=== PATIENT | female | born 1950 | race Caucasian/White ===

== ENCOUNTER 2017-03-05 22:50 | Inpatient (IN) | payer MEDICARE ==
[2017-03-06 00:02] VITALS: BP 112/63
[2017-03-06] MEDS ORDERED: Magnesium Hydroxide (MOM) 30 mL UDC PO PRN (00:18)
[2017-03-06] MEDS ORDERED: Maalox 30 mL Cup PO PRN (00:18)
[2017-03-06] MEDS: Multivitamin Tab PO SCH (09:08)
[2017-03-06] MEDS: Hydrocodone/APAP 5mg/325mg Tab PO PRN (13:44)
[2017-03-06] MEDS ORDERED: Haloperidol Lactate 5 mg/mL 1mL Vial ONE (17:05)
[2017-03-06] MEDS ORDERED: Haloperidol Lactate 5 mg/mL 1mL Vial IM ONE (17:23)
--- NOTE | 2017-03-07 03:00 | Consultation ---
DATE OF CONSULTATION: 03/06/2017 GENERAL MEDICINE CONSULTATION REASON FOR CONSULTATION: General medicine coverage. HISTORY OF PRESENT ILLNESS: This is a 66-year-old female with past medical of schizophrenia who was transferred from [facility] Emergency Room to [facility] due to [facility], for further psychiatric evaluation and management. A few hours prior to admission, the patient manifested the aggressive behavior at the [facility]. She was very agitated, irritable, violent to staff as well as other residents. The police as well as EMS were notified and she was eventually brought to [facility] Emergency Room. She was seen by psychiatrist in the Emergency Room and recommended transfer to [facility]. PAST MEDICAL HISTORY: 1. Schizophrenia. 2. Alzheimer dementia. 3. Dislocated hip. 4. Anemia of chronic disease. 5. Gastritis. CURRENT MEDICATIONS: Currently on acetaminophen, citalopram, famotidine, hydrocodone/APAP, lorazepam, magnesium hydroxide, metoprolol, quetiapine, Senokot, and zolpidem. ALLERGIES: No known drug allergies. SOCIAL AND FAMILY HISTORY: I was not able to obtain directly from the patient because she is not cooperative at this time. REVIEW OF SYSTEMS: Again, I was not able to decipher directly from the patient because as mentioned, she would not respond to my enquiries. PHYSICAL EXAMINATION: The patient was also not cooperative during my physical exam. GENERAL: The patient is alert and really not in distress. VITAL SIGNS: Her blood pressure is 135/77, pulse 78, and temperature afebrile. SKIN: Warm. No rash, no jaundice appreciated. HEENT: Head normocephalic, atraumatic. Eyes: Extraocular muscles intact, I was not able to assess her pupils at this time. Nose, midline nasal septum. Mouth: Dry mucosa, adequate dentition. NECK: Supple, no adenopathy, no thyromegaly, no bruits. Trachea palpated in the midline. CHEST AND CARDIOVASCULAR: S1, S2. No rub, murmur, nor gallop appreciated. Point of maximal impulse, fifth intercostal space, left midclavicular line. No abdominal or femoral bruits appreciated. LUNGS: Equal expansion. No use of accessory muscles. No supraclavicular retractions, decreased breath sounds, clear to auscultation without wheeze. BREAST: Symmetrical, without any discharge. ABDOMEN: Flat and soft. Positive for bowel sounds. No bruits either diastolic or systolic. RECTAL: The patient refused. GENITOURINARY: The patient refused. MUSCULOSKELETAL: No effusions present in her joints with adequate range of motion. EXTREMITIES: No evidence of edema, cyanosis, nor clubbing, but I was not allowed to palpate her pulses. NEUROLOGIC: As mentioned, the patient is ambulating, but not cooperative at the present time, so I was not able to pursue further my neuro exam. LABORATORY DATA: No labs available at this time. IMPRESSION: 1. Acute decompensation of psychosis. 2. History of schizophrenia. 3. Dislocated hip. 4. Anemia of chronic disease. 5. Gastritis. PLAN: 1. Follow up electrolytes, CBC, lipid panel, as well as TSH. 2. Continue psych meds as well as support. JOB# [id number]
[2017-03-07] MEDS: Multivitamin Tab PO SCH (09:55)
[2017-03-07 10:24] LABS: % BASOPHILS 1.2 % (0.0-2.0); % EOSINOPHILS 2.4 % (0.0-5.0); % LYMPHOCYTES 12.6 % (20.0-50.0); % MONOCYTES 7.7 % (2.0-10.0); % NEUTROPHILS 76.1 % (40.0-80.0); BASOPHILE ABSOLUTE 0.1 Th/cumm (0-0.2); EOSINOPHILE ABSOLUTE 0.2 Th/cmm (0.1-0.4); HEMATOCRIT 37.5 % (41.0-60); HEMOGLOBIN 12.3 gm/dL (12-16); MEAN CELL VOLUME 95.2 fl (81-100); MEAN CORPUSCULAR HEMOGLOBIN 31.4 pg (27.0-31.0); MEAN CORPUSCULAR HGB CONC 32.9 pg (28.0-36.0); MONOCYTE ABSOLUTE 0.6 Th/cmm (0.3-1.0); NEUTROPHILE ABSOLUTE 6.3 Th/cmm (1.8-8.0); PLATELET COUNT 291 Th/cmm (150-400); RED BLOOD COUNT 3.93 Mil/cmm (3.80-5.20); RED CELL DISTRIBUTION WIDTH 12.6 % (11.5-20.0); WHITE BLOOD COUNT 8.2 Th/cmm (4.8-10.8)
[2017-03-07 10:43] LABS: ALB/GLOB RATIO 1.4 (1.0-1.8); ALBUMIN 4.2 gm/dL (3.7-5.3); ALKALINE PHOSPHATASE 138 U/L (34-104); ANION GAP 14.4 (7.0-16.0); BILIRUBIN,TOTAL 0.2 mg/dL (0.3-1.0); BUN - UREA NITROGEN 14 mg/dL (7-25); CALCIUM SERUM 9.6 mg/dL (8.6-10.3); CARBON DIOXIDE 22.3 mEq/L (21.0-31.0); CHLORIDE 106 mEq/L (98-107); CHOLESTEROL 272 mg/dL (<200); CREATININE - SERUM 0.6 mg/dL (0.6-1.2); GFR AFRICAN-AMERICAN > 60.0 ml/min (>90); GFR NON AFRICAN-AMERICAN > 60.0 ml/min; GLUCOSE 111 mg/dL (70-105); HDL -HIGH DENSITY LIPOPROTEIN 54 mg/dL (23-92); POTASSIUM SERUM 3.7 mEq/L (3.5-5.1); SGOT 23 U/L (13-39); SGPT/ALT 19 U/L (7-52); SODIUM SERUM 139 mEq/L (136-145); TOTAL PROTEIN,SERUM 7.2 gm/dL (6.0-8.3); TRIGLYCERIDES 138 mg/dL (<150)
[2017-03-07] MEDS: Atorvastatin Calcium 10 MG TAB PO SCH (20:58)
--- NOTE | 2017-03-08 05:09 | Progress Notes ---
DATE: SUBJECTIVE: The patient was seen and evaluated. The patient's chart reviewed. Overnight, the patient required emergent medications after presenting very delusional and almost trying to hit one of the nursing staff. Today on [id number] evaluation, the patient continues to be very disorganized and delusional, needing a lot of redirection and assistance. MENTAL STATUS EXAMINATION: Disorganized, delusional, paranoid. ASSESSMENT AND PLAN: The patient continues to present aggressive, delusional, and unable to formulate a safe plan. We will continue reinitiating medications to target the patient's severe psychotic symptoms. JOB# [id number]
[2017-03-08] MEDS: Hydrocodone/APAP 5mg/325mg Tab PO PRN (06:29)
[2017-03-08] MEDS: Multivitamin Tab PO SCH (11:20)
--- NOTE | 2017-03-08 13:38 | Psychosocial Evaluation ---
DATE OF SERVICE: INITIAL PSYCHIATRIC EVALUATION The patient was seen and evaluated. The patient's chart reviewed. IDENTIFYING DATA: The patient is a 66-year-old female with paranoid schizophrenia history. JUSTIFICATION FOR ADMISSION AND HISTORY OF PRESENT ILLNESS: This 66-year-old female with history of schizophrenia and dementia, brought in here after the patient was very combative and aggressive in the long term. She was placed on a 5150 at [facility] and transferred for severe aggressive behavior. Today on [id number]-[id number] evaluation, the patient is very disorganized, disheveled, believing that she is being monitored and then becomes very irritable and believe that people are conspiring against her. PAST PSYCHIATRIC HISTORY: History of schizophrenia and dementia. PAST MEDICAL HISTORY: Anemia and dislocated hip history. FAMILY PSYCHIATRIC HISTORY: None. SOCIAL HISTORY: None. ALLERGIES TO MEDICATIONS: NKDA. CURRENT MEDICATIONS: She is on quetiapine 200 mg p.o. at bedtime and 100 mg p.o. b.i.d., famotidine, Celexa 40 mg a day, lorazepam as needed. MENTAL STATUS EXAMINATION: Seems irritable, agitated, disengaged, minimally interactive during the interview, does not give much information, extremely poor historian, disorganized thought process, psychotic and suspicious and paranoid, poor insight, judgment and impulse control. Awake, alert x 2. Unable to assess immediate memory due to patient refusing. ASSESSMENT AND PLAN: This is a 66-year-old female, who continues to present very paranoid, suspicious, unable to formulate safe plan. We will continue with the current medication regimen to target the patient severe aggressive behavior. PRIMARY DIAGNOSIS: Schizophrenia. SECONDARY DIAGNOSES: Dementia with behavioral disturbances with psychosis MEDICAL DIAGNOSIS: History of dislocated hip and anemia. PLAN: 1. Strength: Good ability for insight in the near future. 2. Weaknesses: Poor coping skills. ESTIMATED STAY BETWEEN: 5-10 days. DISCHARGE CRITERIA: The patient is to demonstrate good mood, no suicidal or homicidal ideation, good psychiatric followup, and good peer interaction. JOB# [id number] STONE
[2017-03-08] MEDS: Atorvastatin Calcium 10 MG TAB PO SCH (20:51)
[2017-03-09] MEDS: Hydrocodone/APAP 5mg/325mg Tab PO PRN ×3 (07:05→20:49)
--- NOTE | 2017-03-09 07:33 | Progress Notes ---
DATE: 03/08/2017 SUBJECTIVE: The patient was seen and evaluated. The patient's chart reviewed. This is Dr. Contreras covering myself. Today at nurse's standpoint, the patient still needed a lot of redirection, easily disorganized. Today on [id number] evaluation, it was unable to maintain a linear conversation. She jumps from one topic to another topic and disengaged in the interview. MENTAL STATUS EXAMINATION: Derails, delusional, disorganized thought process. ASSESSMENT AND PLAN: The patient is a 66-year-old female with a history of schizophrenia, unable to formulate a safe plan. We will continue with Seroquel at this time to target the patient's severe disorganized thought process of medications to reach a steady state of the 400 mg of quetiapine. JOB# [id number]
[2017-03-09] MEDS: Multivitamin Tab PO SCH (08:16)
[2017-03-09] MEDS: Atorvastatin Calcium 10 MG TAB PO SCH (20:50)
[2017-03-10] MEDS: Multivitamin Tab PO SCH (08:45)
--- NOTE | 2017-03-10 14:49 | Progress Notes ---
DATE: 03/09/2017 The patient is currently in the hospital, sent by this clinician from [place]. She was combative, aggressive. In fact, she was sent from [place] to [facility] and placed on a hold and from [facility] was sent to [facility] due to her aggressive behaviors. 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 Given her somewhat atypical presentation on exam, the patient is repetitive, disorganized, distraught still in a Lamar chair, requiring prompting and redirection, constant redirection, in fact medications were reviewed. MENTAL STATUS EXAMINATION: Derails, disorganized, confused. PLAN: The patient remains restless, not safe for discharge, not safe for a group home facility. We will continue to monitor and titrate and adjust medications. I did speak with daughter last week. JOB# [id number]
[2017-03-10] MEDS ORDERED: Haloperidol Lactate 5 mg/mL 1mL Vial IM ONE (16:15)
[2017-03-10] MEDS ORDERED: Haloperidol Lactate 5 mg/mL 1mL Vial ONE (16:32)
[2017-03-10] MEDS: Atorvastatin Calcium 10 MG TAB PO SCH (21:42)
[2017-03-11] MEDS: Multivitamin Tab PO SCH (08:59)
--- NOTE | 2017-03-11 09:41 | Progress Notes ---
DATE: SUBJECTIVE: The patient seen, chart reviewed, discussed with staff. The patient requiring a lot of redirection, Lamar chair, trying to get up, babbling speech, nonsensical, can be aggressive and intrusive. Currently on Seroquel 200 mg at bedtime, 100 mg twice daily. Seems that she does have impaired cognitive decline. We will consider Aricept and Namenda. 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 ASSESSMENT: The patient remains symptomatic, not safe for a lower level of care, still disorganized, odd bizarre and requiring high level of redirection. PLAN: We will continue to monitor, adjust medicine. JOB# [id number]
[2017-03-11] MEDS: Therahoney Gel 42.5gm Tube TP SCH (15:40)
[2017-03-11] MEDS: Atorvastatin Calcium 10 MG TAB PO SCH (20:57)
[2017-03-12] MEDS: Therahoney Gel 42.5gm Tube TP SCH (09:06)
[2017-03-12] MEDS: Multivitamin Tab PO SCH (09:10)
[2017-03-12] MEDS: Atorvastatin Calcium 10 MG TAB PO SCH (21:06)
--- NOTE | 2017-03-13 01:41 | Progress Notes ---
DATE: 03/11/2017 Dr. Solano covering for Dr. Contreras. SUBJECTIVE: Chart reviewed and the patient interviewed. Also discussed the patient's condition with the staff and reviewed records and labs. The patient still has unsteady gait and is still trying to get off bed. The patient also is still fearful and keeps calling staff to help her out. At the same time, the patient is calling names of other people, but does not exist and nobody around her when she calling those names. She is still confused and she is still forgetful and needs lots of redirections. She also still seems to be depressed and unable to answer questions coherently. ASSESSMENT: The patient is still confused and disorganized thoughts. TREATMENT PLAN: We will continue Celexa in a dose of 40 mg everyday. Also, increase Aricept to 10 mg everyday and we will continue to follow up her medications and her condition closely. [facility]# [id number]
[2017-03-13] MEDS: Multivitamin Tab PO SCH (08:40)
[2017-03-13] MEDS: Therahoney Gel 42.5gm Tube TP SCH (08:42)
--- NOTE | 2017-03-13 16:22 | Progress Notes ---
DATE: SUBJECTIVE: Chart reviewed and the patient interviewed. Also discussed the patient's condition with the staff and reviewed records and labs. The patient seems to be slightly calmer today and her calling imaginary names and imaginary people seems to be slightly less than the day before. She still calls imaginary people or names of people that are not with her. She seems to be less aggressive and less agitated. Also, her gait seems to be slightly more steady. Otherwise, the patient is compliant with taking her medications, with no side effects of medications. ASSESSMENT: The patient is still disorganized and psychotic. TREATMENT PLAN: Continue to monitor her behavior and her condition closely. Also, Seroquel was adjusted to 100 mg twice a day and 200 mg at bedtime and Aricept was increased yesterday to 10 mg every day. We will continue same dose and we will continue to follow up her behavior and her condition closely. [facility]# [id number]
[2017-03-13] MEDS: Atorvastatin Calcium 10 MG TAB PO SCH (20:43)
[2017-03-14] MEDS: Multivitamin Tab PO SCH (09:03)
[2017-03-14] MEDS: Therahoney Gel 42.5gm Tube TP SCH (09:04)
[2017-03-14] MEDS: Atorvastatin Calcium 10 MG TAB PO SCH (20:50)
--- NOTE | 2017-03-15 08:54 | Progress Notes ---
DATE: 03/13/2017 SUBJECTIVE: Chart reviewed and the patient interviewed. Also discussed the patient's condition with the staff and reviewed records and labs. The patient seems to be slightly calmer. She is still trying to get off the chair. The patient also is still actively hallucinating and calling names while she is in her room by herself of people, they are not existing. She also still has mood swings and she still at times gets agitated and unable to follow directions. Otherwise, the patient continued to comply with taking her medications with no side effects. ASSESSMENT: The patient is still psychotic and confused. TREATMENT PLAN: Seroquel was increased to 100 mg twice a day and 200 mg at bedtime as well as Aricept 10 mg every day. Continue same dose. Continue to monitor her behavior and her condition closely and continue to follow up. The patient's is showing some improvement and not as agitated. JOB# [id number]
[2017-03-15] MEDS: Multivitamin Tab PO SCH (09:24)
[2017-03-15] MEDS: Therahoney Gel 42.5gm Tube TP SCH (09:24)
[2017-03-15] MEDS: Atorvastatin Calcium 10 MG TAB PO SCH (21:11)
--- NOTE | 2017-03-16 06:51 | Progress Notes ---
DATE: 03/15/2017 SUBJECTIVE: The patient seen, chart reviewed, discussed with staff. The patient is still at times trying to get of the Lamar chair. She remains confused; disoriented; AO to name, not place. She knows the year is 2017, not quite sure about the month. She is ruminative, believes that I want her to follow me around which I tell her that is not necessary, still with mood swings, gets agitated, still intrusive, poor boundaries. ASSESSMENT: The patient remains confused, disoriented, still with problems following directions. PLAN: We will continue to monitor. Given her ongoing symptoms, she is not safe for discharge. I did review her medications. We will continue at current dose for now. JOB# [id number]
[2017-03-16] MEDS: Multivitamin Tab PO SCH (08:28)
[2017-03-16] MEDS: Therahoney Gel 42.5gm Tube TP SCH (08:29)
--- NOTE | 2017-03-16 18:56 | Progress Notes ---
DATE: 03/16/2017 SUBJECTIVE: The patient was seen today on 03/16/2017. The patient still at times is trying to get out of chair, confused, disoriented, stating that she lost her car and her keys, ruminative, not making any sense, still with poor boundaries, trying to get up, unruly at times. ASSESSMENT: The patient remains confused, intrusive, poor boundaries, still trying to get up, delusional and confused. PLAN: We will continue to monitor. The patient remains symptomatic, not safe for lower level of care. Currently on Seroquel 100 mg twice daily, 200 mg at bedtime and will be increasing her nighttime dosing of Seroquel to see if we can medicate him and calm down some of her behavioral disturbances. [facility]# [id number]
[2017-03-16] MEDS: Atorvastatin Calcium 10 MG TAB PO SCH (21:21)
--- NOTE | 2017-03-17 07:19 | Progress Notes ---
DATE: 03/14/2017 SUBJECTIVE: Chart reviewed and the patient interviewed. Also, discussed the patient's condition with the staff and reviewed records and labs. The patient continued to be confused and delusional. The patient is suspicious and paranoid. She is also reluctant to take medications and staff have to do efforts in order to convince her to take her medications. She also is still having episodes of yelling and screaming for no apparent reason. She also still seems to be responding to stimuli. Thought processes are disorganized and nonsensical. ASSESSMENT: The patient is still psychotic and agitated. TREATMENT PLAN: We will continue to monitor her behavior and condition closely. Also, continue adjusting psychotropic medications and continue to work on behavioral modification. [facility]# [id number]
[2017-03-17] MEDS: Multivitamin Tab PO SCH (08:25)
[2017-03-17] MEDS: Therahoney Gel 42.5gm Tube TP SCH (08:26)
[2017-03-17] MEDS: Atorvastatin Calcium 10 MG TAB PO SCH (21:50)
--- NOTE | 2017-03-17 23:39 | Progress Notes ---
DATE: 03/17/2017 SUBJECTIVE: The patient is seen, chart reviewed, discussed with staff. The patient remains agitated, demanding to one of the staff members , paranoid, delusional, nonsensical, still intrusive, poor boundaries, still on a Lamar chair, impulsive, unpredictable. ASSESSMENT: The patient remains symptomatic. Recent dose adjustments of medications. Given ongoing symptoms, she is not safe for discharge. PLAN: We will continue to titrate and adjust medications. JOB# [id number]
[2017-03-18] MEDS: Multivitamin Tab PO SCH (08:55)
[2017-03-18] MEDS: Therahoney Gel 42.5gm Tube TP SCH (08:55)
[2017-03-18] MEDS: Atorvastatin Calcium 10 MG TAB PO SCH (21:36)
[2017-03-18] MEDS: QUETIAPINE FUMARATE PO SCH (21:36)
--- NOTE | 2017-03-19 01:28 | Progress Notes ---
DATE: 03/18/2017 SUBJECTIVE: The patient seen, chart reviewed, discussed with staff. The patient was seen today 03/18/2017, remains demanding, paranoid, delusional, intrusive, ruminative, still with ongoing psychotic symptoms, not safe for discharge. She is currently in a Lamar chair. She is somewhat calmer versus yesterday. ASSESSMENT: The patient remains symptomatic, still psychotic, yelling, screaming, intrusive, and ruminative. PLAN: We will continue to monitor given her ongoing symptoms, she is not safe for discharge. We will continue to titrate and adjust medications. [facility]# [id number]
[2017-03-19] MEDS ORDERED: Maalox 30 mL Cup PO PRN (09:12)
[2017-03-19] MEDS ORDERED: Albuterol/Ipratropium Neb 3 ML AERS HHN PRN (09:12)
[2017-03-19] MEDS ORDERED: Acetaminophen 500 MG TAB PO PRN (09:12)
[2017-03-19] MEDS ORDERED: Magnesium Hydroxide (MOM) 30 mL UDC PO PRN (09:12)
[2017-03-19] MEDS ORDERED: Multivitamin Tab PO SCH (09:15)
[2017-03-19] MEDS ORDERED: Therahoney Gel 42.5gm Tube TP SCH (09:15)
[2017-03-19] MEDS: Aspirin 81mg Chewable Tab PO SCH (10:00)
[2017-03-19] MEDS: Multivitamin w/ Minerals Tab PO SCH (10:10)
[2017-03-19] MEDS: Pantoprazole 40 mg EC Tab PO SCH (10:10)
[2017-03-19] MEDS: Multivitamin Tab PO SCH (10:12)
[2017-03-19] MEDS: Therahoney Gel 42.5gm Tube TP SCH (10:13)
[2017-03-19] MEDS: Diclofenac 75 mg Tab PO SCH ×2 (13:00→16:51)
[2017-03-19] MEDS: Atorvastatin Calcium 10 MG TAB PO SCH (21:48)
[2017-03-19] MEDS: QUETIAPINE FUMARATE PO SCH (21:55)
--- NOTE | 2017-03-20 00:17 | Progress Notes ---
DATE: 03/19/2017 SUBJECTIVE: The patient seen, chart reviewed, discussed with staff. The patient remains odd, confused, talking about taking a bus to [place], nonsensical, disoriented, unable to care for her basic needs, likely approaching her baseline, currently in a Lamar chair, making nonsensical, bizarre and erratic statements, still with bizarre behaviors, intrusive, poor boundaries, yelling. MEDICATIONS: Noted. ASSESSMENT: The patient remains symptomatic, bizarre, delusional and confused. PLAN: We will continue to monitor. Given her ongoing symptoms, the patient is not safe for discharge. JOB# [id number]
[2017-03-20] MEDS: Pantoprazole 40 mg EC Tab PO SCH (06:33)
[2017-03-20] MEDS: Multivitamin Tab PO SCH (09:46)
[2017-03-20] MEDS: Aspirin 81mg Chewable Tab PO SCH (09:46)
[2017-03-20] MEDS: Multivitamin w/ Minerals Tab PO SCH (09:46)
[2017-03-20] MEDS: Therahoney Gel 42.5gm Tube TP SCH (09:59)
[2017-03-20] MEDS: Diclofenac 75 mg Tab PO SCH ×3 (13:00→17:54)
--- NOTE | 2017-03-20 19:43 | Progress Notes ---
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 Eating with prompting. Medications were reviewed including dosages and frequencies. ASSESSMENT: The patient remains symptomatic, still highly confused, disoriented, rambling nonsensically. PLAN: We will continue to monitor. The patient may benefit from adjustments of medications. We will increase Seroquel today to follow up. JOB# [id number]
[2017-03-20] MEDS: Atorvastatin Calcium 10 MG TAB PO SCH (20:26)
[2017-03-21] MEDS: Pantoprazole 40 mg EC Tab PO SCH (07:59)
--- NOTE | 2017-03-21 08:04 | Progress Notes ---
DATE: SUBJECTIVE: The patient seen, chart reviewed, discussed with staff. The patient is still talking about taking a bus to a different state, talking about nonsensical topics something from one topic to the next, highly confused, disoriented, wandering around, requiring a lot of prompting, a lot of redirection, highly confused, impulsive, and unpredictable. 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 MEDICATIONS: Reviewed. ASSESSMENT: The patient remains symptomatic, highly confused, requiring a lot of redirection, gravely disabled. PLAN: We will continue to monitor, continue to make appropriate medication adjustments. JOB# [id number]
[2017-03-21] MEDS: Multivitamin Tab PO SCH (08:25)
[2017-03-21] MEDS: Aspirin 81mg Chewable Tab PO SCH (08:27)
[2017-03-21] MEDS: Multivitamin w/ Minerals Tab PO SCH (08:36)
[2017-03-21] MEDS: Therahoney Gel 42.5gm Tube TP SCH (08:36)
[2017-03-21] MEDS: Diclofenac 75 mg Tab PO SCH ×2 (12:42→16:50)
[2017-03-21] MEDS: Atorvastatin Calcium 10 MG TAB PO SCH (20:32)
[2017-03-22] MEDS: Pantoprazole 40 mg EC Tab PO SCH (06:31)
[2017-03-22] MEDS: Multivitamin Tab PO SCH (08:28)
[2017-03-22] MEDS: Aspirin 81mg Chewable Tab PO SCH (08:28)
[2017-03-22] MEDS: Multivitamin w/ Minerals Tab PO SCH (08:29)
[2017-03-22] MEDS: Therahoney Gel 42.5gm Tube TP SCH (09:40)
[2017-03-22] MEDS: Diclofenac 75 mg Tab PO SCH ×2 (11:24→16:26)
[2017-03-22] MEDS: Atorvastatin Calcium 10 MG TAB PO SCH (20:21)
[2017-03-22] MEDS: Hydrocodone/APAP 5mg/325mg Tab PO PRN (22:00)
[2017-03-23] MEDS: Pantoprazole 40 mg EC Tab PO SCH (06:54)
--- NOTE | 2017-03-23 07:25 | Progress Notes ---
DATE: 03/22/2017 The patient is currently in the hospital, symptomatic, highly confused, disoriented, talking about driving her car to [place]. She is nonsensical on exam. The patient has absolutely no plans for self-care. She is unable to verbalize the plan for self-care. ASSESSMENT: The patient remains symptomatic, highly disoriented, disorganized, nonsensical on exam, rambling. We will monitor and follow up. Continue to adjust and titrate medications. [facility]# [id number]
[2017-03-23] MEDS: Aspirin 81mg Chewable Tab PO SCH (09:05)
[2017-03-23] MEDS: Multivitamin Tab PO SCH (09:05)
[2017-03-23] MEDS: Multivitamin w/ Minerals Tab PO SCH (09:05)
[2017-03-23] MEDS: Therahoney Gel 42.5gm Tube TP SCH (09:05)
[2017-03-23] MEDS: Diclofenac 75 mg Tab PO SCH ×2 (11:01→16:23)
[2017-03-23] MEDS: Atorvastatin Calcium 10 MG TAB PO SCH (20:44)
[2017-03-23] MEDS: Hydrocodone/APAP 5mg/325mg Tab PO PRN (21:52)
--- NOTE | 2017-03-24 05:36 | Progress Notes ---
DATE: 03/23/2017 SUBJECTIVE: The patient was seen on 03/23/2017, currently in the hospital, symptomatic, disoriented, still talking about driving her car to [place], wandering the units, mumbling to self, gravely disabled, unable to verbalize or carry through a plan for self-care due to her confusional state. MEDICATIONS: Reviewed. ASSESSMENT: The patient remains symptomatic, disoriented, disorganized, and not safe for discharge. We will continue to adjust and titrate medications. We are also trying to get her a safe discharge plan. JOB# [id number]
[2017-03-24] MEDS: Pantoprazole 40 mg EC Tab PO SCH (06:42)
[2017-03-24] MEDS: Therahoney Gel 42.5gm Tube TP SCH (09:19)
[2017-03-24] MEDS: Multivitamin w/ Minerals Tab PO SCH (09:20)
[2017-03-24] MEDS: Aspirin 81mg Chewable Tab PO SCH (09:20)
[2017-03-24] MEDS: Multivitamin Tab PO SCH (09:20)
--- NOTE | 2017-03-24 12:26 | Progress Notes ---
DATE: 03/24/2017 The patient is seen today, 03/24/2017. Remains disoriented, still confused, mumbling to self, but calmer, more cooperative, more amenable to treatment. She is requiring some prompting and redirection, seen pacing at times, unable to verbalize and clear plan for self-care due to her ongoing confusional state. MEDICATIONS: Reviewed. ASSESSMENT: The patient remains symptomatic, gravely disabled. We are trying to help her with placement. We will continue to monitor and titrate medications. She is significantly calmer, no longer in a Lamar chair. JOB# [id number]
[2017-03-24] MEDS: Diclofenac 75 mg Tab PO SCH ×2 (12:49→17:24)
[2017-03-24] MEDS: Hydrocodone/APAP 5mg/325mg Tab PO PRN (15:15)
[2017-03-24] MEDS ORDERED: Venelex 60gm Tube TP SCH (16:15)
[2017-03-24] MEDS ORDERED: Haloperidol Lactate 5 mg/mL 1mL Vial ONE (19:24)
[2017-03-24] MEDS: Atorvastatin Calcium 10 MG TAB PO SCH (21:15)
[2017-03-25] MEDS: Venelex 60gm Tube TP SCH (09:54)
[2017-03-25] MEDS: Multivitamin w/ Minerals Tab PO SCH (09:54)
[2017-03-25] MEDS: Pantoprazole 40 mg EC Tab PO SCH (09:54)
[2017-03-25] MEDS: Aspirin 81mg Chewable Tab PO SCH (09:54)
[2017-03-25] MEDS: Therahoney Gel 42.5gm Tube TP SCH (09:55)
[2017-03-25] MEDS: Diclofenac 75 mg Tab PO SCH ×2 (13:32→16:22)
--- NOTE | 2017-03-25 20:54 | Progress Notes ---
DATE: 03/25/2017 The patient seen, chart reviewed, discussed with staff. The patient was quite unruly last night, agitated, posturing towards staff, yelling, screaming and not redirectable. Today, she is calmer, but has no idea what happened yesterday, very confused, disoriented. She did receive emergency medications last night. MEDICATIONS: Reviewed. ASSESSMENT: The patient remains symptomatic, confused, disoriented, still unruly, agitated, got Emergency Haldol last night. PLAN: We will monitor for further 24 hours. Placement has been confirmed, but given her unruly behaviors there are overt safety concerns. JOB# [id number]
[2017-03-25] MEDS: Atorvastatin Calcium 10 MG TAB PO SCH (21:30)
[2017-03-26] MEDS: Pantoprazole 40 mg EC Tab PO SCH (06:53)
--- NOTE | 2017-03-26 08:17 | Discharge Summary ---
DATE OF DISCHARGE: 03/26/2017 DISCHARGE DATE: 03/26/2017. JUSTIFICATION FOR HOSPITALIZATION: Out of control and unruly behaviors. HISTORY OF PRESENT ILLNESS: A 66-year-old female brought in on a hold, aggressive at the [facility], requiring constant prompting, redirection, unable to be cared for their, highly confused, disoriented, irritable, believing people are conspiring against her. PAST PSYCHIATRIC HISTORY: Dementia. SOCIAL HISTORY: None. ALLERGIES: No known drug allergies. CURRENT MEDICATIONS: Noted. MENTAL STATUS EXAMINATION: Please see full psych eval for details. PROVISIONAL DIAGNOSIS: Rule out schizophrenia, also dementia, severe cognitive decline. PAST MEDICAL HISTORY: Please see full H and P. HOSPITAL COURSE: After initial assessment, the patient was admitted to the hospital. Medications were adjusted and titrated. Over the course of the hospitalization, she did improve, mood improved, affect improved, getting along better with staff and peers, still with some difficulty sleeping at night, but as the hospitalization progressed, her sleep did grossly normalized. She remained somewhat impulsive and unpredictable, but toward the latter end of her hospitalization, she was more redirectable. No SI. No HI. CONDITION UPON DISCHARGE: Improved, allowing ADLs, better eye contact, remains confused and disoriented. No SI, no HI. No overt psychotic symptoms and no agitation. She remains, however, quite disoriented. Insight and judgment diminished. PROVISIONAL DIAGNOSIS: Rule out schizophrenia, also dementia with behaviors. MEDICAL: Please see full H and P. PROGNOSIS: The patient follows up at the dementia unit in [place] and remains treatment compliant. Prognosis will improve, otherwise guarded. JOB# [id number]
[2017-03-26] MEDS: Aspirin 81mg Chewable Tab PO SCH (08:53)
[2017-03-26] MEDS: Multivitamin w/ Minerals Tab PO SCH (08:53)
[2017-03-26] MEDS: Therahoney Gel 42.5gm Tube TP SCH (08:56)
[2017-03-26] MEDS: Venelex 60gm Tube TP SCH (08:56)
[2017-03-26] MEDS: Diclofenac 75 mg Tab PO SCH (12:12)
[2017-03-26] MEDS: Hydrocodone/APAP 5mg/325mg Tab PO PRN (13:12)
== END 2017-03-26 15:15 | DRG 885 ==
LOC: GERO 22:50
PROVIDERS: ADMIT Psychiatry & Neurology Psychiatry; ATTEND Psychiatry & Neurology Psychiatry
DX: F20.9 Schizophrenia, unspecified (principal); F02.81 Dementia in other diseases classified elsewhere, unspecified severity, with behavioral disturbance; G30.9 Alzheimer's disease, unspecified; K29.70 Gastritis, unspecified, without bleeding; D63.8 Anemia in other chronic diseases classified elsewhere; F29 Unspecified psychosis not due to a substance or known physiological condition
CPT/HCPCS: 36415-UA; 80053-TC; 80061-TC; 84443-TC; 85025-TC; 90899; G0410; J1200; J1630; J2060; Z7610

== ENCOUNTER 2017-06-29 23:51 | Inpatient (IN) | payer MEDICARE, OTHER ==
[2017-06-30 00:20] LABS: % BASOPHILS 1.1 % (0.0-2.0); BASOPHILE ABSOLUTE 0.1 Th/cumm (0-0.2); EOSINOPHILE ABSOLUTE 0.2 Th/cmm (0.1-0.4); MEAN CORPUSCULAR HGB CONC 34.1 pg (28.0-36.0); RED BLOOD COUNT 3.93 Mil/cmm (3.80-5.20); RED CELL DISTRIBUTION WIDTH 12.6 % (11.5-20.0); WHITE BLOOD COUNT 6.3 Th/cmm (4.8-10.8)
[2017-06-30 00:28] LABS: % EOSINOPHILS 3.4 % (0.0-5.0); % LYMPHOCYTES 31.5 % (20.0-50.0); % MONOCYTES 12.7 % (2.0-10.0); % NEUTROPHILS 51.3 % (40.0-80.0); HEMATOCRIT 36.2 % (41.0-60); HEMOGLOBIN 12.3 gm/dL (12-16); MEAN CELL VOLUME 92.1 fl (81-100); MEAN CORPUSCULAR HEMOGLOBIN 31.4 pg (27.0-31.0); MEAN PLATELET VOLUME 7.7 fl; MONOCYTE ABSOLUTE 0.8 Th/cmm (0.3-1.0); NEUTROPHILE ABSOLUTE 3.2 Th/cmm (1.8-8.0); PLATELET COUNT 278 Th/cmm (150-400)
--- NOTE | 2017-06-30 00:36 | ED Physician Chart ---
ED Chief Complaint/HPI - Patient Information Date Seen:: 06/30/17 Time Seen:: 00:35 Chief Complaint:: Increased agitation History of Present Illness:: 66 yo female was brought from SNF to ER for evaluation of increased confusion and agitation. Patient was screaming in the ER. Allergies:: Allergies Allergy/AdvReac Type Severity Reaction Status Date / Time No Known Allergies Allergy Verified 12/17/16 13:02 Vitals:: Vital Signs - 8 hr 06/29/17 23:52 Temp 97.7 F HR 69 RR 18 BP 129/68 O2 Sat % 96 ED Review of Systems - Review of Systems General/Constitutional: No fever Skin: No bruising Head: No headache Eyes: No pain ENT: No nasal drainage Neck: No neck pain Cardio Vascular: No chest pain Pulmonary: No SOB GI: No nausea, No vomiting Musculoskeletal: No bone or joint pain Psychiatric: Prior psych history Neurological: No focal symptoms ED Past Medical History - Past Medical History Past Medical History: Arthritis, Other (Hip Dislocation, Opoid dependence) Social History: Non Smoker, No Alcohol, No Drug Use Surgical History: HIP Psychiatricy History: Schizophrenia Family Medical History - Family Member Mother History Unknown: Yes Ethnicity: Unknown Living Status: Unknown Hx Family Hypertension: Yes ED Physical Exam - Physical Examination General/Constitutional: Awake Head: Atraumatic Eyes: PERRL Skin: No ecchymosis ENMT: Nasal exam nl Neck: No nuchal rigidity Respiratory: No Wheeze/Rhonchi/Rales Cardio Vascular: RRR, No murmur, gallop, rubs, NL S1 S2 GI: No tenderness/rebounding/guarding Extremities: normal strength in all extremities Neuro/Psych: No focal deficits Other Neuro/Psych comments:: oriented to self and place, not time ED Labs/Radiology/EKG Results - Lab Results Results: Laboratory Tests 06/29/17 00:05 WBC 6.3 RBC 3.93 Hgb 12.3 Hct 36.2 L MCV 92.1 MCH 31.4 H MCHC Differential 34.1 RDW 12.6 Plt Count 278 MPV 7.7 Neutrophils % 51.3 Lymphocytes % 31.5 Monocytes % 12.7 H Eosinophils % 3.4 Basophils % 1.1 Laboratory Last Values WBC 5.3 Th/cmm (4.8-10.8) 06/30/17 06:15 RBC 3.65 Mil/cmm (3.80-5.20) L 06/30/17 06:15 Hgb 11.5 gm/dL (12-16) L 06/30/17 06:15 Hct 33.6 % (41.0-60) L 06/30/17 06:15 MCV 92.0 fl (81-100) 06/30/17 06:15 MCH 31.6 pg (27.0-31.0) H 06/30/17 06:15 MCHC Differential 34.3 pg (28.0-36.0) 06/30/17 06:15 RDW 12.6 % (11.5-20.0) 06/30/17 06:15 Plt Count 257 Th/cmm (150-400) 06/30/17 06:15 MPV 8.2 fl 06/30/17 06:15 Neutrophils % 55.2 % (40.0-80.0) 06/30/17 06:15 Lymphocytes % 24.8 % (20.0-50.0) 06/30/17 06:15 Monocytes % 14.8 % (2.0-10.0) H 06/30/17 06:15 Eosinophils % 4.3 % (0.0-5.0) 06/30/17 06:15 Basophils % 0.9 % (0.0-2.0) 06/30/17 06:15 Sodium 140 mEq/L (136-145) 06/30/17 06:13 Potassium 3.9 mEq/L (3.5-5.1) 06/30/17 06:13 Chloride 106 mEq/L (98-107) 06/30/17 06:13 Carbon Dioxide 27.6 mEq/L (21.0-31.0) 06/30/17 06:13 Anion Gap 10.3 (7.0-16.0) 06/30/17 06:13 BUN 14 mg/dL (7-25) 06/30/17 06:13 Creatinine 0.6 mg/dL (0.6-1.2) 06/30/17 06:13 Est GFR ( Amer) > 60.0 ml/min (>90) 06/30/17 06:13 Est GFR (Non-Af Amer) > 60.0 ml/min 06/30/17 06:13 BUN/Creatinine Ratio 23.3 06/30/17 06:13 Glucose 87 mg/dL (70-105) 06/30/17 06:13 Calcium 8.9 mg/dL (8.6-10.3) 06/30/17 06:13 Magnesium 2.0 mg/dL (1.9-2.7) 06/30/17 00:05 Total Bilirubin 0.3 mg/dL (0.3-1.0) 06/29/17 00:05 AST 26 U/L (13-39) 06/29/17 00:05 ALT 35 U/L (7-52) 06/29/17 00:05 Alkaline Phosphatase 126 U/L (34-104) H 06/29/17 00:05 Troponin I < 0.01 ng/mL (0.01-0.05) L 06/30/17 00:05 B-Natriuretic Peptide 19.8 pg/mL (5.0-100.0) 06/30/17 00:05 Total Protein 6.8 gm/dL (6.0-8.3) 06/29/17 00:05 Albumin 3.9 gm/dL (3.7-5.3) 06/29/17 00:05 Globulin 2.9 gm/dL 06/29/17 00:05 Albumin/Globulin Ratio 1.3 (1.0-1.8) 06/29/17 00:05 TSH 1.93 uIU/ml (0.34-5.60) 06/29/17 00:05 Urine Source RANDOM 06/30/17 01:10 Urine Color YELLOW 06/30/17 01:10 Urine Clarity CLEAR (CLEAR) 06/30/17 01:10 Urine pH 7.0 (4.6 - 8.0) 06/30/17 01:10 Ur Specific [place] 1.010 (1.005-1.030) 06/30/17 01:10 Urine Protein NEGATIVE mg/dL (NEGATIVE) 06/30/17 01:10 Urine Glucose (UA) NEGATIVE mg/dL (NEGATIVE) 06/30/17 01:10 Urine Ketones NEGATIVE mg/dL (NEGATIVE) 06/30/17 01:10 Urine Blood NEGATIVE (NEGATIVE) 06/30/17 01:10 Urine Nitrate NEGATIVE (NEGATIVE) 06/30/17 01:10 Urine Bilirubin NEGATIVE (NEGATIVE) 06/30/17 01:10 Urine Urobilinogen 0.2 E.U./dL (0.2 - 1.0) 06/30/17 01:10 Ur Leukocyte Esterase TRACE (NEGATIVE) H 06/30/17 01:10 Urine RBC 0-2 /hpf (0-5) 06/30/17 01:10 Urine WBC 2-5 /hpf (0-5) 06/30/17 01:10 Ur Epithelial Cells FEW /lpf (FEW) 06/30/17 01:10 Urine Bacteria FEW /hpf (NONE SEEN) 06/30/17 01:10 - Radiology Results Results: CXR: No focal consolidation ED Assessment - Assessment General Assessment: UTI Psychosis Schizophrenia Assessment/Comments:: CBC, CMP, UA CXR, EKG Rocephin NS 1L IV bolus Admit to med surg ED Septic Shock - . Is Septic Shock (SBP<90, OR Lactate>4 mmol\L) present?: No - <6hrs of presentation: Vital Signs: Vital Signs - 8 hr 06/29/17 23:52 Temp 97.7 F HR 69 RR 18 BP 129/68 O2 Sat % 96 ED Reassessment (Disposition) - Reassessment Reassessment Condition:: Improved - Patient Disposition Discharge/Transfer:: Acute Care w/in this hosp Admitting Medical Physician:: Jonh Bennett ED Discharge Plan - Patient Disposition Admit/Discharge/Transfer: Acute Care w/in this hosp
[2017-06-30 00:44] LABS: ALB/GLOB RATIO 1.3 (1.0-1.8); ALBUMIN 3.9 gm/dL (3.7-5.3); ALKALINE PHOSPHATASE 126 U/L (34-104); BILIRUBIN,TOTAL 0.3 mg/dL (0.3-1.0); BUN - UREA NITROGEN 18 mg/dL (7-25); CALCIUM SERUM 9.4 mg/dL (8.6-10.3); CARBON DIOXIDE 26.1 mEq/L (21.0-31.0); CHLORIDE 102 mEq/L (98-107); CREATININE - SERUM 0.7 mg/dL (0.6-1.2); GFR AFRICAN-AMERICAN > 60.0 ml/min (>90); GFR NON AFRICAN-AMERICAN > 60.0 ml/min; GLUCOSE 98 mg/dL (70-105); POTASSIUM SERUM 4.1 mEq/L (3.5-5.1); SGOT 26 U/L (13-39); SGPT/ALT 35 U/L (7-52); SODIUM SERUM 136 mEq/L (136-145); TOTAL PROTEIN,SERUM 6.8 gm/dL (6.0-8.3)
[2017-06-30 02:02] LABS: URINE MICROSCOPIC INDICATED? YES; URINE SOURCE RANDOM
[2017-06-30 02:05] LABS: URINE BILIRUBIN NEGATIVE (NEGATIVE); URINE BLOOD NEGATIVE (NEGATIVE); URINE GLUCOSE (UA) NEGATIVE (NEGATIVE); URINE KETONE NEGATIVE (NEGATIVE); URINE LEUKOCYTE ESTERASE TRACE (NEGATIVE); URINE NITRATE NEGATIVE (NEGATIVE); URINE PROTEIN NEGATIVE (NEGATIVE); URINE UROBILINOGEN 0.2 E.U./dL (0.2 - 1.0)
[2017-06-30 02:17] LABS: URINE CLARITY CLEAR (CLEAR); URINE COLOR YELLOW
[2017-06-30 02:25] LABS: URINE BACTERIA FEW /hpf (NONE SEEN); URINE EPITHELIAL CELLS FEW /lpf (FEW); URINE RBC 0-2 /hpf (0-5)
[2017-06-30] MEDS ORDERED: cefTRIAXone 1 GM in Sodium Chloride 0.9% 50 ML IV ONE (02:45)
[2017-06-30] MEDS ORDERED: Sodium Chloride 0.9% 1,000 ML IV ONE (02:46)
[2017-06-30 07:43] LABS: % BASOPHILS 0.9 % (0.0-2.0); % EOSINOPHILS 4.3 % (0.0-5.0); % LYMPHOCYTES 24.8 % (20.0-50.0); % MONOCYTES 14.8 % (2.0-10.0); % NEUTROPHILS 55.2 % (40.0-80.0); EOSINOPHILE ABSOLUTE 0.2 Th/cmm (0.1-0.4); HEMATOCRIT 33.6 % (41.0-60); HEMOGLOBIN 11.5 gm/dL (12-16); LYMPHOCYTE ABSOLUTE 1.3 Th/cmm (1.5-3.0); MEAN CORPUSCULAR HEMOGLOBIN 31.6 pg (27.0-31.0); MEAN CORPUSCULAR HGB CONC 34.3 pg (28.0-36.0); MEAN PLATELET VOLUME 8.2 fl; MONOCYTE ABSOLUTE 0.8 Th/cmm (0.3-1.0); PLATELET COUNT 257 Th/cmm (150-400); RED BLOOD COUNT 3.65 Mil/cmm (3.80-5.20); RED CELL DISTRIBUTION WIDTH 12.6 % (11.5-20.0); WHITE BLOOD COUNT 5.3 Th/cmm (4.8-10.8)
[2017-06-30 07:50] LABS: ANION GAP 10.3 (7.0-16.0); BUN - UREA NITROGEN 14 mg/dL (7-25); CALCIUM SERUM 8.9 mg/dL (8.6-10.3); CARBON DIOXIDE 27.6 mEq/L (21.0-31.0); CHLORIDE 106 mEq/L (98-107); CREATININE - SERUM 0.6 mg/dL (0.6-1.2); GFR AFRICAN-AMERICAN > 60.0 ml/min (>90); GFR NON AFRICAN-AMERICAN > 60.0 ml/min; GLUCOSE 87 mg/dL (70-105); POTASSIUM SERUM 3.9 mEq/L (3.5-5.1); SODIUM SERUM 140 mEq/L (136-145)
[2017-06-30] MEDS ORDERED: Acetaminophen 500 MG TAB PO PRN (08:22)
[2017-06-30] MEDS ORDERED: Fleet Enema 135 mL RC PRN (08:22)
[2017-06-30] MEDS ORDERED: Ipratropium Neb 0.5 mg/2.5 mL UD IH PRN (08:24)
[2017-06-30] MEDS ORDERED: Albuterol Nebulizer 2.5mg/3mL HHN PRN (08:24)
--- NOTE | 2017-06-30 08:51 | Diagnostic Imaging Report ---
CHEST X-RAY: AP view INDICATION: Shortness of breath COMPARISON: 01/14/2017 FINDINGS: Chronic lung changes are noted. There is no focal consolidation or pleural effusions. Degenerative changes of the spine are noted. IMPRESSION: No acute cardiopulmonary disease.
[2017-06-30] MEDS ORDERED: VTE Chemical Prophylaxis Screen/Admission MC PRN (09:12)
[2017-06-30] MEDS: Vitamin D3 2,000 IU SGL PO SCH (10:01)
[2017-06-30] MEDS: Haldol Oral Sol.(concentrate) 10 mg/5 mL Udc PO SCH ×2 (10:02→21:44)
[2017-06-30] MEDS: cefTRIAXone 1 GM in Sodium Chloride 0.9% 50 ML IV SCH (10:48)
[2017-06-30] MEDS: D5-0.45NS 1,000 ML IV SCH ×2 (10:48→21:00)
[2017-06-30] MEDS ORDERED: Haloperidol Lactate 5 mg/mL 1mL Vial IM ONE (14:33)
--- NOTE | 2017-06-30 15:38 | Internal Medicine Prog Note ---
Internal Medicine Subjective - Subjective Service Date: 06/30/17 ([id number] hn ) Internal Medicine Objective - Results Result Diagrams: 06/30/17 06:15 06/30/17 06:13 Recent Labs: Laboratory Last Values WBC 5.3 Th/cmm (4.8-10.8) 06/30/17 06:15 RBC 3.65 Mil/cmm (3.80-5.20) L 06/30/17 06:15 Hgb 11.5 gm/dL (12-16) L 06/30/17 06:15 Hct 33.6 % (41.0-60) L 06/30/17 06:15 MCV 92.0 fl (81-100) 06/30/17 06:15 MCH 31.6 pg (27.0-31.0) H 06/30/17 06:15 MCHC Differential 34.3 pg (28.0-36.0) 06/30/17 06:15 RDW 12.6 % (11.5-20.0) 06/30/17 06:15 Plt Count 257 Th/cmm (150-400) 06/30/17 06:15 MPV 8.2 fl 06/30/17 06:15 Neutrophils % 55.2 % (40.0-80.0) 06/30/17 06:15 Lymphocytes % 24.8 % (20.0-50.0) 06/30/17 06:15 Monocytes % 14.8 % (2.0-10.0) H 06/30/17 06:15 Eosinophils % 4.3 % (0.0-5.0) 06/30/17 06:15 Basophils % 0.9 % (0.0-2.0) 06/30/17 06:15 Sodium 140 mEq/L (136-145) 06/30/17 06:13 Potassium 3.9 mEq/L (3.5-5.1) 06/30/17 06:13 Chloride 106 mEq/L (98-107) 06/30/17 06:13 Carbon Dioxide 27.6 mEq/L (21.0-31.0) 06/30/17 06:13 Anion Gap 10.3 (7.0-16.0) 06/30/17 06:13 BUN 14 mg/dL (7-25) 06/30/17 06:13 Creatinine 0.6 mg/dL (0.6-1.2) 06/30/17 06:13 Est GFR ( Amer) > 60.0 ml/min (>90) 06/30/17 06:13 Est GFR (Non-Af Amer) > 60.0 ml/min 06/30/17 06:13 BUN/Creatinine Ratio 23.3 06/30/17 06:13 Glucose 87 mg/dL (70-105) 06/30/17 06:13 Calcium 8.9 mg/dL (8.6-10.3) 06/30/17 06:13 Magnesium 2.0 mg/dL (1.9-2.7) 06/30/17 00:05 Total Bilirubin 0.3 mg/dL (0.3-1.0) 06/29/17 00:05 AST 26 U/L (13-39) 06/29/17 00:05 ALT 35 U/L (7-52) 06/29/17 00:05 Alkaline Phosphatase 126 U/L (34-104) H 06/29/17 00:05 Troponin I < 0.01 ng/mL (0.01-0.05) L 06/30/17 00:05 B-Natriuretic Peptide 19.8 pg/mL (5.0-100.0) 06/30/17 00:05 Total Protein 6.8 gm/dL (6.0-8.3) 06/29/17 00:05 Albumin 3.9 gm/dL (3.7-5.3) 06/29/17 00:05 Globulin 2.9 gm/dL 06/29/17 00:05 Albumin/Globulin Ratio 1.3 (1.0-1.8) 06/29/17 00:05 TSH 1.93 uIU/ml (0.34-5.60) 06/29/17 00:05 Urine Source RANDOM 06/30/17 01:10 Urine Color YELLOW 06/30/17 01:10 Urine Clarity CLEAR (CLEAR) 06/30/17 01:10 Urine pH 7.0 (4.6 - 8.0) 06/30/17 01:10 Ur Specific [place] 1.010 (1.005-1.030) 06/30/17 01:10 Urine Protein NEGATIVE mg/dL (NEGATIVE) 06/30/17 01:10 Urine Glucose (UA) NEGATIVE mg/dL (NEGATIVE) 06/30/17 01:10 Urine Ketones NEGATIVE mg/dL (NEGATIVE) 06/30/17 01:10 Urine Blood NEGATIVE (NEGATIVE) 06/30/17 01:10 Urine Nitrate NEGATIVE (NEGATIVE) 06/30/17 01:10 Urine Bilirubin NEGATIVE (NEGATIVE) 06/30/17 01:10 Urine Urobilinogen 0.2 E.U./dL (0.2 - 1.0) 06/30/17 01:10 Ur Leukocyte Esterase TRACE (NEGATIVE) H 06/30/17 01:10 Urine RBC 0-2 /hpf (0-5) 06/30/17 01:10 Urine WBC 2-5 /hpf (0-5) 06/30/17 01:10 Ur Epithelial Cells FEW /lpf (FEW) 06/30/17 01:10 Urine Bacteria FEW /hpf (NONE SEEN) 06/30/17 01:10 - Physical Exam Vitals and I&O: Vital Signs Temp 97.6 F 06/30/17 11:50 Pulse 81 06/30/17 13:09 Resp 18 06/30/17 13:09 BP 126/81 06/30/17 11:50 Pulse Ox 95 06/30/17 13:09 Intake & Output 06/29/17 06/30/17 06/30/17 18:59 06:59 18:59 Intake Total 2100 Balance 2100 Intake: Intake, IV Amount 2100 Sodium Chloride 0.9% 1, 1000 000 ml @ Wide Open IV . Q0M ONE Rx#:[id number] cefTRIAXone 1 gm In 50 Sodium Chloride 0.9% 50 ml @ 100 mls/hr IV X1 ONE Rx#:[id number] Active Medications: Current Medications Acetaminophen (Tylenol Extra Strength) 500 mg PO Q6H PRN PRN Reason: MOD PAIN Stop: 08/29/17 08:21 Acetaminophen (Tylenol) 650 mg PO Q4H PRN PRN Reason: Pain Or Fever above 101 Stop: 08/29/17 08:23 Albuterol Sulfate (Albuterol 2.5mg/3ml Neb Ud) 2.5 mg HHN Q2HRT PRN PRN Reason: Shortness of Breath or Wheeze Stop: 08/29/17 08:23 Bisacodyl (Dulcolax 10 Mg Supp) 10 mg RC DAILY PRN PRN Reason: Constipation Stop: 08/29/17 08:21 Citalopram Hydrobromide (Celexa) 40 mg PO DAILY [facility] PRN Reason: Protocol Stop: 08/29/17 08:59 Last Admin: 06/30/17 10:01 Dose: 40 mg Cyanocobalamin (Vitamin B12) 1,000 mcg PO DAILY [facility] Stop: 08/29/17 08:59 Last Admin: 06/30/17 10:01 Dose: 1,000 mcg Divalproex Sodium (Depakote Dr) 250 mg PO BID GEOFFREY PRN Reason: Protocol Stop: 08/29/17 08:59 Last Admin: 06/30/17 10:01 Dose: 250 mg Haloperidol Lactate (Haldol Concentrate 10mg/5ml Susp) 2 mg PO Q12HR [facility] PRN Reason: Protocol Stop: 08/29/17 08:59 Last Admin: 06/30/17 10:02 Dose: 2 mg Heparin Sodium (Porcine) (Heparin) 5,000 units SUBQ Q12H [facility] Stop: 08/29/17 20:59 Ceftriaxone Sodium 1 gm/ (Sodium Chloride) 50 mls @ 100 mls/hr IV Q24HR [facility] Stop: 08/29/17 08:29 Last Admin: 06/30/17 10:48 Dose: 100 mls/hr Dextrose/Sodium Chloride (D5-0.45ns) 1,000 mls @ 80 mls/hr IV .[id number] [facility] Stop: 08/29/17 08:29 Last Admin: 06/30/17 10:48 Dose: 80 mls/hr Ipratropium [employer] (Atrovent Neb 0.5mg/2.5ml) 0.5 mg IH Q2HRT PRN PRN Reason: Shortness of Breath or Wheeze Stop: 08/29/17 08:23 Lorazepam (Ativan) 0.5 mg IVP Q4HR PRN; Protocol PRN Reason: Agitation Stop: 08/29/17 11:43 Last Admin: 06/30/17 12:21 Dose: 0.5 mg Miscellaneous (Vte Chemical Prophylaxis Screen/ Admission) 1 ea [facility] PRN PRN PRN Reason: PROTOCOL Stop: 08/29/17 09:11 Ondansetron HCl (Zofran) 4 mg IV Q8H PRN PRN Reason: Nausea / Vomiting Stop: 08/29/17 08:23 Quetiapine Fumarate (Seroquel) 400 mg PO HS [facility] PRN Reason: Protocol Stop: 08/29/17 20:59 Quetiapine Fumarate (Seroquel Xr) 200 mg PO BID [facility]Y PRN Reason: Protocol Stop: 08/29/17 08:59 Last Admin: 06/30/17 10:02 Dose: 200 mg Sodium Phosphate (Fleet Enema) 135 ml RC DAILY PRN PRN Reason: Constipation Stop: 08/29/17 08:21 Tramadol HCl (Ultram) 50 mg PO Q6H PRN PRN Reason: Severe pain Stop: 08/29/17 08:21 Vitamin D (Vitamin D3) 2,000 iu PO DAILY [facility] Stop: 08/29/17 08:59 Last Admin: 06/30/17 10:01 Dose: 2,000 iu
--- NOTE | 2017-06-30 17:45 | History & Physical ---
ADMIT DATE: 06/30/2017 CHIEF COMPLAINT: Acute UTI and altered mental status. HISTORY OF PRESENT ILLNESS: This is a 66-year-old female who is a skilled nursing resident ____ who is admitted here to the med/surg unit due to increased confusion. In the ER, the patient was noted with acute UTI. For further management, the patient is now admitted here to the med-surg unit. PAST MEDICAL HISTORY: Hip dislocation, osteoarthritis, schizophrenia, dementia and opioid dependence. PAST SURGICAL HISTORY: Hip surgery. FAMILY HISTORY: Noncontributory. SOCIAL HISTORY: The patient is a skilled nursing resident, requiring 24-hour nursing care. REVIEW OF SYSTEMS: GENERAL: Denies any fevers and chills. CARDIOVASCULAR: Denies chest pain. RESPIRATORY: Denies shortness of breath. GASTROINTESTINAL: Denies nausea, vomiting or abdominal pain. GENITOURINARY: Denies increased frequency or dysuria. NEUROLOGIC: No headaches, seizures or syncope. All systems are reviewed and are negative. PHYSICAL EXAMINATION: GENERAL: The patient is well developed, well nourished, no acute distress. VITAL SIGNS: Temperature 97.6, heart rate 81, blood pressure 126/81, respirations 18 and O2 95%. HEENT: Head; normocephalic, atraumatic. NECK: Supple. No mass. LUNGS: Clear bilaterally. HEART: Regular rate and rhythm. ABDOMEN: Soft and nontender. LABORATORY DATA: WBC 5.3, H and H 11.5 and 33.6 and platelet of 257. Sodium 140, potassium 3.9, chloride 106, BUN 14 and creatinine 0.6. DIAGNOSTIC DATA: The patient had a chest x-ray done and impression is no acute cardiopulmonary processes. ASSESSMENT: Acute urinary tract infection, altered mental status, osteoarthritis, schizophrenia and dementia. PLAN: We will keep the patient on empiric IV antibiotics of Rocephin, IV fluids for hydration. We will get 1:1 sitter for safety. We will also get a Psychiatry consultation. We will continue to follow this patient. JOB# [id number]
[2017-07-01 06:05] LABS: % BASOPHILS 0.7 % (0.0-2.0); % EOSINOPHILS 3.4 % (0.0-5.0); % LYMPHOCYTES 30.3 % (20.0-50.0); % MONOCYTES 14.4 % (2.0-10.0); % NEUTROPHILS 51.2 % (40.0-80.0); EOSINOPHILE ABSOLUTE 0.2 Th/cmm (0.1-0.4); HEMATOCRIT 35.6 % (41.0-60); HEMOGLOBIN 12.4 gm/dL (12-16); LYMPHOCYTE ABSOLUTE 1.8 Th/cmm (1.5-3.0); MEAN CELL VOLUME 92.5 fl (81-100); MEAN CORPUSCULAR HEMOGLOBIN 32.2 pg (27.0-31.0); MEAN CORPUSCULAR HGB CONC 34.8 pg (28.0-36.0); MEAN PLATELET VOLUME 7.7 fl; MONOCYTE ABSOLUTE 0.9 Th/cmm (0.3-1.0); NEUTROPHILE ABSOLUTE 3.2 Th/cmm (1.8-8.0); PLATELET COUNT 248 Th/cmm (150-400); RED BLOOD COUNT 3.85 Mil/cmm (3.80-5.20); RED CELL DISTRIBUTION WIDTH 12.7 % (11.5-20.0); WHITE BLOOD COUNT 6.1 Th/cmm (4.8-10.8)
[2017-07-01 06:28] LABS: ANION GAP 12.4 (7.0-16.0); BUN - UREA NITROGEN 15 mg/dL (7-25); CALCIUM SERUM 9.1 mg/dL (8.6-10.3); CARBON DIOXIDE 22.3 mEq/L (21.0-31.0); CHLORIDE 107 mEq/L (98-107); CREATININE - SERUM 0.6 mg/dL (0.6-1.2); GFR AFRICAN-AMERICAN > 60.0 ml/min (>90); GFR NON AFRICAN-AMERICAN > 60.0 ml/min; GLUCOSE 86 mg/dL (70-105); POTASSIUM SERUM 3.7 mEq/L (3.5-5.1); SODIUM SERUM 138 mEq/L (136-145)
[2017-07-01] MEDS: cefTRIAXone 1 GM in Sodium Chloride 0.9% 50 ML IV SCH (08:56)
[2017-07-01] MEDS ORDERED: Probiotic Screen MC PRN (09:30)
[2017-07-01] MEDS: Vitamin D3 2,000 IU SGL PO SCH (09:47)
[2017-07-01] MEDS: Haldol Oral Sol.(concentrate) 10 mg/5 mL Udc PO SCH ×2 (09:49→20:52)
--- NOTE | 2017-07-01 11:47 | Consultation ---
DATE OF CONSULTATION: 07/01/2017 PSYCHIATRIC CONSULTATION PHYSICIAN REQUESTING CONSULTATION: Dr. Bennett. REASON FOR CONSULTATION: Agitated behavior. HISTORY OF PRESENT ILLNESS: This patient has been admitted over here for increased confusion and acute UTI and a Psychiatric consultation is called to address the issue of the patient's psychosis. Chart is reviewed. The patient is interviewed. The patient has been reported to have been out of control yesterday and the patient has to be given a dose of the Haldol to contain her agitated behavior. At this time, I am trying to get some information from the patient, but the patient is noted to be very, very drowsy and the staff are requesting that the patient has been ordered to not be disturbed at this time because of her agitation and the patient being medicated. I reviewed the past history, it is indicated that the patient has been diagnosed with schizophrenia and dementia. MEDICAL HISTORY: Significant for dislocated hip. CURRENT MEDICATIONS: Include the Seroquel, Celexa, and the patient is being given the lorazepam as needed. MENTAL STATUS EXAMINATION: The patient is looking her stated age, but she is sleeping at this time. I am not able to get much of information. The patient, however, is reported to have been out of control yesterday and has to be given a dose of medications to calm her down. The patient is going to be followed up by me again and a detailed psychiatric note is going to be dictated. DIAGNOSES: 1A. Schizophrenia by history. 1B. Dementia and behavioral changes secondary to it. PLAN: To continue the patient with the Seroquel and Celexa and follow the patient up. Thank you, Dr. Bennett, for allowing me to participate in the care of the patient. JOB# [id number]
--- NOTE | 2017-07-01 13:07 | Internal Medicine Prog Note ---
Internal Medicine Subjective - Subjective Service Date: 07/01/17 (per nursing staff patient agitated this morning) Patient seen and examined:: with staff Patient is:: asleep, in bed Per staff patient has:: tolerating meds Internal Medicine Objective - Results Result Diagrams: 07/01/17 05:45 07/01/17 05:45 Recent Labs: Laboratory Last Values WBC 6.1 Th/cmm (4.8-10.8) 07/01/17 05:45 RBC 3.85 Mil/cmm (3.80-5.20) 07/01/17 05:45 Hgb 12.4 gm/dL (12-16) 07/01/17 05:45 Hct 35.6 % (41.0-60) L 07/01/17 05:45 MCV 92.5 fl (81-100) 07/01/17 05:45 MCH 32.2 pg (27.0-31.0) H 07/01/17 05:45 MCHC Differential 34.8 pg (28.0-36.0) 07/01/17 05:45 RDW 12.7 % (11.5-20.0) 07/01/17 05:45 Plt Count 248 Th/cmm (150-400) 07/01/17 05:45 MPV 7.7 fl 07/01/17 05:45 Neutrophils % 51.2 % (40.0-80.0) 07/01/17 05:45 Lymphocytes % 30.3 % (20.0-50.0) 07/01/17 05:45 Monocytes % 14.4 % (2.0-10.0) H 07/01/17 05:45 Eosinophils % 3.4 % (0.0-5.0) 07/01/17 05:45 Basophils % 0.7 % (0.0-2.0) 07/01/17 05:45 Sodium 138 mEq/L (136-145) 07/01/17 05:45 Potassium 3.7 mEq/L (3.5-5.1) 07/01/17 05:45 Chloride 107 mEq/L (98-107) 07/01/17 05:45 Carbon Dioxide 22.3 mEq/L (21.0-31.0) 07/01/17 05:45 Anion Gap 12.4 (7.0-16.0) 07/01/17 05:45 BUN 15 mg/dL (7-25) 07/01/17 05:45 Creatinine 0.6 mg/dL (0.6-1.2) 07/01/17 05:45 Est GFR ( Amer) > 60.0 ml/min (>90) 07/01/17 05:45 Est GFR (Non-Af Amer) > 60.0 ml/min 07/01/17 05:45 BUN/Creatinine Ratio 25.0 07/01/17 05:45 Glucose 86 mg/dL (70-105) 07/01/17 05:45 Calcium 9.1 mg/dL (8.6-10.3) 07/01/17 05:45 Magnesium 2.0 mg/dL (1.9-2.7) 06/30/17 00:05 Total Bilirubin 0.3 mg/dL (0.3-1.0) 06/29/17 00:05 AST 26 U/L (13-39) 06/29/17 00:05 ALT 35 U/L (7-52) 06/29/17 00:05 Alkaline Phosphatase 126 U/L (34-104) H 06/29/17 00:05 Troponin I < 0.01 ng/mL (0.01-0.05) L 06/30/17 00:05 B-Natriuretic Peptide 19.8 pg/mL (5.0-100.0) 06/30/17 00:05 Total Protein 6.8 gm/dL (6.0-8.3) 06/29/17 00:05 Albumin 3.9 gm/dL (3.7-5.3) 06/29/17 00:05 Globulin 2.9 gm/dL 06/29/17 00:05 Albumin/Globulin Ratio 1.3 (1.0-1.8) 06/29/17 00:05 TSH 1.93 uIU/ml (0.34-5.60) 06/29/17 00:05 Urine Source RANDOM 06/30/17 01:10 Urine Color YELLOW 06/30/17 01:10 Urine Clarity CLEAR (CLEAR) 06/30/17 01:10 Urine pH 7.0 (4.6 - 8.0) 06/30/17 01:10 Ur Specific [place] 1.010 (1.005-1.030) 06/30/17 01:10 Urine Protein NEGATIVE mg/dL (NEGATIVE) 06/30/17 01:10 Urine Glucose (UA) NEGATIVE mg/dL (NEGATIVE) 06/30/17 01:10 Urine Ketones NEGATIVE mg/dL (NEGATIVE) 06/30/17 01:10 Urine Blood NEGATIVE (NEGATIVE) 06/30/17 01:10 Urine Nitrate NEGATIVE (NEGATIVE) 06/30/17 01:10 Urine Bilirubin NEGATIVE (NEGATIVE) 06/30/17 01:10 Urine Urobilinogen 0.2 E.U./dL (0.2 - 1.0) 06/30/17 01:10 Ur Leukocyte Esterase TRACE (NEGATIVE) H 06/30/17 01:10 Urine RBC 0-2 /hpf (0-5) 06/30/17 01:10 Urine WBC 2-5 /hpf (0-5) 06/30/17 01:10 Ur Epithelial Cells FEW /lpf (FEW) 06/30/17 01:10 Urine Bacteria FEW /hpf (NONE SEEN) 06/30/17 01:10 - Physical Exam Vitals and I&O: Vital Signs Temp 98.1 F 07/01/17 08:30 Pulse 108 07/01/17 08:30 Resp 19 07/01/17 08:30 BP 145/95 07/01/17 08:30 Pulse Ox 98 07/01/17 08:30 Intake & Output 06/30/17 07/01/17 07/01/17 18:59 06:59 18:59 Intake Total 650 200 50 Balance 650 200 50 Weight (lbs) 178 lb 178 lb Intake: Intake, IV Amount 50 50 cefTRIAXone 1 gm In 50 50 Sodium Chloride 0.9% 50 ml @ 100 mls/hr IV Q24HR [facility] Rx#:[id number] Oral 600 200 Other: # Voids 3 1 # Bowel Movements 1 Weight Source Bedscale Bedscale Active Medications: Current Medications Acetaminophen (Tylenol Extra Strength) 500 mg PO Q6H PRN PRN Reason: MOD PAIN Stop: 08/29/17 08:21 Acetaminophen (Tylenol) 650 mg PO Q4H PRN PRN Reason: Pain Or Fever above 101 Stop: 08/29/17 08:23 Albuterol Sulfate (Albuterol 2.5mg/3ml Neb Ud) 2.5 mg HHN Q2HRT PRN PRN Reason: Shortness of Breath or Wheeze Stop: 08/29/17 08:23 Bisacodyl (Dulcolax 10 Mg Supp) 10 mg RC DAILY PRN PRN Reason: Constipation Stop: 08/29/17 08:21 Citalopram Hydrobromide (Celexa) 40 mg PO DAILY [facility] PRN Reason: Protocol Stop: 08/29/17 08:59 Last Admin: 07/01/17 09:47 Dose: 40 mg Cyanocobalamin (Vitamin B12) 1,000 mcg PO DAILY [facility] Stop: 08/29/17 08:59 Last Admin: 07/01/17 09:47 Dose: 1,000 mcg Divalproex Sodium (Depakote Dr) 250 mg PO BID [facility]Y PRN Reason: Protocol Stop: 08/29/17 08:59 Last Admin: 07/01/17 09:47 Dose: 250 mg Haloperidol Lactate (Haldol Concentrate 10mg/5ml Susp) 2 mg PO Q12HR [facility] PRN Reason: Protocol Stop: 08/29/17 08:59 Last Admin: 07/01/17 09:49 Dose: 2 mg Heparin Sodium (Porcine) (Heparin) 5,000 units SUBQ Q12H [facility] Stop: 08/29/17 20:59 Last Admin: 07/01/17 09:53 Dose: 5,000 units Ceftriaxone Sodium 1 gm/ (Sodium Chloride) 50 mls @ 100 mls/hr IV Q24HR [facility] Stop: 08/29/17 08:29 Last Infusion: 07/01/17 09:53 Dose: Infused Dextrose/Sodium Chloride (D5-0.45ns) 1,000 mls @ 80 mls/hr IV .[id number] [facility] Stop: 08/29/17 08:29 Last Admin: 06/30/17 21:00 Dose: Not Given Ipratropium [place] (Atrovent Neb 0.5mg/2.5ml) 0.5 mg IH Q2HRT PRN PRN Reason: Shortness of Breath or Wheeze Stop: 08/29/17 08:23 Lactobacillus Rhamnosus (Culturelle 15b) 1 each PO DAILY [facility] Stop: 08/31/17 08:59 Lorazepam (Ativan) 0.5 mg IVP Q4HR PRN; Protocol PRN Reason: Agitation Stop: 08/29/17 11:43 Last Admin: 07/01/17 02:51 Dose: 0.5 mg Miscellaneous (Vte Chemical Prophylaxis Screen/ Admission) 1 ea [facility] PRN PRN PRN Reason: PROTOCOL Stop: 08/29/17 09:11 Miscellaneous (Probiotic Screen) 1 ea [facility] PRN PRN PRN Reason: PROTOCOL Stop: 08/30/17 09:29 Ondansetron HCl (Zofran) 4 mg IV Q8H PRN PRN Reason: Nausea / Vomiting Stop: 08/29/17 08:23 Quetiapine Fumarate (Seroquel) 400 mg PO HS GEOFFREY PRN Reason: Protocol Stop: 08/29/17 20:59 Last Admin: 06/30/17 21:42 Dose: 400 mg Quetiapine Fumarate (Seroquel Xr) 200 mg PO BID GEOFFREY PRN Reason: Protocol Stop: 08/29/17 08:59 Last Admin: 07/01/17 09:49 Dose: 200 mg Sodium Phosphate (Fleet Enema) 135 ml RC DAILY PRN PRN Reason: Constipation Stop: 08/29/17 08:21 Tramadol HCl (Ultram) 50 mg PO Q6H PRN PRN Reason: Severe pain Stop: 08/29/17 08:21 Vitamin D (Vitamin D3) 2,000 iu PO DAILY [facility] Stop: 08/29/17 08:59 Last Admin: 07/01/17 09:47 Dose: 2,000 iu HEENT: NC/AT, PERRLA Neck: Supple Lungs: CTAB Cardiovascular: RRR, Normal S1, Normal S2, without murmur Abdomen: soft, non-tender, non-distended, positive bowel sound Neurological: no change Internal Medicine Assmt/Plan - Assessment Assessment: acute uti altered mental status oa schizophrenia dementia - Plan Plan: continue ivantibiotic cbc/bmp in am fall precautions psych follow up continue current plan of care
[2017-07-01] MEDS: D5-0.45NS 1,000 ML IV SCH (14:31)
[2017-07-02] MEDS: Vitamin D3 2,000 IU SGL PO SCH (09:42)
[2017-07-02] MEDS: Lactobacillus Rhamnosus GG 15 Billion CFU CAP.SPRINK PO SCH (09:42)
[2017-07-02] MEDS: Haldol Oral Sol.(concentrate) 10 mg/5 mL Udc PO SCH ×2 (09:44→20:55)
[2017-07-02] MEDS: cefTRIAXone 1 GM in Sodium Chloride 0.9% 50 ML IV SCH (09:44)
[2017-07-02 11:09] LABS: % BASOPHILS 1.1 % (0.0-2.0); % EOSINOPHILS 4.5 % (0.0-5.0); % LYMPHOCYTES 33.3 % (20.0-50.0); % NEUTROPHILS 49.1 % (40.0-80.0); EOSINOPHILE ABSOLUTE 0.2 Th/cmm (0.1-0.4); HEMATOCRIT 35.3 % (41.0-60); HEMOGLOBIN 11.9 gm/dL (12-16); LYMPHOCYTE ABSOLUTE 1.4 Th/cmm (1.5-3.0); MEAN CELL VOLUME 92.9 fl (81-100); MEAN CORPUSCULAR HEMOGLOBIN 31.3 pg (27.0-31.0); MEAN CORPUSCULAR HGB CONC 33.7 pg (28.0-36.0); MEAN PLATELET VOLUME 7.7 fl; MONOCYTE ABSOLUTE 0.5 Th/cmm (0.3-1.0); NEUTROPHILE ABSOLUTE 2.2 Th/cmm (1.8-8.0); PLATELET COUNT 256 Th/cmm (150-400); RED CELL DISTRIBUTION WIDTH 12.8 % (11.5-20.0); WHITE BLOOD COUNT 4.3 Th/cmm (4.8-10.8)
[2017-07-02 11:20] LABS: ANION GAP 10.6 (7.0-16.0); BUN - UREA NITROGEN 14 mg/dL (7-25); CARBON DIOXIDE 26.2 mEq/L (21.0-31.0); CHLORIDE 106 mEq/L (98-107); CREATININE - SERUM 0.6 mg/dL (0.6-1.2); GFR AFRICAN-AMERICAN > 60.0 ml/min (>90); GFR NON AFRICAN-AMERICAN > 60.0 ml/min; GLUCOSE 105 mg/dL (70-105); POTASSIUM SERUM 3.8 mEq/L (3.5-5.1); SODIUM SERUM 139 mEq/L (136-145)
--- NOTE | 2017-07-02 15:03 | Internal Medicine Prog Note ---
Internal Medicine Subjective - Subjective Service Date: 07/02/17 Patient is:: awake, in bed, confused Per staff patient has:: tolerating meds Internal Medicine Objective - Results Result Diagrams: 07/02/17 10:50 07/02/17 10:50 Recent Labs: Laboratory Last Values WBC 4.3 Th/cmm (4.8-10.8) L 07/02/17 10:50 RBC 3.80 Mil/cmm (3.80-5.20) 07/02/17 10:50 Hgb 11.9 gm/dL (12-16) L 07/02/17 10:50 Hct 35.3 % (41.0-60) L 07/02/17 10:50 MCV 92.9 fl (81-100) 07/02/17 10:50 MCH 31.3 pg (27.0-31.0) H 07/02/17 10:50 MCHC Differential 33.7 pg (28.0-36.0) 07/02/17 10:50 RDW 12.8 % (11.5-20.0) 07/02/17 10:50 Plt Count 256 Th/cmm (150-400) 07/02/17 10:50 MPV 7.7 fl 07/02/17 10:50 Neutrophils % 49.1 % (40.0-80.0) 07/02/17 10:50 Lymphocytes % 33.3 % (20.0-50.0) 07/02/17 10:50 Monocytes % 12.0 % (2.0-10.0) H 07/02/17 10:50 Eosinophils % 4.5 % (0.0-5.0) 07/02/17 10:50 Basophils % 1.1 % (0.0-2.0) 07/02/17 10:50 Sodium 139 mEq/L (136-145) 07/02/17 10:50 Potassium 3.8 mEq/L (3.5-5.1) 07/02/17 10:50 Chloride 106 mEq/L (98-107) 07/02/17 10:50 Carbon Dioxide 26.2 mEq/L (21.0-31.0) 07/02/17 10:50 Anion Gap 10.6 (7.0-16.0) 07/02/17 10:50 BUN 14 mg/dL (7-25) 07/02/17 10:50 Creatinine 0.6 mg/dL (0.6-1.2) 07/02/17 10:50 Est GFR ( Amer) > 60.0 ml/min (>90) 07/02/17 10:50 Est GFR (Non-Af Amer) > 60.0 ml/min 07/02/17 10:50 BUN/Creatinine Ratio 23.3 07/02/17 10:50 Glucose 105 mg/dL (70-105) 07/02/17 10:50 Calcium 9.0 mg/dL (8.6-10.3) 07/02/17 10:50 Magnesium 2.0 mg/dL (1.9-2.7) 06/30/17 00:05 Total Bilirubin 0.3 mg/dL (0.3-1.0) 06/29/17 00:05 AST 26 U/L (13-39) 06/29/17 00:05 ALT 35 U/L (7-52) 06/29/17 00:05 Alkaline Phosphatase 126 U/L (34-104) H 06/29/17 00:05 Troponin I < 0.01 ng/mL (0.01-0.05) L 06/30/17 00:05 B-Natriuretic Peptide 19.8 pg/mL (5.0-100.0) 06/30/17 00:05 Total Protein 6.8 gm/dL (6.0-8.3) 06/29/17 00:05 Albumin 3.9 gm/dL (3.7-5.3) 06/29/17 00:05 Globulin 2.9 gm/dL 06/29/17 00:05 Albumin/Globulin Ratio 1.3 (1.0-1.8) 06/29/17 00:05 TSH 1.93 uIU/ml (0.34-5.60) 06/29/17 00:05 Urine Source RANDOM 06/30/17 01:10 Urine Color YELLOW 06/30/17 01:10 Urine Clarity CLEAR (CLEAR) 06/30/17 01:10 Urine pH 7.0 (4.6 - 8.0) 06/30/17 01:10 Ur Specific [place] 1.010 (1.005-1.030) 06/30/17 01:10 Urine Protein NEGATIVE mg/dL (NEGATIVE) 06/30/17 01:10 Urine Glucose (UA) NEGATIVE mg/dL (NEGATIVE) 06/30/17 01:10 Urine Ketones NEGATIVE mg/dL (NEGATIVE) 06/30/17 01:10 Urine Blood NEGATIVE (NEGATIVE) 06/30/17 01:10 Urine Nitrate NEGATIVE (NEGATIVE) 06/30/17 01:10 Urine Bilirubin NEGATIVE (NEGATIVE) 06/30/17 01:10 Urine Urobilinogen 0.2 E.U./dL (0.2 - 1.0) 06/30/17 01:10 Ur Leukocyte Esterase TRACE (NEGATIVE) H 06/30/17 01:10 Urine RBC 0-2 /hpf (0-5) 06/30/17 01:10 Urine WBC 2-5 /hpf (0-5) 06/30/17 01:10 Ur Epithelial Cells FEW /lpf (FEW) 06/30/17 01:10 Urine Bacteria FEW /hpf (NONE SEEN) 06/30/17 01:10 RPR NONREACTIVE (NONREACTIVE) 06/30/17 00:05 - Physical Exam Vitals and I&O: Vital Signs Temp 98.3 F 07/02/17 04:00 Pulse 71 07/02/17 10:51 Resp 20 07/02/17 10:51 BP 125/75 07/02/17 04:00 Pulse Ox 96 07/02/17 10:51 Intake & Output 07/01/17 07/02/17 07/02/17 18:59 06:59 18:59 Intake Total 1070 200 Output Total 0 Balance 1070 200 Weight (lbs) 176 lb 176 lb Intake: Intake, IV Amount 50 cefTRIAXone 1 gm In 50 Sodium Chloride 0.9% 50 ml @ 100 mls/hr IV Q24HR [facility] Rx#:[id number] Oral 1020 200 Output: Urine/Stool Mix 0 Other: # Voids 4 1 Weight Source Bedscale Bedscale Active Medications: Current Medications Acetaminophen (Tylenol Extra Strength) 500 mg PO Q6H PRN PRN Reason: MOD PAIN Stop: 08/29/17 08:21 Acetaminophen (Tylenol) 650 mg PO Q4H PRN PRN Reason: Pain Or Fever above 101 Stop: 08/29/17 08:23 Albuterol Sulfate (Albuterol 2.5mg/3ml Neb Ud) 2.5 mg HHN Q2HRT PRN PRN Reason: Shortness of Breath or Wheeze Stop: 08/29/17 08:23 Bisacodyl (Dulcolax 10 Mg Supp) 10 mg RC DAILY PRN PRN Reason: Constipation Stop: 08/29/17 08:21 Citalopram Hydrobromide (Celexa) 40 mg PO DAILY [facility] PRN Reason: Protocol Stop: 08/29/17 08:59 Last Admin: 07/02/17 09:42 Dose: 40 mg Cyanocobalamin (Vitamin B12) 1,000 mcg PO DAILY [facility] Stop: 08/29/17 08:59 Last Admin: 07/02/17 09:43 Dose: 1,000 mcg Divalproex Sodium (Depakote Dr) 250 mg PO BID [facility] PRN Reason: Protocol Stop: 08/29/17 08:59 Last Admin: 07/02/17 09:43 Dose: 250 mg Haloperidol Lactate (Haldol Concentrate 10mg/5ml Susp) 2 mg PO Q12HR [facility] PRN Reason: Protocol Stop: 08/29/17 08:59 Last Admin: 07/02/17 09:44 Dose: 2 mg Heparin Sodium (Porcine) (Heparin) 5,000 units SUBQ Q12H [facility] Stop: 08/29/17 20:59 Last Admin: 07/02/17 09:43 Dose: 5,000 units Ceftriaxone Sodium 1 gm/ (Sodium Chloride) 50 mls @ 100 mls/hr IV Q24HR [facility] Stop: 08/29/17 08:29 Last Admin: 07/02/17 09:44 Dose: 100 mls/hr Dextrose/Sodium Chloride (D5-0.45ns) 1,000 mls @ 80 mls/hr IV .[id number] [facility] Stop: 08/29/17 08:29 Last Admin: 07/01/17 14:31 Dose: 80 mls/hr Ipratropium [place] (Atrovent Neb 0.5mg/2.5ml) 0.5 mg IH Q2HRT PRN PRN Reason: Shortness of Breath or Wheeze Stop: 08/29/17 08:23 Lactobacillus Rhamnosus (Culturelle 15b) 1 each PO DAILY [facility] Stop: 08/31/17 08:59 Last Admin: 07/02/17 09:42 Dose: 1 each Lorazepam (Ativan) 0.5 mg IVP Q4HR PRN; Protocol PRN Reason: Agitation Stop: 08/29/17 11:43 Last Admin: 07/01/17 15:49 Dose: 0.5 mg Miscellaneous (Vte Chemical Prophylaxis Screen/ Admission) 1 ea PRN PRN PRN Reason: PROTOCOL Stop: 08/29/17 09:11 Miscellaneous (Probiotic Screen) 1 ea PRN PRN PRN Reason: PROTOCOL Stop: 08/30/17 09:29 Ondansetron HCl (Zofran) 4 mg IV Q8H PRN PRN Reason: Nausea / Vomiting Stop: 08/29/17 08:23 Quetiapine Fumarate (Seroquel) 400 mg PO HS [facility] PRN Reason: Protocol Stop: 08/29/17 20:59 Last Admin: 07/01/17 20:52 Dose: 400 mg Quetiapine Fumarate (Seroquel Xr) 200 mg PO BID [facility] PRN Reason: Protocol Stop: 08/29/17 08:59 Last Admin: 07/02/17 09:44 Dose: 200 mg Sodium Phosphate (Fleet Enema) 135 ml RC DAILY PRN PRN Reason: Constipation Stop: 08/29/17 08:21 Tramadol HCl (Ultram) 50 mg PO Q6H PRN PRN Reason: Severe pain Stop: 08/29/17 08:21 Vitamin D (Vitamin D3) 2,000 iu PO DAILY [facility] Stop: 08/29/17 08:59 Last Admin: 07/02/17 09:42 Dose: 2,000 iu HEENT: NC/AT, PERRLA Neck: Supple Lungs: CTAB Cardiovascular: RRR, Normal S1, Normal S2, without murmur Abdomen: soft, non-tender, non-distended, positive bowel sound Neurological: no change Internal Medicine Assmt/Plan - Assessment Assessment: acute uti altered mental status oa schizophrenia dementia - Plan Plan: continue ivantibiotic cbc/bmp in am fall precautions psych follow up continue current plan of care
[2017-07-03] MEDS: D5-0.45NS 1,000 ML IV SCH ×3 (04:54→18:35)
[2017-07-03 06:50] LABS: % BASOPHILS 0.9 % (0.0-2.0); % EOSINOPHILS 5.5 % (0.0-5.0); % LYMPHOCYTES 38.4 % (20.0-50.0); % MONOCYTES 12.1 % (2.0-10.0); % NEUTROPHILS 43.1 % (40.0-80.0); EOSINOPHILE ABSOLUTE 0.3 Th/cmm (0.1-0.4); HEMATOCRIT 33.8 % (41.0-60); HEMOGLOBIN 11.3 gm/dL (12-16); LYMPHOCYTE ABSOLUTE 1.9 Th/cmm (1.5-3.0); MEAN CELL VOLUME 93.3 fl (81-100); MEAN CORPUSCULAR HEMOGLOBIN 31.2 pg (27.0-31.0); MEAN CORPUSCULAR HGB CONC 33.4 pg (28.0-36.0); MEAN PLATELET VOLUME 7.8 fl; MONOCYTE ABSOLUTE 0.6 Th/cmm (0.3-1.0); NEUTROPHILE ABSOLUTE 2.1 Th/cmm (1.8-8.0); PLATELET COUNT 263 Th/cmm (150-400); RED BLOOD COUNT 3.63 Mil/cmm (3.80-5.20); RED CELL DISTRIBUTION WIDTH 12.9 % (11.5-20.0); WHITE BLOOD COUNT 4.9 Th/cmm (4.8-10.8)
[2017-07-03 07:19] LABS: ANION GAP 9.8 (7.0-16.0); BUN - UREA NITROGEN 17 mg/dL (7-25); CALCIUM SERUM 8.8 mg/dL (8.6-10.3); CHLORIDE 109 mEq/L (98-107); CREATININE - SERUM 0.6 mg/dL (0.6-1.2); GFR AFRICAN-AMERICAN > 60.0 ml/min (>90); GFR NON AFRICAN-AMERICAN > 60.0 ml/min; GLUCOSE 107 mg/dL (70-105); POTASSIUM SERUM 3.8 mEq/L (3.5-5.1); SODIUM SERUM 139 mEq/L (136-145)
[2017-07-03] MEDS: cefTRIAXone 1 GM in Sodium Chloride 0.9% 50 ML IV SCH (08:12)
[2017-07-03] MEDS: Haldol Oral Sol.(concentrate) 10 mg/5 mL Udc PO SCH (08:12)
[2017-07-03] MEDS: Lactobacillus Rhamnosus GG 15 Billion CFU CAP.SPRINK PO SCH (08:13)
[2017-07-03] MEDS: Vitamin D3 2,000 IU SGL PO SCH (08:13)
--- NOTE | 2017-07-03 15:18 | Internal Medicine Prog Note ---
Internal Medicine Subjective - Subjective Service Date: 07/03/17 Patient is:: awake, in bed, confused Per staff patient has:: tolerating meds Internal Medicine Objective - Results Result Diagrams: 07/03/17 05:50 07/03/17 05:50 Recent Labs: Laboratory Last Values WBC 4.9 Th/cmm (4.8-10.8) 07/03/17 05:50 RBC 3.63 Mil/cmm (3.80-5.20) L 07/03/17 05:50 Hgb 11.3 gm/dL (12-16) L 07/03/17 05:50 Hct 33.8 % (41.0-60) L 07/03/17 05:50 MCV 93.3 fl (81-100) 07/03/17 05:50 MCH 31.2 pg (27.0-31.0) H 07/03/17 05:50 MCHC Differential 33.4 pg (28.0-36.0) 07/03/17 05:50 RDW 12.9 % (11.5-20.0) 07/03/17 05:50 Plt Count 263 Th/cmm (150-400) 07/03/17 05:50 MPV 7.8 fl 07/03/17 05:50 Neutrophils % 43.1 % (40.0-80.0) 07/03/17 05:50 Lymphocytes % 38.4 % (20.0-50.0) 07/03/17 05:50 Monocytes % 12.1 % (2.0-10.0) H 07/03/17 05:50 Eosinophils % 5.5 % (0.0-5.0) H 07/03/17 05:50 Basophils % 0.9 % (0.0-2.0) 07/03/17 05:50 Sodium 139 mEq/L (136-145) 07/03/17 05:50 Potassium 3.8 mEq/L (3.5-5.1) 07/03/17 05:50 Chloride 109 mEq/L (98-107) H 07/03/17 05:50 Carbon Dioxide 24.0 mEq/L (21.0-31.0) 07/03/17 05:50 Anion Gap 9.8 (7.0-16.0) 07/03/17 05:50 BUN 17 mg/dL (7-25) 07/03/17 05:50 Creatinine 0.6 mg/dL (0.6-1.2) 07/03/17 05:50 Est GFR ( Amer) > 60.0 ml/min (>90) 07/03/17 05:50 Est GFR (Non-Af Amer) > 60.0 ml/min 07/03/17 05:50 BUN/Creatinine Ratio 28.3 07/03/17 05:50 Glucose 107 mg/dL (70-105) H 07/03/17 05:50 Calcium 8.8 mg/dL (8.6-10.3) 07/03/17 05:50 Magnesium 2.0 mg/dL (1.9-2.7) 06/30/17 00:05 Total Bilirubin 0.3 mg/dL (0.3-1.0) 06/29/17 00:05 AST 26 U/L (13-39) 06/29/17 00:05 ALT 35 U/L (7-52) 06/29/17 00:05 Alkaline Phosphatase 126 U/L (34-104) H 06/29/17 00:05 Troponin I < 0.01 ng/mL (0.01-0.05) L 06/30/17 00:05 B-Natriuretic Peptide 19.8 pg/mL (5.0-100.0) 06/30/17 00:05 Total Protein 6.8 gm/dL (6.0-8.3) 06/29/17 00:05 Albumin 3.9 gm/dL (3.7-5.3) 06/29/17 00:05 Globulin 2.9 gm/dL 06/29/17 00:05 Albumin/Globulin Ratio 1.3 (1.0-1.8) 06/29/17 00:05 TSH 1.93 uIU/ml (0.34-5.60) 06/29/17 00:05 Urine Source RANDOM 06/30/17 01:10 Urine Color YELLOW 06/30/17 01:10 Urine Clarity CLEAR (CLEAR) 06/30/17 01:10 Urine pH 7.0 (4.6 - 8.0) 06/30/17 01:10 Ur Specific [place] 1.010 (1.005-1.030) 06/30/17 01:10 Urine Protein NEGATIVE mg/dL (NEGATIVE) 06/30/17 01:10 Urine Glucose (UA) NEGATIVE mg/dL (NEGATIVE) 06/30/17 01:10 Urine Ketones NEGATIVE mg/dL (NEGATIVE) 06/30/17 01:10 Urine Blood NEGATIVE (NEGATIVE) 06/30/17 01:10 Urine Nitrate NEGATIVE (NEGATIVE) 06/30/17 01:10 Urine Bilirubin NEGATIVE (NEGATIVE) 06/30/17 01:10 Urine Urobilinogen 0.2 E.U./dL (0.2 - 1.0) 06/30/17 01:10 Ur Leukocyte Esterase TRACE (NEGATIVE) H 06/30/17 01:10 Urine RBC 0-2 /hpf (0-5) 06/30/17 01:10 Urine WBC 2-5 /hpf (0-5) 06/30/17 01:10 Ur Epithelial Cells FEW /lpf (FEW) 06/30/17 01:10 Urine Bacteria FEW /hpf (NONE SEEN) 06/30/17 01:10 RPR NONREACTIVE (NONREACTIVE) 06/30/17 00:05 - Physical Exam Vitals and I&O: Vital Signs Temp 97.0 F 07/03/17 08:00 Pulse 66 07/03/17 08:00 Resp 18 07/03/17 08:00 BP 123/76 07/03/17 08:00 Pulse Ox 96 07/03/17 08:00 Intake & Output 07/02/17 07/03/17 07/03/17 18:59 06:59 18:59 Intake Total 1000 8 Balance 1000 8 Weight (lbs) 176 lb 8 oz 175 lb Intake: Intake, IV Amount 50 8 D5-0.45NS 1,000 ml @ 80 8 mls/hr IV .[id number] [facility] Rx #:[id number] cefTRIAXone 1 gm In 50 Sodium Chloride 0.9% 50 ml @ 100 mls/hr IV Q24HR [facility] Rx#:[id number] Oral 950 Other: # Voids 4 1 # Bowel Movements 0 Weight Source Bedscale Bedscale Active Medications: Current Medications Acetaminophen (Tylenol Extra Strength) 500 mg PO Q6H PRN PRN Reason: MOD PAIN Stop: 08/29/17 08:21 Acetaminophen (Tylenol) 650 mg PO Q4H PRN PRN Reason: Pain Or Fever above 101 Stop: 08/29/17 08:23 Albuterol Sulfate (Albuterol 2.5mg/3ml Neb Ud) 2.5 mg HHN Q2HRT PRN PRN Reason: Shortness of Breath or Wheeze Stop: 08/29/17 08:23 Bisacodyl (Dulcolax 10 Mg Supp) 10 mg RC DAILY PRN PRN Reason: Constipation Stop: 08/29/17 08:21 Citalopram Hydrobromide (Celexa) 40 mg PO DAILY [facility] PRN Reason: Protocol Stop: 08/29/17 08:59 Last Admin: 07/03/17 08:13 Dose: 40 mg Cyanocobalamin (Vitamin B12) 1,000 mcg PO DAILY [facility] Stop: 08/29/17 08:59 Last Admin: 07/03/17 08:12 Dose: 1,000 mcg Divalproex Sodium (Depakote Dr) 250 mg PO BID [facility] PRN Reason: Protocol Stop: 08/29/17 08:59 Last Admin: 07/03/17 08:12 Dose: 250 mg Haloperidol Lactate (Haldol Concentrate 10mg/5ml Susp) 2 mg PO Q12HR [facility] PRN Reason: Protocol Stop: 08/29/17 08:59 Last Admin: 07/03/17 08:12 Dose: 2 mg Heparin Sodium (Porcine) (Heparin) 5,000 units SUBQ Q12H [facility] Stop: 08/29/17 20:59 Last Admin: 07/03/17 08:13 Dose: 5,000 units Ceftriaxone Sodium 1 gm/ (Sodium Chloride) 50 mls @ 100 mls/hr IV Q24HR [facility] Stop: 08/29/17 08:29 Last Admin: 07/03/17 08:12 Dose: 100 mls/hr Dextrose/Sodium Chloride (D5-0.45ns) 1,000 mls @ 80 mls/hr IV .[id number] [facility] Stop: 08/29/17 08:29 Last Admin: 07/03/17 05:00 Dose: 80 mls/hr Ipratropium [place] (Atrovent Neb 0.5mg/2.5ml) 0.5 mg IH Q2HRT PRN PRN Reason: Shortness of Breath or Wheeze Stop: 08/29/17 08:23 Lactobacillus Rhamnosus (Culturelle 15b) 1 each PO DAILY [facility] Stop: 08/31/17 08:59 Last Admin: 07/03/17 08:13 Dose: 1 each Lorazepam (Ativan) 0.5 mg IVP Q4HR PRN; Protocol PRN Reason: Agitation Stop: 08/29/17 11:43 Last Admin: 07/01/17 15:49 Dose: 0.5 mg Miscellaneous (Vte Chemical Prophylaxis Screen/ Admission) 1 ea PRN PRN PRN Reason: PROTOCOL Stop: 08/29/17 09:11 Miscellaneous (Probiotic Screen) 1 ea MC PRN PRN PRN Reason: PROTOCOL Stop: 08/30/17 09:29 Ondansetron HCl (Zofran) 4 mg IV Q8H PRN PRN Reason: Nausea / Vomiting Stop: 08/29/17 08:23 Quetiapine Fumarate (Seroquel) 400 mg PO HS [facility] PRN Reason: Protocol Stop: 08/29/17 20:59 Last Admin: 07/02/17 20:55 Dose: 400 mg Quetiapine Fumarate (Seroquel Xr) 200 mg PO BID [facility] PRN Reason: Protocol Stop: 08/29/17 08:59 Last Admin: 07/03/17 08:12 Dose: 200 mg Sodium Phosphate (Fleet Enema) 135 ml RC DAILY PRN PRN Reason: Constipation Stop: 08/29/17 08:21 Tramadol HCl (Ultram) 50 mg PO Q6H PRN PRN Reason: Severe pain Stop: 08/29/17 08:21 Vitamin D (Vitamin D3) 2,000 iu PO DAILY [facility] Stop: 08/29/17 08:59 Last Admin: 07/03/17 08:13 Dose: 2,000 iu HEENT: NC/AT, PERRLA Neck: Supple Lungs: CTAB Cardiovascular: RRR, Normal S1, Normal S2, without murmur Abdomen: soft, non-tender, non-distended, positive bowel sound Neurological: no change Internal Medicine Assmt/Plan - Assessment Assessment: acute uti altered mental status oa schizophrenia dementia - Plan Plan: continue ivantibiotic cbc/bmp in am fall precautions psych follow up continue current plan of care Nutritional Asmnt/Malnutr-PDOC - Dietary Evaluation Malnutrition Findings (Please click <Entered> for more info): Nutritional Asmnt/Malnutrition Start: 07/03/17 11: 14 Text: Status: Complete Freq: Document 07/03/17 11:14 STACY (Rec: 07/03/17 11:18 [email or web address]- [id number]) Nutritional Asmnt/Malnutrition Patient General Information Diagnosis UTI, altered mental status Pertinent Medical Hx/Surgical Hx dementia, opioid dependence, hip disloaction, osteoarthritis, schizophrenia Subjective Information Pt asleep with sitter at bedside did not wake pt Current Diet Order/ Nutrition Support regular Pertinent Medications bisacodyl, culturelle, zofran, vit D3 Pertinent Labs 07/03: Na 139, K 3.8, Cl 109, CO2 24, BUN 17, Ca 0.6, Ca 8.8 , glucose 107 Nutritional Hx/Data Height 5 ft 6 in Height (Calculated Centimeters) 167.6 Current Weight (lbs) 175 lb Weight (Calculated Kilograms) 79.4 Weight (Calculated Grams) 23101.7 Body Mass Index (BMI) 28.2 Weight Status Overweight GI Symptoms GI Symptoms None Last BM 06/30 Cultural/Ethnic/Hinduism Belief unknown Usual diet at home regular Skin Integrity/Comment: imani score 18 Current %PO Good (75-100%) Estimated Nutritional Goals BEE in Kcals: Using Current wt Calories/Kcals/Kg 25-30kcals/kg Kcals Calculated 1974-0kcals/day Protein: Using Current wt Protein g/kg/kg Protein Calculated 79g/day Fluid: ml per MD Nutritional Problem 1. Problem Problem No nutrition diagnosis at this time Intervention/Recommendation Comments Recommend continuing Regular diet at this time Expected Outcomes/Goals Expected Outcomes/Goals PO intake >75% of meals
[2017-07-03] MEDS ORDERED: Haloperidol Lactate 5 mg/mL 1mL Vial IM ONE (15:24)
[2017-07-04] MEDS: Haldol Oral Sol.(concentrate) 10 mg/5 mL Udc PO SCH ×4 (00:27→23:34)
[2017-07-04] MEDS: D5-0.45NS 1,000 ML IV SCH (06:58)
[2017-07-04 07:19] LABS: % BASOPHILS 0.8 % (0.0-2.0); % EOSINOPHILS 5.2 % (0.0-5.0); % LYMPHOCYTES 37.5 % (20.0-50.0); % MONOCYTES 11.8 % (2.0-10.0); % NEUTROPHILS 44.7 % (40.0-80.0); EOSINOPHILE ABSOLUTE 0.3 Th/cmm (0.1-0.4); HEMATOCRIT 36.5 % (41.0-60); HEMOGLOBIN 12.4 gm/dL (12-16); LYMPHOCYTE ABSOLUTE 2.1 Th/cmm (1.5-3.0); MEAN CELL VOLUME 92.9 fl (81-100); MEAN CORPUSCULAR HEMOGLOBIN 31.5 pg (27.0-31.0); MEAN CORPUSCULAR HGB CONC 33.9 pg (28.0-36.0); MEAN PLATELET VOLUME 8.3 fl; MONOCYTE ABSOLUTE 0.7 Th/cmm (0.3-1.0); NEUTROPHILE ABSOLUTE 2.6 Th/cmm (1.8-8.0); PLATELET COUNT 258 Th/cmm (150-400); RED BLOOD COUNT 3.93 Mil/cmm (3.80-5.20); RED CELL DISTRIBUTION WIDTH 12.6 % (11.5-20.0); WHITE BLOOD COUNT 5.7 Th/cmm (4.8-10.8)
[2017-07-04 07:52] LABS: ANION GAP 10.8 (7.0-16.0); BUN - UREA NITROGEN 16 mg/dL (7-25); CALCIUM SERUM 9.1 mg/dL (8.6-10.3); CARBON DIOXIDE 24.1 mEq/L (21.0-31.0); CHLORIDE 106 mEq/L (98-107); CREATININE - SERUM 0.6 mg/dL (0.6-1.2); GFR AFRICAN-AMERICAN > 60.0 ml/min (>90); GFR NON AFRICAN-AMERICAN > 60.0 ml/min; GLUCOSE 90 mg/dL (70-105); POTASSIUM SERUM 3.9 mEq/L (3.5-5.1); SODIUM SERUM 137 mEq/L (136-145)
[2017-07-04] MEDS: Vitamin D3 2,000 IU SGL PO SCH (09:02)
[2017-07-04] MEDS: Lactobacillus Rhamnosus GG 15 Billion CFU CAP.SPRINK PO SCH (09:03)
[2017-07-04] MEDS: cefTRIAXone 1 GM in Sodium Chloride 0.9% 50 ML IV SCH (09:38)
--- NOTE | 2017-07-04 14:59 | Internal Medicine Prog Note ---
Internal Medicine Subjective - Subjective Service Date: 07/04/17 Patient is:: awake, ambulating, agitated, confused Per staff patient has:: tolerating meds Internal Medicine Objective - Results Result Diagrams: 07/04/17 06:20 07/04/17 06:20 Recent Labs: Laboratory Last Values WBC 5.7 Th/cmm (4.8-10.8) 07/04/17 06:20 RBC 3.93 Mil/cmm (3.80-5.20) 07/04/17 06:20 Hgb 12.4 gm/dL (12-16) 07/04/17 06:20 Hct 36.5 % (41.0-60) L 07/04/17 06:20 MCV 92.9 fl (81-100) 07/04/17 06:20 MCH 31.5 pg (27.0-31.0) H 07/04/17 06:20 MCHC Differential 33.9 pg (28.0-36.0) 07/04/17 06:20 RDW 12.6 % (11.5-20.0) 07/04/17 06:20 Plt Count 258 Th/cmm (150-400) 07/04/17 06:20 MPV 8.3 fl 07/04/17 06:20 Neutrophils % 44.7 % (40.0-80.0) 07/04/17 06:20 Lymphocytes % 37.5 % (20.0-50.0) 07/04/17 06:20 Monocytes % 11.8 % (2.0-10.0) H 07/04/17 06:20 Eosinophils % 5.2 % (0.0-5.0) H 07/04/17 06:20 Basophils % 0.8 % (0.0-2.0) 07/04/17 06:20 Sodium 137 mEq/L (136-145) 07/04/17 06:20 Potassium 3.9 mEq/L (3.5-5.1) 07/04/17 06:20 Chloride 106 mEq/L (98-107) 07/04/17 06:20 Carbon Dioxide 24.1 mEq/L (21.0-31.0) 07/04/17 06:20 Anion Gap 10.8 (7.0-16.0) 07/04/17 06:20 BUN 16 mg/dL (7-25) 07/04/17 06:20 Creatinine 0.6 mg/dL (0.6-1.2) 07/04/17 06:20 Est GFR ( Amer) > 60.0 ml/min (>90) 07/04/17 06:20 Est GFR (Non-Af Amer) > 60.0 ml/min 07/04/17 06:20 BUN/Creatinine Ratio 26.7 07/04/17 06:20 Glucose 90 mg/dL (70-105) 07/04/17 06:20 Calcium 9.1 mg/dL (8.6-10.3) 07/04/17 06:20 Magnesium 2.0 mg/dL (1.9-2.7) 06/30/17 00:05 Total Bilirubin 0.3 mg/dL (0.3-1.0) 06/29/17 00:05 AST 26 U/L (13-39) 06/29/17 00:05 ALT 35 U/L (7-52) 06/29/17 00:05 Alkaline Phosphatase 126 U/L (34-104) H 06/29/17 00:05 Troponin I < 0.01 ng/mL (0.01-0.05) L 06/30/17 00:05 B-Natriuretic Peptide 19.8 pg/mL (5.0-100.0) 06/30/17 00:05 Total Protein 6.8 gm/dL (6.0-8.3) 06/29/17 00:05 Albumin 3.9 gm/dL (3.7-5.3) 06/29/17 00:05 Globulin 2.9 gm/dL 06/29/17 00:05 Albumin/Globulin Ratio 1.3 (1.0-1.8) 06/29/17 00:05 TSH 1.93 uIU/ml (0.34-5.60) 06/29/17 00:05 Urine Source RANDOM 06/30/17 01:10 Urine Color YELLOW 06/30/17 01:10 Urine Clarity CLEAR (CLEAR) 06/30/17 01:10 Urine pH 7.0 (4.6 - 8.0) 06/30/17 01:10 Ur Specific [place] 1.010 (1.005-1.030) 06/30/17 01:10 Urine Protein NEGATIVE mg/dL (NEGATIVE) 06/30/17 01:10 Urine Glucose (UA) NEGATIVE mg/dL (NEGATIVE) 06/30/17 01:10 Urine Ketones NEGATIVE mg/dL (NEGATIVE) 06/30/17 01:10 Urine Blood NEGATIVE (NEGATIVE) 06/30/17 01:10 Urine Nitrate NEGATIVE (NEGATIVE) 06/30/17 01:10 Urine Bilirubin NEGATIVE (NEGATIVE) 06/30/17 01:10 Urine Urobilinogen 0.2 E.U./dL (0.2 - 1.0) 06/30/17 01:10 Ur Leukocyte Esterase TRACE (NEGATIVE) H 06/30/17 01:10 Urine RBC 0-2 /hpf (0-5) 06/30/17 01:10 Urine WBC 2-5 /hpf (0-5) 06/30/17 01:10 Ur Epithelial Cells FEW /lpf (FEW) 06/30/17 01:10 Urine Bacteria FEW /hpf (NONE SEEN) 06/30/17 01:10 RPR NONREACTIVE (NONREACTIVE) 06/30/17 00:05 - Physical Exam Vitals and I&O: Vital Signs Temp 97.8 F 07/04/17 00:00 Pulse 71 07/04/17 08:02 Resp 16 07/04/17 08:02 BP 128/64 07/04/17 00:00 Pulse Ox 94 07/04/17 08:02 Intake & Output 07/03/17 07/04/17 07/04/17 18:59 06:59 18:59 Intake Total 2200 1340.667 380 Balance 2200 1340.667 380 Weight (lbs) 175 lb 176 lb 176 lb Intake: Intake, IV Amount 1050 990.667 D5-0.45NS 1,000 ml @ 80 1000 990.667 mls/hr IV .[id number] [facility] Rx #:[id number] cefTRIAXone 1 gm In 50 Sodium Chloride 0.9% 50 ml @ 100 mls/hr IV Q24HR [facility] Rx#:[id number] Oral 1150 350 380 Other: # Voids 4 3 1 # Bowel Movements 0 Weight Source Bedscale Bedscale Estimated Active Medications: Current Medications Acetaminophen (Tylenol Extra Strength) 500 mg PO Q6H PRN PRN Reason: MOD PAIN Stop: 08/29/17 08:21 Acetaminophen (Tylenol) 650 mg PO Q4H PRN PRN Reason: Pain Or Fever above 101 Stop: 08/29/17 08:23 Albuterol Sulfate (Albuterol 2.5mg/3ml Neb Ud) 2.5 mg HHN Q2HRT PRN PRN Reason: Shortness of Breath or Wheeze Stop: 08/29/17 08:23 Bisacodyl (Dulcolax 10 Mg Supp) 10 mg RC DAILY PRN PRN Reason: Constipation Stop: 08/29/17 08:21 Citalopram Hydrobromide (Celexa) 40 mg PO DAILY [facility] PRN Reason: Protocol Stop: 08/29/17 08:59 Last Admin: 07/04/17 09:01 Dose: 40 mg Cyanocobalamin (Vitamin B12) 1,000 mcg PO DAILY [facility] Stop: 08/29/17 08:59 Last Admin: 07/04/17 09:01 Dose: 1,000 mcg Divalproex Sodium (Depakote Dr) 250 mg PO BID [facility] PRN Reason: Protocol Stop: 08/29/17 08:59 Last Admin: 07/04/17 09:01 Dose: 250 mg Haloperidol Lactate (Haldol Concentrate 10mg/5ml Susp) 2 mg PO Q12HR GEOFFREY PRN Reason: Protocol Stop: 08/29/17 08:59 Last Admin: 07/04/17 09:01 Dose: 2 mg Heparin Sodium (Porcine) (Heparin) 5,000 units SUBQ Q12H [facility] Stop: 08/29/17 20:59 Last Admin: 07/04/17 09:37 Dose: 5,000 units Ceftriaxone Sodium 1 gm/ (Sodium Chloride) 50 mls @ 100 mls/hr IV Q24HR [facility] Stop: 08/29/17 08:29 Last Admin: 07/04/17 09:38 Dose: 100 mls/hr Dextrose/Sodium Chloride (D5-0.45ns) 1,000 mls @ 80 mls/hr IV .[id number] [facility] Stop: 08/29/17 08:29 Last Admin: 07/04/17 06:58 Dose: 80 mls/hr Ipratropium [place] (Atrovent Neb 0.5mg/2.5ml) 0.5 mg IH Q2HRT PRN PRN Reason: Shortness of Breath or Wheeze Stop: 08/29/17 08:23 Lactobacillus Rhamnosus (Culturelle 15b) 1 each PO DAILY GEOFFREY Stop: 08/31/17 08:59 Last Admin: 07/04/17 09:03 Dose: 1 each Lorazepam (Ativan) 0.5 mg IVP Q4HR PRN; Protocol PRN Reason: Agitation Stop: 08/29/17 11:43 Last Admin: 07/01/17 15:49 Dose: 0.5 mg Miscellaneous (Vte Chemical Prophylaxis Screen/ Admission) 1 ea [facility] PRN PRN PRN Reason: PROTOCOL Stop: 08/29/17 09:11 Miscellaneous (Probiotic Screen) 1 ea MC PRN PRN PRN Reason: PROTOCOL Stop: 08/30/17 09:29 Ondansetron HCl (Zofran) 4 mg IV Q8H PRN PRN Reason: Nausea / Vomiting Stop: 08/29/17 08:23 Quetiapine Fumarate (Seroquel) 400 mg PO HS GEOFFREY PRN Reason: Protocol Stop: 08/29/17 20:59 Last Admin: 07/03/17 21:55 Dose: 400 mg Quetiapine Fumarate (Seroquel Xr) 200 mg PO BID GEOFFREY PRN Reason: Protocol Stop: 08/29/17 08:59 Last Admin: 07/03/17 16:15 Dose: Not Given Sodium Phosphate (Fleet Enema) 135 ml RC DAILY PRN PRN Reason: Constipation Stop: 08/29/17 08:21 Tramadol HCl (Ultram) 50 mg PO Q6H PRN PRN Reason: Severe pain Stop: 08/29/17 08:21 Vitamin D (Vitamin D3) 2,000 iu PO DAILY GEOFFREY Stop: 08/29/17 08:59 Last Admin: 07/04/17 09:02 Dose: 2,000 iu HEENT: NC/AT, PERRLA Neck: Supple Lungs: CTAB Cardiovascular: RRR, Normal S1, Normal S2, without murmur Abdomen: soft, non-tender, non-distended, positive bowel sound Neurological: no change Internal Medicine Assmt/Plan - Assessment Assessment: acute uti altered mental status oa schizophrenia dementia - Plan Plan: continue ivantibiotic cbc/bmp in am fall precautions psych follow up continue current plan of care Nutritional Asmnt/Malnutr-PDOC - Dietary Evaluation Malnutrition Findings (Please click <Entered> for more info): Nutritional Asmnt/Malnutrition Start: 07/03/17 11: 14 Text: Status: Complete Freq: Document 07/03/17 11:14 PAMELASACHIN (Rec: 07/03/17 11:18 STACY KHAN- [id number]) Nutritional Asmnt/Malnutrition Patient General Information Diagnosis UTI, altered mental status Pertinent Medical Hx/Surgical Hx dementia, opioid dependence, hip disloaction, osteoarthritis, schizophrenia Subjective Information Pt asleep with sitter at bedside did not wake pt Current Diet Order/ Nutrition Support regular Pertinent Medications bisacodyl, culturelle, zofran, vit D3 Pertinent Labs 07/03: Na 139, K 3.8, Cl 109, CO2 24, BUN 17, Ca 0.6, Ca 8.8 , glucose 107 Nutritional Hx/Data Height 5 ft 6 in Height (Calculated Centimeters) 167.6 Current Weight (lbs) 175 lb Weight (Calculated Kilograms) 79.4 Weight (Calculated Grams) 29359.7 Body Mass Index (BMI) 28.2 Weight Status Overweight GI Symptoms GI Symptoms None Last BM 06/30 Cultural/Ethnic/Christian Belief unknown Usual diet at home regular Skin Integrity/Comment: imani score 18 Current %PO Good (75-100%) Estimated Nutritional Goals BEE in Kcals: Using Current wt Calories/Kcals/Kg 25-30kcals/kg Kcals Calculated 1974-2369kcals/day Protein: Using Current wt Protein g/kg/kg Protein Calculated 79g/day Fluid: ml per MD Nutritional Problem 1. Problem Problem No nutrition diagnosis at this time Intervention/Recommendation Comments Recommend continuing Regular diet at this time Expected Outcomes/Goals Expected Outcomes/Goals PO intake >75% of meals
[2017-07-05] MEDS: Haldol Oral Sol.(concentrate) 10 mg/5 mL Udc PO SCH ×3 (03:23→20:52)
[2017-07-05] MEDS: Vitamin D3 2,000 IU SGL PO SCH (08:50)
[2017-07-05] MEDS: Lactobacillus Rhamnosus GG 15 Billion CFU CAP.SPRINK PO SCH (08:52)
[2017-07-05] MEDS: cefTRIAXone 1 GM in Sodium Chloride 0.9% 50 ML IV SCH (11:14)
--- NOTE | 2017-07-05 11:27 | Internal Medicine Prog Note ---
Internal Medicine Subjective - Subjective Patient seen and examined:: with staff, chart reviewed Patient is:: awake, verbal, interactive, ambulating, agitated, confused Per staff patient has:: no adverse event, no episodes of fall, poor appetite, agitated, combative, noncompliant, confused, tolerating meds Internal Medicine Objective - Results Result Diagrams: 07/04/17 06:20 07/04/17 06:20 Recent Labs: Laboratory Last Values WBC 5.7 Th/cmm (4.8-10.8) 07/04/17 06:20 RBC 3.93 Mil/cmm (3.80-5.20) 07/04/17 06:20 Hgb 12.4 gm/dL (12-16) 07/04/17 06:20 Hct 36.5 % (41.0-60) L 07/04/17 06:20 MCV 92.9 fl (81-100) 07/04/17 06:20 MCH 31.5 pg (27.0-31.0) H 07/04/17 06:20 MCHC Differential 33.9 pg (28.0-36.0) 07/04/17 06:20 RDW 12.6 % (11.5-20.0) 07/04/17 06:20 Plt Count 258 Th/cmm (150-400) 07/04/17 06:20 MPV 8.3 fl 07/04/17 06:20 Neutrophils % 44.7 % (40.0-80.0) 07/04/17 06:20 Lymphocytes % 37.5 % (20.0-50.0) 07/04/17 06:20 Monocytes % 11.8 % (2.0-10.0) H 07/04/17 06:20 Eosinophils % 5.2 % (0.0-5.0) H 07/04/17 06:20 Basophils % 0.8 % (0.0-2.0) 07/04/17 06:20 Sodium 137 mEq/L (136-145) 07/04/17 06:20 Potassium 3.9 mEq/L (3.5-5.1) 07/04/17 06:20 Chloride 106 mEq/L (98-107) 07/04/17 06:20 Carbon Dioxide 24.1 mEq/L (21.0-31.0) 07/04/17 06:20 Anion Gap 10.8 (7.0-16.0) 07/04/17 06:20 BUN 16 mg/dL (7-25) 07/04/17 06:20 Creatinine 0.6 mg/dL (0.6-1.2) 07/04/17 06:20 Est GFR ( Amer) > 60.0 ml/min (>90) 07/04/17 06:20 Est GFR (Non-Af Amer) > 60.0 ml/min 07/04/17 06:20 BUN/Creatinine Ratio 26.7 07/04/17 06:20 Glucose 90 mg/dL (70-105) 07/04/17 06:20 Calcium 9.1 mg/dL (8.6-10.3) 07/04/17 06:20 Magnesium 2.0 mg/dL (1.9-2.7) 06/30/17 00:05 Total Bilirubin 0.3 mg/dL (0.3-1.0) 06/29/17 00:05 AST 26 U/L (13-39) 06/29/17 00:05 ALT 35 U/L (7-52) 06/29/17 00:05 Alkaline Phosphatase 126 U/L (34-104) H 06/29/17 00:05 Troponin I < 0.01 ng/mL (0.01-0.05) L 06/30/17 00:05 B-Natriuretic Peptide 19.8 pg/mL (5.0-100.0) 06/30/17 00:05 Total Protein 6.8 gm/dL (6.0-8.3) 06/29/17 00:05 Albumin 3.9 gm/dL (3.7-5.3) 06/29/17 00:05 Globulin 2.9 gm/dL 06/29/17 00:05 Albumin/Globulin Ratio 1.3 (1.0-1.8) 06/29/17 00:05 TSH 1.93 uIU/ml (0.34-5.60) 06/29/17 00:05 Urine Source RANDOM 06/30/17 01:10 Urine Color YELLOW 06/30/17 01:10 Urine Clarity CLEAR (CLEAR) 06/30/17 01:10 Urine pH 7.0 (4.6 - 8.0) 06/30/17 01:10 Ur Specific [place] 1.010 (1.005-1.030) 06/30/17 01:10 Urine Protein NEGATIVE mg/dL (NEGATIVE) 06/30/17 01:10 Urine Glucose (UA) NEGATIVE mg/dL (NEGATIVE) 06/30/17 01:10 Urine Ketones NEGATIVE mg/dL (NEGATIVE) 06/30/17 01:10 Urine Blood NEGATIVE (NEGATIVE) 06/30/17 01:10 Urine Nitrate NEGATIVE (NEGATIVE) 06/30/17 01:10 Urine Bilirubin NEGATIVE (NEGATIVE) 06/30/17 01:10 Urine Urobilinogen 0.2 E.U./dL (0.2 - 1.0) 06/30/17 01:10 Ur Leukocyte Esterase TRACE (NEGATIVE) H 06/30/17 01:10 Urine RBC 0-2 /hpf (0-5) 06/30/17 01:10 Urine WBC 2-5 /hpf (0-5) 06/30/17 01:10 Ur Epithelial Cells FEW /lpf (FEW) 06/30/17 01:10 Urine Bacteria FEW /hpf (NONE SEEN) 06/30/17 01:10 RPR NONREACTIVE (NONREACTIVE) 06/30/17 00:05 - Physical Exam Vitals and I&O: Vital Signs Temp 98 F 07/05/17 06:00 Pulse 75 07/05/17 07:50 Resp 18 07/05/17 11:13 BP 125/80 07/05/17 06:00 Pulse Ox 96 07/05/17 07:50 Intake & Output 07/04/17 07/05/17 07/05/17 18:59 06:59 18:59 Intake Total 380 Balance 380 Weight (lbs) 79.832 kg 79.832 kg Intake: Oral 380 Other: # Voids 1 Weight Source Estimated Bedscale Active Medications: Current Medications Acetaminophen (Tylenol Extra Strength) 500 mg PO Q6H PRN PRN Reason: MOD PAIN Stop: 08/29/17 08:21 Acetaminophen (Tylenol) 650 mg PO Q4H PRN PRN Reason: Pain Or Fever above 101 Stop: 08/29/17 08:23 Albuterol Sulfate (Albuterol 2.5mg/3ml Neb Ud) 2.5 mg HHN Q2HRT PRN PRN Reason: Shortness of Breath or Wheeze Stop: 08/29/17 08:23 Bisacodyl (Dulcolax 10 Mg Supp) 10 mg RC DAILY PRN PRN Reason: Constipation Stop: 08/29/17 08:21 Citalopram Hydrobromide (Celexa) 40 mg PO DAILY GEOFF[facility] PRN Reason: Protocol Stop: 08/29/17 08:59 Last Admin: 07/05/17 08:50 Dose: 40 mg Cyanocobalamin (Vitamin B12) 1,000 mcg PO DAILY [facility] Stop: 08/29/17 08:59 Last Admin: 07/05/17 08:53 Dose: 1,000 mcg Divalproex Sodium (Depakote Dr) 250 mg PO BID GEOFFREY PRN Reason: Protocol Stop: 08/29/17 08:59 Last Admin: 07/05/17 08:50 Dose: 250 mg Haloperidol Lactate (Haldol Concentrate 10mg/5ml Susp) 2 mg PO Q12HR GEOFF[facility]Y PRN Reason: Protocol Stop: 08/29/17 08:59 Last Admin: 07/05/17 09:02 Dose: 2 mg Heparin Sodium (Porcine) (Heparin) 5,000 units SUBQ Q12H [facility] Stop: 08/29/17 20:59 Last Admin: 07/05/17 08:51 Dose: 5,000 units Dextrose/Sodium Chloride (D5-0.45ns) 1,000 mls @ 80 mls/hr IV .[id number] [facility] [place] Stop: 08/29/17 08:29 Last Admin: 07/04/17 06:58 Dose: 80 mls/hr Ipratropium [place] (Atrovent Neb 0.5mg/2.5ml) 0.5 mg IH Q2HRT PRN PRN Reason: Shortness of Breath or Wheeze Stop: 08/29/17 08:23 Lactobacillus Rhamnosus (Culturelle 15b) 1 each PO DAILY [facility] [place] Stop: 08/31/17 08:59 Last Admin: 07/05/17 08:52 Dose: 1 each Lorazepam (Ativan) 0.5 mg IVP Q4HR PRN; Protocol PRN Reason: Agitation Stop: 08/29/17 11:43 Last Admin: 07/04/17 16:36 Dose: 0.5 mg Miscellaneous (Vte Chemical Prophylaxis Screen/ Admission) 1 ea [facility] PRN PRN PRN Reason: PROTOCOL Stop: 08/29/17 09:11 Miscellaneous (Probiotic Screen) 1 ea MC PRN PRN PRN Reason: PROTOCOL Stop: 08/30/17 09:29 Ondansetron HCl (Zofran) 4 mg IV Q8H PRN PRN Reason: Nausea / Vomiting Stop: 08/29/17 08:23 Quetiapine Fumarate (Seroquel) 400 mg PO HS GEOFFREY PRN Reason: Protocol Stop: 08/29/17 20:59 Last Admin: 07/05/17 04:33 Dose: Not Given Quetiapine Fumarate (Seroquel Xr) 200 mg PO BID GEOFFREY PRN Reason: Protocol Stop: 08/29/17 08:59 Last Admin: 07/05/17 08:53 Dose: 200 mg Sodium Phosphate (Fleet Enema) 135 ml RC DAILY PRN PRN Reason: Constipation Stop: 08/29/17 08:21 Tramadol HCl (Ultram) 50 mg PO Q6H PRN PRN Reason: Severe pain Stop: 08/29/17 08:21 Vitamin D (Vitamin D3) 2,000 iu PO DAILY [facility] Stop: 08/29/17 08:59 Last Admin: 07/05/17 08:50 Dose: 2,000 iu HEENT: NC/AT, PERRLA Neck: Supple Lungs: CTAB Cardiovascular: RRR, Normal S1, Normal S2, without murmur Abdomen: soft, non-tender, non-distended, positive bowel sound Extremities: contracture, deformity Neurological: no change, disorganized Internal Medicine Assmt/Plan - Assessment Assessment: - Assessment Assessment: acute uti altered mental status oa schizophrenia dementia - Plan Plan: continue ivantibiotic cbc/bmp in am fall precautions psych follow up continue current plan of care - Plan Plan: placement pending case dw pts [facility] med director nat rn Nutritional Asmnt/Malnutr-PDOC - Dietary Evaluation Malnutrition Findings (Please click <Entered> for more info): Nutritional Asmnt/Malnutrition Start: 07/03/17 11: 14 Text: Status: Complete Freq: Document 07/03/17 11:14 STACY (Rec: 07/03/17 11:18 STACY ERIN FN) Nutritional Asmnt/Malnutrition Patient General Information Diagnosis UTI, altered mental status Pertinent Medical Hx/Surgical Hx dementia, opioid dependence, hip disloaction, osteoarthritis, schizophrenia Subjective Information Pt asleep with sitter at bedside did not wake pt Current Diet Order/ Nutrition Support regular Pertinent Medications bisacodyl, culturelle, zofran, vit D3 Pertinent Labs 07/03: Na 139, K 3.8, Cl 109, CO2 24, BUN 17, Ca 0.6, Ca 8.8 , glucose 107 Nutritional Hx/Data Height 1.68 m Height (Calculated Centimeters) 167.6 Current Weight (lbs) 79.379 kg Weight (Calculated Kilograms) 79.4 Weight (Calculated Grams) 02507.7 Body Mass Index (BMI) 28.2 Weight Status Overweight GI Symptoms GI Symptoms None Last BM 06/30 Cultural/Ethnic/Evangelical Belief unknown Usual diet at home regular Skin Integrity/Comment: imani score 18 Current %PO Good (75-100%) Estimated Nutritional Goals BEE in Kcals: Using Current wt Calories/Kcals/Kg 25-30kcals/kg Kcals Calculated 1975-2370kcals/day Protein: Using Current wt Protein g/kg/kg Protein Calculated 79g/day Fluid: ml per MD Nutritional Problem 1. Problem Problem No nutrition diagnosis at this time Intervention/Recommendation Comments Recommend continuing Regular diet at this time Expected Outcomes/Goals Expected Outcomes/Goals PO intake >75% of meals
[2017-07-06] MEDS: Vitamin D3 2,000 IU SGL PO SCH (08:24)
[2017-07-06] MEDS: Lactobacillus Rhamnosus GG 15 Billion CFU CAP.SPRINK PO SCH (08:24)
[2017-07-06] MEDS: Haldol Oral Sol.(concentrate) 10 mg/5 mL Udc PO SCH ×2 (08:24→21:26)
--- NOTE | 2017-07-06 12:17 | Internal Medicine Prog Note ---
Internal Medicine Subjective - Subjective Service Date: 07/06/17 Patient is:: awake, verbal, interactive, ambulating, agitated, confused Per staff patient has:: no adverse event, no episodes of fall, poor appetite, agitated, combative, noncompliant, confused, tolerating meds Internal Medicine Objective - Results Result Diagrams: 07/04/17 06:20 07/04/17 06:20 Recent Labs: Laboratory Last Values WBC 5.7 Th/cmm (4.8-10.8) 07/04/17 06:20 RBC 3.93 Mil/cmm (3.80-5.20) 07/04/17 06:20 Hgb 12.4 gm/dL (12-16) 07/04/17 06:20 Hct 36.5 % (41.0-60) L 07/04/17 06:20 MCV 92.9 fl (81-100) 07/04/17 06:20 MCH 31.5 pg (27.0-31.0) H 07/04/17 06:20 MCHC Differential 33.9 pg (28.0-36.0) 07/04/17 06:20 RDW 12.6 % (11.5-20.0) 07/04/17 06:20 Plt Count 258 Th/cmm (150-400) 07/04/17 06:20 MPV 8.3 fl 07/04/17 06:20 Neutrophils % 44.7 % (40.0-80.0) 07/04/17 06:20 Lymphocytes % 37.5 % (20.0-50.0) 07/04/17 06:20 Monocytes % 11.8 % (2.0-10.0) H 07/04/17 06:20 Eosinophils % 5.2 % (0.0-5.0) H 07/04/17 06:20 Basophils % 0.8 % (0.0-2.0) 07/04/17 06:20 Sodium 137 mEq/L (136-145) 07/04/17 06:20 Potassium 3.9 mEq/L (3.5-5.1) 07/04/17 06:20 Chloride 106 mEq/L (98-107) 07/04/17 06:20 Carbon Dioxide 24.1 mEq/L (21.0-31.0) 07/04/17 06:20 Anion Gap 10.8 (7.0-16.0) 07/04/17 06:20 BUN 16 mg/dL (7-25) 07/04/17 06:20 Creatinine 0.6 mg/dL (0.6-1.2) 07/04/17 06:20 Est GFR ( Amer) > 60.0 ml/min (>90) 07/04/17 06:20 Est GFR (Non-Af Amer) > 60.0 ml/min 07/04/17 06:20 BUN/Creatinine Ratio 26.7 07/04/17 06:20 Glucose 90 mg/dL (70-105) 07/04/17 06:20 Calcium 9.1 mg/dL (8.6-10.3) 07/04/17 06:20 Magnesium 2.0 mg/dL (1.9-2.7) 06/30/17 00:05 Total Bilirubin 0.3 mg/dL (0.3-1.0) 06/29/17 00:05 AST 26 U/L (13-39) 06/29/17 00:05 ALT 35 U/L (7-52) 06/29/17 00:05 Alkaline Phosphatase 126 U/L (34-104) H 06/29/17 00:05 Troponin I < 0.01 ng/mL (0.01-0.05) L 06/30/17 00:05 B-Natriuretic Peptide 19.8 pg/mL (5.0-100.0) 06/30/17 00:05 Total Protein 6.8 gm/dL (6.0-8.3) 06/29/17 00:05 Albumin 3.9 gm/dL (3.7-5.3) 06/29/17 00:05 Globulin 2.9 gm/dL 06/29/17 00:05 Albumin/Globulin Ratio 1.3 (1.0-1.8) 06/29/17 00:05 TSH 1.93 uIU/ml (0.34-5.60) 06/29/17 00:05 Urine Source RANDOM 06/30/17 01:10 Urine Color YELLOW 06/30/17 01:10 Urine Clarity CLEAR (CLEAR) 06/30/17 01:10 Urine pH 7.0 (4.6 - 8.0) 06/30/17 01:10 Ur Specific [place] 1.010 (1.005-1.030) 06/30/17 01:10 Urine Protein NEGATIVE mg/dL (NEGATIVE) 06/30/17 01:10 Urine Glucose (UA) NEGATIVE mg/dL (NEGATIVE) 06/30/17 01:10 Urine Ketones NEGATIVE mg/dL (NEGATIVE) 06/30/17 01:10 Urine Blood NEGATIVE (NEGATIVE) 06/30/17 01:10 Urine Nitrate NEGATIVE (NEGATIVE) 06/30/17 01:10 Urine Bilirubin NEGATIVE (NEGATIVE) 06/30/17 01:10 Urine Urobilinogen 0.2 E.U./dL (0.2 - 1.0) 06/30/17 01:10 Ur Leukocyte Esterase TRACE (NEGATIVE) H 06/30/17 01:10 Urine RBC 0-2 /hpf (0-5) 06/30/17 01:10 Urine WBC 2-5 /hpf (0-5) 06/30/17 01:10 Ur Epithelial Cells FEW /lpf (FEW) 06/30/17 01:10 Urine Bacteria FEW /hpf (NONE SEEN) 06/30/17 01:10 RPR NONREACTIVE (NONREACTIVE) 06/30/17 00:05 - Physical Exam Vitals and I&O: Vital Signs Temp 98.0 F 07/06/17 03:21 Pulse 93 07/06/17 08:03 Resp 18 07/06/17 08:03 BP 118/74 07/06/17 03:21 Pulse Ox 95 07/06/17 08:03 Intake & Output 07/05/17 07/06/17 07/06/17 18:59 06:59 18:59 Intake Total 1500 360 Balance 1500 360 Weight (lbs) 176 lb 176 lb Intake: Oral 1500 360 Other: # Voids 3 3 # Bowel Movements 2 Weight Source Bedscale Bedscale Active Medications: Current Medications Acetaminophen (Tylenol Extra Strength) 500 mg PO Q6H PRN PRN Reason: MOD PAIN Stop: 08/29/17 08:21 Acetaminophen (Tylenol) 650 mg PO Q4H PRN PRN Reason: Pain Or Fever above 101 Stop: 08/29/17 08:23 Last Admin: 07/05/17 18:57 Dose: 650 mg Albuterol Sulfate (Albuterol 2.5mg/3ml Neb Ud) 2.5 mg HHN Q2HRT PRN PRN Reason: Shortness of Breath or Wheeze Stop: 08/29/17 08:23 Bisacodyl (Dulcolax 10 Mg Supp) 10 mg RC DAILY PRN PRN Reason: Constipation Stop: 08/29/17 08:21 Citalopram Hydrobromide (Celexa) 40 mg PO DAILY GEOFFREY PRN Reason: Protocol Stop: 08/29/17 08:59 Last Admin: 07/06/17 08:24 Dose: 40 mg Cyanocobalamin (Vitamin B12) 1,000 mcg PO DAILY [facility] Stop: 08/29/17 08:59 Last Admin: 07/06/17 08:24 Dose: 1,000 mcg Divalproex Sodium (Depakote Dr) 250 mg PO BID GEOFFREY PRN Reason: Protocol Stop: 08/29/17 08:59 Last Admin: 07/06/17 08:24 Dose: 250 mg Haloperidol Lactate (Haldol Concentrate 10mg/5ml Susp) 2 mg PO Q12HR GEOFFREY PRN Reason: Protocol Stop: 08/29/17 08:59 Last Admin: 07/06/17 08:24 Dose: 2 mg Heparin Sodium (Porcine) (Heparin) 5,000 units SUBQ Q12H [facility] Stop: 08/29/17 20:59 Last Admin: 07/06/17 08:28 Dose: Not Given Dextrose/Sodium Chloride (D5-0.45ns) 1,000 mls @ 80 mls/hr IV .[id number] [facility] Stop: 08/29/17 08:29 Last Admin: 07/04/17 06:58 Dose: 80 mls/hr Ipratropium [place] (Atrovent Neb 0.5mg/2.5ml) 0.5 mg IH Q2HRT PRN PRN Reason: Shortness of Breath or Wheeze Stop: 08/29/17 08:23 Lactobacillus Rhamnosus (Culturelle 15b) 1 each PO DAILY [facility] Stop: 08/31/17 08:59 Last Admin: 07/06/17 08:24 Dose: 1 each Lorazepam (Ativan) 0.5 mg IVP Q4HR PRN; Protocol PRN Reason: Agitation Stop: 08/29/17 11:43 Last Admin: 07/04/17 16:36 Dose: 0.5 mg Lorazepam (Ativan) 1 mg PO NOW ONE PRN Reason: Protocol Stop: 07/06/17 12:31 Miscellaneous (Vte Chemical Prophylaxis Screen/ Admission) 1 ea MC PRN PRN PRN Reason: PROTOCOL Stop: 08/29/17 09:11 Miscellaneous (Probiotic Screen) 1 ea MC PRN PRN PRN Reason: PROTOCOL Stop: 08/30/17 09:29 Ondansetron HCl (Zofran) 4 mg IV Q8H PRN PRN Reason: Nausea / Vomiting Stop: 08/29/17 08:23 Quetiapine Fumarate (Seroquel) 400 mg PO HS GEOFFREY PRN Reason: Protocol Stop: 08/29/17 20:59 Last Admin: 07/05/17 20:52 Dose: 400 mg Quetiapine Fumarate (Seroquel Xr) 200 mg PO BID GEOFFREY PRN Reason: Protocol Stop: 08/29/17 08:59 Last Admin: 07/06/17 08:28 Dose: 200 mg Sodium Phosphate (Fleet Enema) 135 ml RC DAILY PRN PRN Reason: Constipation Stop: 08/29/17 08:21 Tramadol HCl (Ultram) 50 mg PO Q6H PRN PRN Reason: Severe pain Stop: 08/29/17 08:21 Vitamin D (Vitamin D3) 2,000 iu PO DAILY [facility] Stop: 08/29/17 08:59 Last Admin: 07/06/17 08:24 Dose: 2,000 iu HEENT: NC/AT, PERRLA Neck: Supple Lungs: CTAB Cardiovascular: RRR, Normal S1, Normal S2, without murmur Abdomen: soft, non-tender, non-distended, positive bowel sound Extremities: contracture, deformity Neurological: no change, disorganized Internal Medicine Assmt/Plan - Assessment Assessment: acute uti altered mental status oa schizophrenia dementia - Plan Plan: continue ivantibiotic cbc/bmp in am fall precautions psych follow up continue current plan of care Nutritional Asmnt/Malnutr-PDOC - Dietary Evaluation Malnutrition Findings (Please click <Entered> for more info): Nutritional Asmnt/Malnutrition Start: 07/03/17 11: 14 Text: Status: Complete Freq: Document 07/03/17 11:14 STACY (Rec: 07/03/17 11:18 [facility] Nutritional Asmnt/Malnutrition Patient General Information Diagnosis UTI, altered mental status Pertinent Medical Hx/Surgical Hx dementia, opioid dependence, hip disloaction, osteoarthritis, schizophrenia Subjective Information Pt asleep with sitter at bedside did not wake pt Current Diet Order/ Nutrition Support regular Pertinent Medications bisacodyl, culturelle, zofran, vit D3 Pertinent Labs 07/03: Na 139, K 3.8, Cl 109, CO2 24, BUN 17, Ca 0.6, Ca 8.8 , glucose 107 Nutritional Hx/Data Height 5 ft 6 in Height (Calculated Centimeters) 167.6 Current Weight (lbs) 175 lb Weight (Calculated Kilograms) 79.4 Weight (Calculated Grams) 97421.7 Body Mass Index (BMI) 28.2 Weight Status Overweight GI Symptoms GI Symptoms None Last BM 06/30 Cultural/Ethnic/Hindu Belief unknown Usual diet at home regular Skin Integrity/Comment: imani score 18 Current %PO Good (75-100%) Estimated Nutritional Goals BEE in Kcals: Using Current wt Calories/Kcals/Kg 25-30kcals/kg Kcals Calculated 1974-2369kcals/day Protein: Using Current wt Protein g/kg/kg Protein Calculated 79g/day Fluid: ml per MD Nutritional Problem 1. Problem Problem No nutrition diagnosis at this time Intervention/Recommendation Comments Recommend continuing Regular diet at this time Expected Outcomes/Goals Expected Outcomes/Goals PO intake >75% of meals
[2017-07-07] MEDS: Lactobacillus Rhamnosus GG 15 Billion CFU CAP.SPRINK PO SCH (09:16)
[2017-07-07] MEDS: Haldol Oral Sol.(concentrate) 10 mg/5 mL Udc PO SCH ×2 (09:17→21:07)
[2017-07-07] MEDS: Vitamin D3 2,000 IU SGL PO SCH (09:17)
[2017-07-07] MEDS ORDERED: Haloperidol Lactate 5 mg/mL 1mL Vial IM ONE (13:15)
--- NOTE | 2017-07-07 14:28 | Internal Medicine Prog Note ---
Internal Medicine Subjective - Subjective Patient seen and examined:: with staff, chart reviewed Patient is:: awake, verbal, interactive, ambulating, agitated, confused Per staff patient has:: no adverse event, no episodes of fall, poor appetite, agitated, combative, noncompliant, confused, tolerating meds Internal Medicine Objective - Results Result Diagrams: 07/04/17 06:20 07/04/17 06:20 Recent Labs: Laboratory Last Values WBC 5.7 Th/cmm (4.8-10.8) 07/04/17 06:20 RBC 3.93 Mil/cmm (3.80-5.20) 07/04/17 06:20 Hgb 12.4 gm/dL (12-16) 07/04/17 06:20 Hct 36.5 % (41.0-60) L 07/04/17 06:20 MCV 92.9 fl (81-100) 07/04/17 06:20 MCH 31.5 pg (27.0-31.0) H 07/04/17 06:20 MCHC Differential 33.9 pg (28.0-36.0) 07/04/17 06:20 RDW 12.6 % (11.5-20.0) 07/04/17 06:20 Plt Count 258 Th/cmm (150-400) 07/04/17 06:20 MPV 8.3 fl 07/04/17 06:20 Neutrophils % 44.7 % (40.0-80.0) 07/04/17 06:20 Lymphocytes % 37.5 % (20.0-50.0) 07/04/17 06:20 Monocytes % 11.8 % (2.0-10.0) H 07/04/17 06:20 Eosinophils % 5.2 % (0.0-5.0) H 07/04/17 06:20 Basophils % 0.8 % (0.0-2.0) 07/04/17 06:20 Sodium 137 mEq/L (136-145) 07/04/17 06:20 Potassium 3.9 mEq/L (3.5-5.1) 07/04/17 06:20 Chloride 106 mEq/L (98-107) 07/04/17 06:20 Carbon Dioxide 24.1 mEq/L (21.0-31.0) 07/04/17 06:20 Anion Gap 10.8 (7.0-16.0) 07/04/17 06:20 BUN 16 mg/dL (7-25) 07/04/17 06:20 Creatinine 0.6 mg/dL (0.6-1.2) 07/04/17 06:20 Est GFR ( Amer) > 60.0 ml/min (>90) 07/04/17 06:20 Est GFR (Non-Af Amer) > 60.0 ml/min 07/04/17 06:20 BUN/Creatinine Ratio 26.7 07/04/17 06:20 Glucose 90 mg/dL (70-105) 07/04/17 06:20 Calcium 9.1 mg/dL (8.6-10.3) 07/04/17 06:20 Magnesium 2.0 mg/dL (1.9-2.7) 06/30/17 00:05 Total Bilirubin 0.3 mg/dL (0.3-1.0) 06/29/17 00:05 AST 26 U/L (13-39) 06/29/17 00:05 ALT 35 U/L (7-52) 06/29/17 00:05 Alkaline Phosphatase 126 U/L (34-104) H 06/29/17 00:05 Troponin I < 0.01 ng/mL (0.01-0.05) L 06/30/17 00:05 B-Natriuretic Peptide 19.8 pg/mL (5.0-100.0) 06/30/17 00:05 Total Protein 6.8 gm/dL (6.0-8.3) 06/29/17 00:05 Albumin 3.9 gm/dL (3.7-5.3) 06/29/17 00:05 Globulin 2.9 gm/dL 06/29/17 00:05 Albumin/Globulin Ratio 1.3 (1.0-1.8) 06/29/17 00:05 TSH 1.93 uIU/ml (0.34-5.60) 06/29/17 00:05 Urine Source RANDOM 06/30/17 01:10 Urine Color YELLOW 06/30/17 01:10 Urine Clarity CLEAR (CLEAR) 06/30/17 01:10 Urine pH 7.0 (4.6 - 8.0) 06/30/17 01:10 Ur Specific [place] 1.010 (1.005-1.030) 06/30/17 01:10 Urine Protein NEGATIVE mg/dL (NEGATIVE) 06/30/17 01:10 Urine Glucose (UA) NEGATIVE mg/dL (NEGATIVE) 06/30/17 01:10 Urine Ketones NEGATIVE mg/dL (NEGATIVE) 06/30/17 01:10 Urine Blood NEGATIVE (NEGATIVE) 06/30/17 01:10 Urine Nitrate NEGATIVE (NEGATIVE) 06/30/17 01:10 Urine Bilirubin NEGATIVE (NEGATIVE) 06/30/17 01:10 Urine Urobilinogen 0.2 E.U./dL (0.2 - 1.0) 06/30/17 01:10 Ur Leukocyte Esterase TRACE (NEGATIVE) H 06/30/17 01:10 Urine RBC 0-2 /hpf (0-5) 06/30/17 01:10 Urine WBC 2-5 /hpf (0-5) 06/30/17 01:10 Ur Epithelial Cells FEW /lpf (FEW) 06/30/17 01:10 Urine Bacteria FEW /hpf (NONE SEEN) 06/30/17 01:10 RPR NONREACTIVE (NONREACTIVE) 06/30/17 00:05 - Physical Exam Vitals and I&O: Vital Signs Temp 96.8 F 07/07/17 06:56 Pulse 75 07/07/17 08:20 Resp 18 07/07/17 08:20 BP 114/70 07/07/17 06:56 Pulse Ox 94 07/07/17 08:20 Intake & Output 07/06/17 07/07/17 07/07/17 18:59 06:59 18:59 Intake Total 1020 240 Balance 1020 240 Weight (lbs) 79.832 kg 79.832 kg Intake: Oral 1020 240 Other: # Voids 4 0 # Bowel Movements 0 Weight Source Estimated Estimated Active Medications: Current Medications Acetaminophen (Tylenol Extra Strength) 500 mg PO Q6H PRN PRN Reason: MOD PAIN Stop: 08/29/17 08:21 Acetaminophen (Tylenol) 650 mg PO Q4H PRN PRN Reason: Pain Or Fever above 101 Stop: 08/29/17 08:23 Last Admin: 07/05/17 18:57 Dose: 650 mg Albuterol Sulfate (Albuterol 2.5mg/3ml Neb Ud) 2.5 mg HHN Q2HRT PRN PRN Reason: Shortness of Breath or Wheeze Stop: 08/29/17 08:23 Bisacodyl (Dulcolax 10 Mg Supp) 10 mg RC DAILY PRN PRN Reason: Constipation Stop: 08/29/17 08:21 Citalopram Hydrobromide (Celexa) 40 mg PO DAILY [facility]; Protocol Stop: 08/29/17 08:59 Last Admin: 07/07/17 09:17 Dose: 40 mg Cyanocobalamin (Vitamin B12) 1,000 mcg PO DAILY [facility] Stop: 08/29/17 08:59 Last Admin: 07/07/17 09:16 Dose: 1,000 mcg Divalproex Sodium (Depakote Dr) 250 mg PO BID [facility]; Protocol Stop: 08/29/17 08:59 Last Admin: 07/07/17 09:17 Dose: 250 mg Haloperidol Lactate (Haldol Concentrate 10mg/5ml Susp) 2 mg PO Q12HR [facility]; Protocol Stop: 08/29/17 08:59 Last Admin: 07/07/17 09:17 Dose: 2 mg Heparin Sodium (Porcine) (Heparin) 5,000 units SUBQ Q12H [facility] Stop: 08/29/17 20:59 Last Admin: 07/07/17 09:17 Dose: 5,000 units Dextrose/Sodium Chloride (D5-0.45ns) 1,000 mls @ 80 mls/hr IV .[id number] [facility] Stop: 08/29/17 08:29 Last Admin: 07/04/17 06:58 Dose: 80 mls/hr Ipratropium [place] (Atrovent Neb 0.5mg/2.5ml) 0.5 mg IH Q2HRT PRN PRN Reason: Shortness of Breath or Wheeze Stop: 08/29/17 08:23 Lactobacillus Rhamnosus (Culturelle 15b) 1 each PO DAILY [facility] Stop: 08/31/17 08:59 Last Admin: 07/07/17 09:16 Dose: 1 each Lorazepam (Ativan) 0.5 mg IVP Q4HR PRN; Protocol PRN Reason: Agitation Stop: 08/29/17 11:43 Last Admin: 07/04/17 16:36 Dose: 0.5 mg Miscellaneous (Vte Chemical Prophylaxis Screen/ Admission) 1 ea [facility] PRN PRN PRN Reason: PROTOCOL Stop: 08/29/17 09:11 Miscellaneous (Probiotic Screen) 1 ea [facility] PRN PRN PRN Reason: PROTOCOL Stop: 08/30/17 09:29 Ondansetron HCl (Zofran) 4 mg IV Q8H PRN PRN Reason: Nausea / Vomiting Stop: 08/29/17 08:23 Quetiapine Fumarate (Seroquel) 400 mg PO HS [facility]; Protocol Stop: 08/29/17 20:59 Last Admin: 07/06/17 21:28 Dose: 400 mg Quetiapine Fumarate (Seroquel Xr) 200 mg PO BID [facility]; Protocol Stop: 08/29/17 08:59 Last Admin: 07/07/17 09:17 Dose: 200 mg Sodium Phosphate (Fleet Enema) 135 ml RC DAILY PRN PRN Reason: Constipation Stop: 08/29/17 08:21 Tramadol HCl (Ultram) 50 mg PO Q6H PRN PRN Reason: Severe pain Stop: 08/29/17 08:21 Last Admin: 07/07/17 12:58 Dose: 50 mg Vitamin D (Vitamin D3) 2,000 iu PO DAILY [facility] Stop: 08/29/17 08:59 Last Admin: 07/07/17 09:17 Dose: 2,000 iu General: demented HEENT: NC/AT, PERRLA Neck: Supple Lungs: CTAB Cardiovascular: RRR, Normal S1, Normal S2, without murmur Abdomen: soft, non-tender, non-distended, positive bowel sound Extremities: contracture, deformity Neurological: no change, disorganized Internal Medicine Assmt/Plan - Assessment Assessment: - Assessment Assessment: acute uti altered mental status oa schizophrenia dementia - Plan Plan: continue ivantibiotic cbc/bmp in am fall precautions psych follow up continue current plan of care - Plan Plan: placement pending case dw pts [facility] med director nat rn Nutritional Asmnt/Malnutr-PDOC - Dietary Evaluation Malnutrition Findings (Please click <Entered> for more info): Nutritional Asmnt/Malnutrition Start: 07/03/17 11: 14 Text: Status: Complete Freq: Protocol: Document 07/03/17 11:14 STACY (Rec: 07/03/17 11:18 STACY KHAN- FNS1) Nutritional Asmnt/Malnutrition Patient General Information Diagnosis UTI, altered mental status Pertinent Medical Hx/Surgical Hx dementia, opioid dependence, hip disloaction, osteoarthritis, schizophrenia Subjective Information Pt asleep with sitter at bedside did not wake pt Current Diet Order/ Nutrition Support regular Pertinent Medications bisacodyl, culturelle, zofran, vit D3 Pertinent Labs 07/03: Na 139, K 3.8, Cl 109, CO2 24, BUN 17, Ca 0.6, Ca 8.8 , glucose 107 Nutritional Hx/Data Height 1.68 m Height (Calculated Centimeters) 167.6 Current Weight (lbs) 79.379 kg Weight (Calculated Kilograms) 79.4 Weight (Calculated Grams) 67556.7 Body Mass Index (BMI) 28.2 Weight Status Overweight GI Symptoms GI Symptoms None Last BM 06/30 Cultural/Ethnic/Advent Belief unknown Usual diet at home regular Skin Integrity/Comment: imani score 18 Current %PO Good (75-100%) Estimated Nutritional Goals BEE in Kcals: Using Current wt Calories/Kcals/Kg 25-30kcals/kg Kcals Calculated 1974-2369kcals/day Protein: Using Current wt Protein g/kg/kg Protein Calculated 79g/day Fluid: ml per MD Nutritional Problem 1. Problem Problem No nutrition diagnosis at this time Intervention/Recommendation Comments Recommend continuing Regular diet at this time Expected Outcomes/Goals Expected Outcomes/Goals PO intake >75% of meals
[2017-07-07] MEDS ORDERED: Haloperidol Lactate 5 mg/mL 1mL Vial IM PRN (18:53)
--- NOTE | 2017-07-08 00:25 | Progress Notes ---
DATE: 07/07/2017 SUBJECTIVE: Staff was spoken to. The patient is interviewed. The patient is irritable, angry, screaming and yelling and has been trying to kick the staff whenever they are trying to help her out. The patient has no insight into her illness. The patient has been given a dose of the Ativan, Haldol, and Benadryl before and in view of the patient's continued agitation, it has been decided to continue with the q. 6 hours on the p.r.n. dose of the medications and the patient is going to be followed up. JOB# [id number]
[2017-07-08] MEDS: Haldol Oral Sol.(concentrate) 10 mg/5 mL Udc PO SCH ×2 (09:01→20:33)
[2017-07-08] MEDS: Lactobacillus Rhamnosus GG 15 Billion CFU CAP.SPRINK PO SCH (09:03)
[2017-07-08] MEDS: Vitamin D3 2,000 IU SGL PO SCH (09:03)
--- NOTE | 2017-07-08 15:47 | Internal Medicine Prog Note ---
Internal Medicine Subjective - Subjective Service Date: 07/08/17 Patient is:: awake, verbal, interactive, ambulating, agitated, confused Per staff patient has:: no adverse event, no episodes of fall, poor appetite, agitated, combative, noncompliant, confused, tolerating meds Internal Medicine Objective - Results Result Diagrams: 07/04/17 06:20 07/04/17 06:20 Recent Labs: Laboratory Last Values WBC 5.7 Th/cmm (4.8-10.8) 07/04/17 06:20 RBC 3.93 Mil/cmm (3.80-5.20) 07/04/17 06:20 Hgb 12.4 gm/dL (12-16) 07/04/17 06:20 Hct 36.5 % (41.0-60) L 07/04/17 06:20 MCV 92.9 fl (81-100) 07/04/17 06:20 MCH 31.5 pg (27.0-31.0) H 07/04/17 06:20 MCHC Differential 33.9 pg (28.0-36.0) 07/04/17 06:20 RDW 12.6 % (11.5-20.0) 07/04/17 06:20 Plt Count 258 Th/cmm (150-400) 07/04/17 06:20 MPV 8.3 fl 07/04/17 06:20 Neutrophils % 44.7 % (40.0-80.0) 07/04/17 06:20 Lymphocytes % 37.5 % (20.0-50.0) 07/04/17 06:20 Monocytes % 11.8 % (2.0-10.0) H 07/04/17 06:20 Eosinophils % 5.2 % (0.0-5.0) H 07/04/17 06:20 Basophils % 0.8 % (0.0-2.0) 07/04/17 06:20 Sodium 137 mEq/L (136-145) 07/04/17 06:20 Potassium 3.9 mEq/L (3.5-5.1) 07/04/17 06:20 Chloride 106 mEq/L (98-107) 07/04/17 06:20 Carbon Dioxide 24.1 mEq/L (21.0-31.0) 07/04/17 06:20 Anion Gap 10.8 (7.0-16.0) 07/04/17 06:20 BUN 16 mg/dL (7-25) 07/04/17 06:20 Creatinine 0.6 mg/dL (0.6-1.2) 07/04/17 06:20 Est GFR ( Amer) > 60.0 ml/min (>90) 07/04/17 06:20 Est GFR (Non-Af Amer) > 60.0 ml/min 07/04/17 06:20 BUN/Creatinine Ratio 26.7 07/04/17 06:20 Glucose 90 mg/dL (70-105) 07/04/17 06:20 Calcium 9.1 mg/dL (8.6-10.3) 07/04/17 06:20 Magnesium 2.0 mg/dL (1.9-2.7) 06/30/17 00:05 Total Bilirubin 0.3 mg/dL (0.3-1.0) 06/29/17 00:05 AST 26 U/L (13-39) 06/29/17 00:05 ALT 35 U/L (7-52) 06/29/17 00:05 Alkaline Phosphatase 126 U/L (34-104) H 06/29/17 00:05 Troponin I < 0.01 ng/mL (0.01-0.05) L 06/30/17 00:05 B-Natriuretic Peptide 19.8 pg/mL (5.0-100.0) 06/30/17 00:05 Total Protein 6.8 gm/dL (6.0-8.3) 06/29/17 00:05 Albumin 3.9 gm/dL (3.7-5.3) 06/29/17 00:05 Globulin 2.9 gm/dL 06/29/17 00:05 Albumin/Globulin Ratio 1.3 (1.0-1.8) 06/29/17 00:05 TSH 1.93 uIU/ml (0.34-5.60) 06/29/17 00:05 Urine Source RANDOM 06/30/17 01:10 Urine Color YELLOW 06/30/17 01:10 Urine Clarity CLEAR (CLEAR) 06/30/17 01:10 Urine pH 7.0 (4.6 - 8.0) 06/30/17 01:10 Ur Specific [place] 1.010 (1.005-1.030) 06/30/17 01:10 Urine Protein NEGATIVE mg/dL (NEGATIVE) 06/30/17 01:10 Urine Glucose (UA) NEGATIVE mg/dL (NEGATIVE) 06/30/17 01:10 Urine Ketones NEGATIVE mg/dL (NEGATIVE) 06/30/17 01:10 Urine Blood NEGATIVE (NEGATIVE) 06/30/17 01:10 Urine Nitrate NEGATIVE (NEGATIVE) 06/30/17 01:10 Urine Bilirubin NEGATIVE (NEGATIVE) 06/30/17 01:10 Urine Urobilinogen 0.2 E.U./dL (0.2 - 1.0) 06/30/17 01:10 Ur Leukocyte Esterase TRACE (NEGATIVE) H 06/30/17 01:10 Urine RBC 0-2 /hpf (0-5) 06/30/17 01:10 Urine WBC 2-5 /hpf (0-5) 06/30/17 01:10 Ur Epithelial Cells FEW /lpf (FEW) 06/30/17 01:10 Urine Bacteria FEW /hpf (NONE SEEN) 06/30/17 01:10 RPR NONREACTIVE (NONREACTIVE) 06/30/17 00:05 - Physical Exam Vitals and I&O: Vital Signs Temp 98.5 F 07/08/17 04:07 Pulse 86 07/08/17 13:49 Resp 18 07/08/17 13:49 BP 126/76 07/08/17 04:07 Pulse Ox 98 07/08/17 13:49 Intake & Output 07/07/17 07/08/17 07/08/17 18:59 06:59 18:59 Intake Total 600 Balance 600 Weight (lbs) 176 lb 176 lb 176 lb Intake: Oral 600 Other: # Voids 2 # Bowel Movements 1 Stool Characteristics Soft Brown Weight Source Bedscale Estimated Estimated Active Medications: Current Medications Acetaminophen (Tylenol Extra Strength) 500 mg PO Q6H PRN PRN Reason: MOD PAIN Stop: 08/29/17 08:21 Acetaminophen (Tylenol) 650 mg PO Q4H PRN PRN Reason: Pain Or Fever above 101 Stop: 08/29/17 08:23 Last Admin: 07/05/17 18:57 Dose: 650 mg Albuterol Sulfate (Albuterol 2.5mg/3ml Neb Ud) 2.5 mg HHN Q2HRT PRN PRN Reason: Shortness of Breath or Wheeze Stop: 08/29/17 08:23 Bisacodyl (Dulcolax 10 Mg Supp) 10 mg RC DAILY PRN PRN Reason: Constipation Stop: 08/29/17 08:21 Citalopram Hydrobromide (Celexa) 40 mg PO DAILY [facility]; Protocol Stop: 08/29/17 08:59 Last Admin: 07/08/17 09:03 Dose: 40 mg Cyanocobalamin (Vitamin B12) 1,000 mcg PO DAILY [facility] Stop: 08/29/17 08:59 Last Admin: 07/08/17 09:03 Dose: 1,000 mcg Diphenhydramine HCl (Benadryl 50 Mg/Ml) 50 mg IM Q6HR PRN PRN Reason: Agitation Stop: 09/05/17 18:54 Divalproex Sodium (Depakote Dr) 250 mg PO BID [facility]; Protocol Stop: 08/29/17 08:59 Last Admin: 07/08/17 09:01 Dose: 250 mg Haloperidol Lactate (Haldol Concentrate 10mg/5ml Susp) 2 mg PO Q12HR [facility]; Protocol Stop: 08/29/17 08:59 Last Admin: 07/08/17 09:01 Dose: 2 mg Haloperidol Lactate (Haldol) 5 mg IM Q6HR PRN PRN Reason: Agitation Stop: 09/05/17 18:52 Heparin Sodium (Porcine) (Heparin) 5,000 units SUBQ Q12H [facility] Stop: 08/29/17 20:59 Last Admin: 07/08/17 09:04 Dose: Not Given Dextrose/Sodium Chloride (D5-0.45ns) 1,000 mls @ 80 mls/hr IV .[id number] [facility] Stop: 08/29/17 08:29 Last Admin: 07/04/17 06:58 Dose: 80 mls/hr Ipratropium [place] (Atrovent Neb 0.5mg/2.5ml) 0.5 mg IH Q2HRT PRN PRN Reason: Shortness of Breath or Wheeze Stop: 08/29/17 08:23 Lactobacillus Rhamnosus (Culturelle 15b) 1 each PO DAILY [facility] Stop: 08/31/17 08:59 Last Admin: 07/08/17 09:03 Dose: 1 each Lorazepam (Ativan) 0.5 mg IVP Q4HR PRN; Protocol PRN Reason: Agitation Stop: 08/29/17 11:43 Last Admin: 07/04/17 16:36 Dose: 0.5 mg Lorazepam (Ativan) 1 mg IM Q6HR PRN; Protocol PRN Reason: Agitation Stop: 09/05/17 18:53 Miscellaneous (Vte Chemical Prophylaxis Screen/ Admission) 1 ea PRN PRN PRN Reason: PROTOCOL Stop: 08/29/17 09:11 Miscellaneous (Probiotic Screen) 1 ea PRN PRN PRN Reason: PROTOCOL Stop: 08/30/17 09:29 Ondansetron HCl (Zofran) 4 mg IV Q8H PRN PRN Reason: Nausea / Vomiting Stop: 08/29/17 08:23 Quetiapine Fumarate (Seroquel) 400 mg PO HS [facility]; Protocol Stop: 08/29/17 20:59 Last Admin: 07/07/17 21:07 Dose: 400 mg Quetiapine Fumarate (Seroquel Xr) 200 mg PO BID [facility]; Protocol Stop: 08/29/17 08:59 Last Admin: 07/08/17 09:03 Dose: 200 mg Sodium Phosphate (Fleet Enema) 135 ml RC DAILY PRN PRN Reason: Constipation Stop: 08/29/17 08:21 Tramadol HCl (Ultram) 50 mg PO Q6H PRN PRN Reason: Severe pain Stop: 08/29/17 08:21 Last Admin: 07/07/17 12:58 Dose: 50 mg Vitamin D (Vitamin D3) 2,000 iu PO DAILY [facility] Stop: 08/29/17 08:59 Last Admin: 07/08/17 09:03 Dose: 2,000 iu General: demented HEENT: NC/AT, PERRLA Neck: Supple Lungs: CTAB Cardiovascular: RRR, Normal S1, Normal S2, without murmur Abdomen: soft, non-tender, non-distended, positive bowel sound Extremities: contracture, deformity Neurological: no change, disorganized Internal Medicine Assmt/Plan - Assessment Assessment: acute uti altered mental status oa schizophrenia dementia - Plan Plan: continue ivantibiotic cbc/bmp in am fall precautions psych follow up continue current plan of care Nutritional Asmnt/Malnutr-PDOC - Dietary Evaluation Malnutrition Findings (Please click <Entered> for more info): Nutritional Asmnt/Malnutrition Start: 07/03/17 11: 14 Text: Status: Complete Freq: Protocol: Document 07/03/17 11:14 DUKEDREW (Rec: 07/03/17 11:18 STACY KHAN- FNS1) Nutritional Asmnt/Malnutrition Patient General Information Diagnosis UTI, altered mental status Pertinent Medical Hx/Surgical Hx dementia, opioid dependence, hip disloaction, osteoarthritis, schizophrenia Subjective Information Pt asleep with sitter at bedside did not wake pt Current Diet Order/ Nutrition Support regular Pertinent Medications bisacodyl, culturelle, zofran, vit D3 Pertinent Labs 07/03: Na 139, K 3.8, Cl 109, CO2 24, BUN 17, Ca 0.6, Ca 8.8 , glucose 107 Nutritional Hx/Data Height 5 ft 6 in Height (Calculated Centimeters) 167.6 Current Weight (lbs) 175 lb Weight (Calculated Kilograms) 79.4 Weight (Calculated Grams) 55182.7 Body Mass Index (BMI) 28.2 Weight Status Overweight GI Symptoms GI Symptoms None Last BM 06/30 Cultural/Ethnic/[place] Belief unknown Usual diet at home regular Skin Integrity/Comment: imani score 18 Current %PO Good (75-100%) Estimated Nutritional Goals BEE in Kcals: Using Current wt Calories/Kcals/Kg 25-30kcals/kg Kcals Calculated 1974-2369kcals/day Protein: Using Current wt Protein g/kg/kg Protein Calculated 79g/day Fluid: ml per MD Nutritional Problem 1. Problem Problem No nutrition diagnosis at this time Intervention/Recommendation Comments Recommend continuing Regular diet at this time Expected Outcomes/Goals Expected Outcomes/Goals PO intake >75% of meals
[2017-07-09] MEDS: Haldol Oral Sol.(concentrate) 10 mg/5 mL Udc PO SCH (10:00)
[2017-07-09] MEDS: Vitamin D3 2,000 IU SGL PO SCH (10:00)
[2017-07-09] MEDS: Lactobacillus Rhamnosus GG 15 Billion CFU CAP.SPRINK PO SCH (10:01)
--- NOTE | 2017-07-29 18:18 | Discharge Summary ---
DATE OF DISCHARGE: 07/09/2017 DISCHARGE DIAGNOSES: 1. Acute urinary tract infection. 2. Altered mental status, resolved. 3. Osteoarthritis. 4. Schizoaffective disorder. 5. Dementia. 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 The patient was noted with acute UTI. For further management, the patient admitted. PHYSICAL EXAMINATION: GENERAL: The patient is well-developed, well-nourished, in no apparent distress. VITAL SIGNS: Stable. HEENT: Head is normocephalic and atraumatic. NECK: Supple. No mass. LUNGS: Clear bilaterally. HEART: Regular rate and rhythm. ABDOMEN: Soft and nontender. HOSPITAL COURSE: During the hospital stay, the patient was admitted to the med/surg unit. The patient had a chest x-ray, no acute cardiopulmonary processes. The patient was kept on empiric IV antibiotics of Rocephin and the patient also had a 1:1 sitter for safety and IV fluids for hydration as well. The patient was seen by psychiatrist. The patient's WBCs have been within normal limits. No signs of any fevers. For this reason, the patient was stable for discharge. CONDITION UPON DISCHARGE: Fair. [facility] JOB# [id number]
== END 2017-07-09 11:44 | DRG 689 ==
LOC: ER 23:51 → MSI 06-30 04:20
PROVIDERS: ADMIT Internal Medicine; ATTEND Internal Medicine
DX: N39.0 Urinary tract infection, site not specified (principal); G93.40 Encephalopathy, unspecified; F03.91 Unspecified dementia, unspecified severity, with behavioral disturbance; R41.82 Altered mental status, unspecified; M19.90 Unspecified osteoarthritis, unspecified site; F20.9 Schizophrenia, unspecified; F29 Unspecified psychosis not due to a substance or known physiological condition
CPT/HCPCS: 36415-UA; 71045-TC; 80048-TC; 80053-TC; 81001-TC; 83735-TC; 83880-TC; 84443-TC; 84484-TC; 85025-TC; 86592-TC; 93005; 94760; J0696; J1200; J1630; J1644; J2060; J7030; Z7610

== ENCOUNTER 2017-07-09 12:02 | Inpatient (IN) | payer OTHER ==
[2017-07-09 12:53] VITALS: BP 127/76
[2017-07-09] MEDS ORDERED: Acetaminophen 500 MG TAB PO PRN (13:24)
[2017-07-09] MEDS ORDERED: Albuterol Nebulizer 2.5mg/3mL HHN PRN (13:27)
--- NOTE | 2017-07-09 14:15 | Internal Medicine Prog Note ---
Internal Medicine Subjective - Subjective Service Date: 07/09/17 Patient seen and examined:: with staff Patient is:: awake, verbal Per staff patient has:: tolerating meds Internal Medicine Objective - Physical Exam Vitals and I&O: Vital Signs Temp Pulse 84 07/09/17 13:34 Resp 18 07/09/17 13:34 BP 127/76 07/09/17 12:53 Pulse Ox 94 07/09/17 13:34 Intake & Output 07/08/17 07/09/17 07/09/17 18:59 06:59 18:59 Weight (lbs) 176 lb Other: Weight Source Patient stated Active Medications: Current Medications Acetaminophen (Tylenol Extra Strength) 500 mg PO Q6H PRN PRN Reason: MODERATE PAIN Stop: 09/07/17 13:23 Acetaminophen (Tylenol) 650 mg PO Q4H PRN PRN Reason: MILD PAIN OR FEVER ABOVE 101 Stop: 09/07/17 13:24 Albuterol Sulfate (Albuterol 2.5mg/3ml Neb Ud) 2.5 mg HHN Q4H PRN PRN Reason: SOB OR WHEEZE Stop: 09/07/17 13:26 Cholecalciferol (Vitamin D3) 2,000 iu PO DAILY [facility] Stop: 09/08/17 08:59 Citalopram Hydrobromide (Celexa) 40 mg PO DAILY [facility]; Protocol Stop: 09/08/17 08:59 Divalproex Sodium (Depakote Dr) 250 mg PO BID [facility]; Protocol Stop: 09/07/17 16:59 Haloperidol (Haldol) 2 mg PO BID [facility]; Protocol Stop: 09/07/17 16:59 Ipratropium [place] (Atrovent Neb 0.5mg/2.5ml) 0.5 mg HHN Q4HRT [facility] Stop: 09/07/17 14:59 Lactobacillus Rhamnosus (Culturelle 15b) 1 each PO DAILY [facility] Stop: 09/08/17 08:59 Ondansetron HCl (Zofran Odt) 4 mg PO Q8H PRN PRN Reason: Nausea / Vomiting Stop: 09/07/17 13:41 Quetiapine Fumarate (Seroquel) 400 mg PO HS [facility]; Protocol Stop: 09/07/17 20:59 Quetiapine Fumarate (Seroquel Xr) 200 mg PO BID [facility]; Protocol Stop: 09/07/17 16:59 Tramadol HCl (Ultram) 50 mg PO Q6HR PRN PRN Reason: Severe Pain Stop: 09/07/17 13:42 General: alert HEENT: NC/AT, PERRLA Neck: Supple Lungs: CTAB Cardiovascular: RRR, Normal S1, Normal S2, without murmur Abdomen: soft, non-tender, non-distended, positive bowel sound Internal Medicine Assmt/Plan - Assessment Assessment: oa schizophrenia dementia - Plan Plan: fall precautions continue current plan of care
[2017-07-09] MEDS ORDERED: Ipratropium Neb 0.5 mg/2.5 mL UD HHN PRN (14:16)
[2017-07-09] MEDS ORDERED: Haloperidol Lactate 5 mg/mL 1mL Vial ONE (14:19)
[2017-07-09] MEDS ORDERED: Haloperidol Lactate 5 mg/mL 1mL Vial IM ONE (14:26)
[2017-07-09] MEDS ORDERED: Ipratropium Neb 0.5 mg/2.5 mL UD HHN SCH (15:00)
--- NOTE | 2017-07-09 22:49 | Psychosocial Evaluation ---
DATE OF SERVICE: 07/09/2017 IDENTIFYING DATA: The patient is a 66-year-old woman, resident of a alf facility. Information obtained by directly interviewing the patient as well as reviewing the patient. with this hospitalization: JUSTIFICATION FOR HOSPITALIZATION: The patient has been admitted here on a voluntary basis in view of her acute psychosis. CHIEF COMPLAINT: "I need to get out of here, get me out." HISTORY OF PRESENT ILLNESS: This is the second psychiatric hospitalization for this patient who is reported to have been diagnosed to have schizophrenia and was hospitalized here in 02/2017. The patient at the time of the evaluation has been screaming and yelling and has been acutely paranoid and has been trying to get out of the GD chair. The patient has been seen by me in the medical unit for consultation. The patient at this time is not able to contract. The patient has been talking to herself and screaming and yelling at the top of her lungs. PAST PSYCHIATRIC HISTORY: The patient had been hospitalized here for schizophrenia. MEDICAL HISTORY: Physical examination is requested to be done by Dr. Bennett. SUBSTANCE ABUSE HISTORY: None. PHYSICAL OR SEXUAL HISTORY: None. LEGAL PROBLEMS: None at this time. MENTAL STATUS EXAMINATION: The patient is a 66-year-old woman looking her stated age, superficially cooperative. Eye contact is poor. Mood is noted to be irritable. Affect is constricted. Insight and judgment at this time are noted to be still impaired. Impulse control is noted to be limited. The patient has been having difficult time to cope with the stress. The patient is screaming and yelling and the patient is not able to contract for safety. The patient has no insight into her illness. The patient is alert and awake, but she is not having a clue that she is in the hospital. The patient is having acute mood swings and the patient is not jonh for safety. The patient's behavior is a clear danger to self and others. The patient has been medicated with Ativan, Benadryl, and Haldol prior to this evaluation. The patient is; however, having difficult time to cope with the stress. DIAGNOSTIC IMPRESSION: AXIS I: Schizophrenia, chronic paranoid type. AXIS II: None. AXIS III: As per Dr. Bennett. IMMEDIATE TREATMENT PLAN: The patient is going to be continued on Seroquel that is being given at 200 mg twice a day and 400 mg at bedtime. The patient is going to be placed on the Depakote that is going to be given 250 mg twice a day and the patient is going to be given the Haldol on a p.r.n. basis and the patient is going to be followed up with the supportive therapy. Estimated length of stay 5-7 days. DISCHARGE CRITERIA: When she no longer a threat to self or others. [facility]# [id number]
[2017-07-10] MEDS: Lactobacillus Rhamnosus GG 15 Billion CFU CAP.SPRINK PO SCH (09:23)
--- NOTE | 2017-07-10 15:29 | Progress Notes ---
DATE: 07/10/2017 SUBJECTIVE: Staff was spoken to. The patient is interviewed. Mood is noted to be irritable. Affect is constricted. Coping skills are noted to be poor. Sleep and appetite also noted to be very poor. The patient is screaming and yelling. The patient has been having acute mood swings. The patient has been placed on the Depakote, which is given 200 mg twice a day. I am trying to decrease the dose on the citalopram, which is going to be decreased to 10 mg. PLAN: To continue the patient with the supportive therapy and followup. The patient is going to be closely monitored with the Seroquel and Depakote. Please note that the patient is not ready because of her agitated behavior for discharge for followup on outpatient basis. JOB# [id number]
--- NOTE | 2017-07-10 17:28 | Internal Medicine Prog Note ---
Internal Medicine Subjective - Subjective Service Date: 07/10/17 Patient seen and examined:: with staff Patient is:: awake, verbal Per staff patient has:: tolerating meds Internal Medicine Objective - Physical Exam Vitals and I&O: Vital Signs Temp 96.9 F 07/10/17 15:15 Pulse 78 07/10/17 15:15 Resp 19 07/10/17 15:15 BP 109/64 07/10/17 15:15 Pulse Ox 95 07/10/17 15:15 Intake & Output 07/09/17 07/10/17 07/10/17 18:59 06:59 18:59 Intake Total 620 Balance 620 Intake: Oral 620 Other: # Voids 2 Weight Source Patient stated Active Medications: Current Medications Acetaminophen (Tylenol) 650 mg PO Q4H PRN PRN Reason: MILD PAIN OR FEVER ABOVE 101 Stop: 09/07/17 13:24 Last Admin: 07/10/17 06:59 Dose: 650 mg Albuterol Sulfate (Albuterol 2.5mg/3ml Neb Ud) 2.5 mg HHN Q4H PRN PRN Reason: SOB OR WHEEZE Stop: 09/07/17 13:26 Cholecalciferol (Vitamin D3) 2,000 iu PO DAILY [facility] Stop: 09/08/17 08:59 Last Admin: 07/10/17 09:23 Dose: 2,000 iu Citalopram Hydrobromide (Celexa) 10 mg PO DAILY [facility]; Protocol Stop: 09/09/17 08:59 Divalproex Sodium (Depakote Dr) 250 mg PO BID [facility]; Protocol Stop: 09/07/17 21:59 Last Admin: 07/10/17 09:23 Dose: 250 mg Haloperidol (Haldol) 2 mg PO BID [facility]; Protocol Stop: 09/07/17 21:59 Last Admin: 07/10/17 09:22 Dose: 2 mg Ipratropium [place] (Atrovent Neb 0.5mg/2.5ml) 0.5 mg HHN Q4HRT PRN PRN Reason: sob Stop: 09/07/17 14:59 Lactobacillus Rhamnosus (Culturelle 15b) 1 each PO DAILY [facility] Stop: 09/08/17 08:59 Last Admin: 07/10/17 09:23 Dose: 1 each Lorazepam (Ativan) 0.5 mg PO Q4HR PRN; Protocol PRN Reason: Agitation Stop: 09/07/17 21:11 Ondansetron HCl (Zofran Odt) 4 mg PO Q8H PRN PRN Reason: Nausea / Vomiting Stop: 09/07/17 13:41 Quetiapine Fumarate (Seroquel) 400 mg PO HS [facility]; Protocol Stop: 09/07/17 21:59 Last Admin: 07/09/17 21:54 Dose: 400 mg Quetiapine Fumarate (Seroquel Xr) 200 mg PO BID [facility]; Protocol Stop: 09/08/17 08:59 Last Admin: 07/10/17 09:23 Dose: 200 mg Tramadol HCl (Ultram) 50 mg PO Q6HR PRN PRN Reason: Severe Pain Stop: 09/07/17 13:42 Zolpidem Tartrate (Ambien) 5 mg PO HS PRN PRN Reason: Insomnia Stop: 09/07/17 21:12 General: alert HEENT: NC/AT, PERRLA Neck: Supple Lungs: CTAB Cardiovascular: RRR, Normal S1, Normal S2, without murmur Abdomen: soft, non-tender, non-distended, positive bowel sound Internal Medicine Assmt/Plan - Assessment Assessment: oa schizophrenia dementia - Plan Plan: fall precautions continue current plan of care
[2017-07-11] MEDS: Lactobacillus Rhamnosus GG 15 Billion CFU CAP.SPRINK PO SCH (10:03)
--- NOTE | 2017-07-11 12:37 | Internal Medicine Prog Note ---
Internal Medicine Subjective - Subjective Service Date: 07/11/17 Patient is:: awake, verbal Per staff patient has:: tolerating meds Internal Medicine Objective - Physical Exam Vitals and I&O: Vital Signs Temp 98.6 F 07/10/17 20:00 Pulse 96 07/10/17 20:00 Resp 20 07/10/17 20:00 BP 110/67 07/10/17 20:00 Pulse Ox 96 07/10/17 20:00 Intake & Output 07/10/17 07/11/17 07/11/17 18:59 06:59 18:59 Intake Total 1200 540 Balance 1200 540 Intake: Oral 1200 540 Other: # Voids 3 1 # Bowel Movements 0 Active Medications: Current Medications Acetaminophen (Tylenol) 650 mg PO Q4H PRN PRN Reason: MILD PAIN OR FEVER ABOVE 101 Stop: 09/07/17 13:24 Last Admin: 07/10/17 06:59 Dose: 650 mg Albuterol Sulfate (Albuterol 2.5mg/3ml Neb Ud) 2.5 mg HHN Q4H PRN PRN Reason: SOB OR WHEEZE Stop: 09/07/17 13:26 Cholecalciferol (Vitamin D3) 2,000 iu PO DAILY [facility] Stop: 09/08/17 08:59 Last Admin: 07/11/17 10:05 Dose: 2,000 iu Divalproex Sodium (Depakote Dr) 250 mg PO BID [facility]; Protocol Stop: 09/07/17 21:59 Last Admin: 07/11/17 10:03 Dose: 250 mg Haloperidol (Haldol) 2 mg PO BID [facility]; Protocol Stop: 09/07/17 21:59 Last Admin: 07/11/17 10:03 Dose: 2 mg Ipratropium [place] (Atrovent Neb 0.5mg/2.5ml) 0.5 mg HHN Q4HRT PRN PRN Reason: sob Stop: 09/07/17 14:59 Lactobacillus Rhamnosus (Culturelle 15b) 1 each PO DAILY [facility] Stop: 09/08/17 08:59 Last Admin: 07/11/17 10:03 Dose: 1 each Lorazepam (Ativan) 0.5 mg PO Q4HR PRN; Protocol PRN Reason: Agitation Stop: 09/07/17 21:11 Ondansetron HCl (Zofran Odt) 4 mg PO Q8H PRN PRN Reason: Nausea / Vomiting Stop: 09/07/17 13:41 Quetiapine Fumarate (Seroquel) 400 mg PO HS [facility]; Protocol Stop: 09/07/17 21:59 Last Admin: 07/10/17 20:53 Dose: 400 mg Quetiapine Fumarate (Seroquel Xr) 200 mg PO BID [facility]; Protocol Stop: 09/08/17 08:59 Last Admin: 07/11/17 10:04 Dose: 200 mg Tramadol HCl (Ultram) 50 mg PO Q6HR PRN PRN Reason: Severe Pain Stop: 09/07/17 13:42 Zolpidem Tartrate (Ambien) 5 mg PO HS PRN PRN Reason: Insomnia Stop: 09/07/17 21:12 Last Admin: 07/10/17 20:53 Dose: 5 mg General: alert HEENT: NC/AT, PERRLA Neck: Supple Lungs: CTAB Cardiovascular: RRR, Normal S1, Normal S2, without murmur Abdomen: soft, non-tender, non-distended, positive bowel sound Internal Medicine Assmt/Plan - Assessment Assessment: oa schizophrenia dementia - Plan Plan: fall precautions continue current plan of care
--- NOTE | 2017-07-11 13:47 | Progress Notes ---
DATE: 07/11/2017 PSYCHIATRIC PROGRESS NOTE SUBJECTIVE: Staff was spoken to. The patient is interviewed. Mood is noted to be irritable. Affect is constricted. Continues to be paranoid, screaming and yelling. The patient has been encouraged to participate in groups and verbalize the concerns rather than to act out. The patient at this time is maintained on valproic acid, which is being ____ at 250 mg, the patient is going to be getting off of citalopram, and the patient is going to be closely monitored. Encouraged to verbalize the concerns rather than to act out. The patient's mood swings are coming under control. The patient is currently on 2 mg twice a day haloperidol and 400 mg of Seroquel at nighttime and 200 mg b.i.d. The patient has been able to tolerate the medications. ASSESSMENT: The patient's psychosis is resolving. PLAN: To continue the patient with supportive therapy. I encouraged the patient to verbalize the concerns rather than to act out. [facility]# [id number]
--- NOTE | 2017-07-11 16:18 | Progress Notes ---
DATE: SUBJECTIVE: The patient seen, chart reviewed, discussed with staff. The patient was noted to be quite psychotic, responding to internal stimuli. I did review the reasons for the patient's admission and also medication review. The patient is somewhat paranoid on exam, fixated on her glasses, although glasses never came in with her, but she is ruminative about them being lost. Slept very well last night, eating with some prompting. Staff is keeping a close eye on her, redirecting her. ASSESSMENT: The patient remains symptomatic, ongoing psychotic symptoms, ruminative, somewhat anxious, and disorganized. PLAN: We will continue to monitor. We will continue to adjust and titrate medications. Given her ongoing symptoms, she is not currently safe for a lower level of care. JOB# [id number]
[2017-07-12] MEDS: Lactobacillus Rhamnosus GG 15 Billion CFU CAP.SPRINK PO SCH (08:12)
--- NOTE | 2017-07-12 10:06 | Internal Medicine Prog Note ---
Internal Medicine Subjective - Subjective Service Date: 07/12/17 Patient is:: awake, verbal Per staff patient has:: tolerating meds Internal Medicine Objective - Physical Exam Vitals and I&O: Vital Signs Temp 97.7 F 07/12/17 04:45 Pulse 72 07/12/17 04:45 Resp 18 07/12/17 04:45 BP 123/72 07/12/17 04:45 Pulse Ox 96 07/12/17 04:45 Intake & Output 07/11/17 07/12/17 07/12/17 18:59 06:59 18:59 Intake Total 480 Balance 480 Intake: Oral 480 Other: # Voids 2 Active Medications: Current Medications Acetaminophen (Tylenol) 650 mg PO Q4H PRN PRN Reason: MILD PAIN OR FEVER ABOVE 101 Stop: 09/07/17 13:24 Last Admin: 07/10/17 06:59 Dose: 650 mg Albuterol Sulfate (Albuterol 2.5mg/3ml Neb Ud) 2.5 mg HHN Q4H PRN PRN Reason: SOB OR WHEEZE Stop: 09/07/17 13:26 Cholecalciferol (Vitamin D3) 2,000 iu PO DAILY [facility] Stop: 09/08/17 08:59 Last Admin: 07/12/17 08:10 Dose: 2,000 iu Divalproex Sodium (Depakote Dr) 250 mg PO BID [facility]; Protocol Stop: 09/07/17 21:59 Last Admin: 07/12/17 08:11 Dose: 250 mg Haloperidol (Haldol) 2 mg PO BID [facility]; Protocol Stop: 09/07/17 21:59 Last Admin: 07/12/17 08:09 Dose: 2 mg Ipratropium [place] (Atrovent Neb 0.5mg/2.5ml) 0.5 mg HHN Q4HRT PRN PRN Reason: sob Stop: 09/07/17 14:59 Lactobacillus Rhamnosus (Culturelle 15b) 1 each PO DAILY [facility] Stop: 09/08/17 08:59 Last Admin: 07/12/17 08:12 Dose: 1 each Lorazepam (Ativan) 0.5 mg PO Q4HR PRN; Protocol PRN Reason: Agitation Stop: 09/07/17 21:11 Last Admin: 07/12/17 08:10 Dose: 0.5 mg Ondansetron HCl (Zofran Odt) 4 mg PO Q8H PRN PRN Reason: Nausea / Vomiting Stop: 09/07/17 13:41 Quetiapine Fumarate (Seroquel) 400 mg PO HS [facility]; Protocol Stop: 09/07/17 21:59 Last Admin: 07/11/17 20:56 Dose: 400 mg Quetiapine Fumarate (Seroquel Xr) 200 mg PO BID [facility]; Protocol Stop: 09/08/17 08:59 Last Admin: 07/12/17 08:11 Dose: 200 mg Tramadol HCl (Ultram) 50 mg PO Q6HR PRN PRN Reason: Severe Pain Stop: 09/07/17 13:42 Last Admin: 07/11/17 18:43 Dose: 50 mg Zolpidem Tartrate (Ambien) 5 mg PO HS PRN PRN Reason: Insomnia Stop: 09/07/17 21:12 Last Admin: 07/11/17 20:57 Dose: 5 mg General: alert HEENT: NC/AT, PERRLA Neck: Supple Lungs: CTAB Cardiovascular: RRR, Normal S1, Normal S2, without murmur Abdomen: soft, non-tender, non-distended, positive bowel sound Internal Medicine Assmt/Plan - Assessment Assessment: oa schizophrenia dementia - Plan Plan: fall precautions continue current plan of care
--- NOTE | 2017-07-13 01:33 | Progress Notes ---
DATE: 07/12/2017 A 66-year-old female coming in from a half-way. The patient highly delusional, confused, disoriented, mumbling, not making any sense. Staff noting she is preoccupied with her glasses, episodes of crying, not making any sense, in a Lamar chair, hard to redirect, highly confused, disoriented. The patient's daughter is involved in her care. The patient with history of aggressive behaviors, needing constant redirection. ASSESSMENT: The patient poorly oriented, suspicious, highly impulsive and unpredictable. PLAN: We will continue to monitor. Continue Seroquel, Haldol. Given her ongoing symptoms, she is not safe for discharge at this time. Medications were noted. JOB# [id number]
[2017-07-13] MEDS: Lactobacillus Rhamnosus GG 15 Billion CFU CAP.SPRINK PO SCH (08:20)
--- NOTE | 2017-07-13 13:59 | Internal Medicine Prog Note ---
Internal Medicine Subjective - Subjective Service Date: 07/13/17 Patient is:: awake, verbal Per staff patient has:: tolerating meds Internal Medicine Objective - Physical Exam Vitals and I&O: Vital Signs Temp 97.8 F 07/13/17 06:00 Pulse 93 07/13/17 06:00 Resp 20 07/13/17 06:00 BP 108/69 07/13/17 06:00 Pulse Ox 93 07/13/17 06:00 Active Medications: Current Medications Acetaminophen (Tylenol) 650 mg PO Q4H PRN PRN Reason: MILD PAIN OR FEVER ABOVE 101 Stop: 09/07/17 13:24 Last Admin: 07/10/17 06:59 Dose: 650 mg Albuterol Sulfate (Albuterol 2.5mg/3ml Neb Ud) 2.5 mg HHN Q4H PRN PRN Reason: SOB OR WHEEZE Stop: 09/07/17 13:26 Cholecalciferol (Vitamin D3) 2,000 iu PO DAILY [facility] Stop: 09/08/17 08:59 Last Admin: 07/13/17 08:21 Dose: 2,000 iu Divalproex Sodium (Depakote Dr) 250 mg PO BID [facility]; Protocol Stop: 09/07/17 21:59 Last Admin: 07/13/17 08:20 Dose: 250 mg Haloperidol (Haldol) 2 mg PO BID [facility]; Protocol Stop: 09/07/17 21:59 Last Admin: 07/13/17 08:20 Dose: 2 mg Ipratropium [place] (Atrovent Neb 0.5mg/2.5ml) 0.5 mg HHN Q4HRT PRN PRN Reason: sob Stop: 09/07/17 14:59 Lactobacillus Rhamnosus (Culturelle 15b) 1 each PO DAILY [facility] Stop: 09/08/17 08:59 Last Admin: 07/13/17 08:20 Dose: 1 each Lorazepam (Ativan) 0.5 mg PO Q4HR PRN; Protocol PRN Reason: Agitation Stop: 09/07/17 21:11 Last Admin: 07/12/17 21:08 Dose: 0.5 mg Memantine (Namenda) 5 mg PO DAILY [facility] Stop: 09/12/17 08:59 Ondansetron HCl (Zofran Odt) 4 mg PO Q8H PRN PRN Reason: Nausea / Vomiting Stop: 09/07/17 13:41 Quetiapine Fumarate (Seroquel) 400 mg PO HS [facility]; Protocol Stop: 09/07/17 21:59 Last Admin: 07/12/17 21:07 Dose: 400 mg Quetiapine Fumarate (Seroquel Xr) 200 mg PO BID [facility]; Protocol Stop: 09/08/17 08:59 Last Admin: 07/13/17 08:20 Dose: 200 mg Tramadol HCl (Ultram) 50 mg PO Q6HR PRN PRN Reason: Severe Pain Stop: 09/07/17 13:42 Last Admin: 07/11/17 18:43 Dose: 50 mg Zolpidem Tartrate (Ambien) 5 mg PO HS PRN PRN Reason: Insomnia Stop: 09/07/17 21:12 Last Admin: 07/11/17 20:57 Dose: 5 mg General: alert HEENT: NC/AT, PERRLA Neck: Supple Lungs: CTAB Cardiovascular: RRR, Normal S1, Normal S2, without murmur Abdomen: soft, non-tender, non-distended, positive bowel sound Internal Medicine Assmt/Plan - Assessment Assessment: oa schizophrenia dementia - Plan Plan: fall precautions continue current plan of care
--- NOTE | 2017-07-14 07:55 | Progress Notes ---
DATE: 07/13/2017 SUBJECTIVE: The patient coming in from a custodial facility, highly delusional, confused, disoriented. Nursing staff noting that she is very confused, disoriented, requiring a lot of redirection and prompting, not making any sense, wandering, currently in a Lamar chair. Currently on Haldol and also Seroquel. The patient may benefit from dosings of Aricept and Namenda. Vital were reviewed as well as her heart rate. ASSESSMENT: The patient remains symptomatic, highly confused, disoriented, nonsensical, and requiring a lot of prompting, redirection, ongoing psychotic symptoms. PLAN: We will continue to monitor. Given her ongoing symptoms, she is not safe for discharge. She remains quite unruly at times, delusional. JOB# [id number]
[2017-07-14] MEDS: Lactobacillus Rhamnosus GG 15 Billion CFU CAP.SPRINK PO SCH (08:08)
--- NOTE | 2017-07-14 15:44 | Internal Medicine Prog Note ---
Internal Medicine Subjective - Subjective Service Date: 07/14/17 Patient is:: awake, verbal Per staff patient has:: tolerating meds Internal Medicine Objective - Physical Exam Vitals and I&O: Vital Signs Temp 98.3 F 07/14/17 14:00 Pulse 75 07/14/17 14:00 Resp 18 07/14/17 14:00 BP 108/59 07/14/17 14:00 Pulse Ox 97 07/14/17 14:00 Active Medications: Current Medications Acetaminophen (Tylenol) 650 mg PO Q4H PRN PRN Reason: MILD PAIN OR FEVER ABOVE 101 Stop: 09/07/17 13:24 Last Admin: 07/10/17 06:59 Dose: 650 mg Albuterol Sulfate (Albuterol 2.5mg/3ml Neb Ud) 2.5 mg HHN Q4H PRN PRN Reason: SOB OR WHEEZE Stop: 09/07/17 13:26 Cholecalciferol (Vitamin D3) 2,000 iu PO DAILY [facility] Stop: 09/08/17 08:59 Last Admin: 07/14/17 08:08 Dose: 2,000 iu Divalproex Sodium (Depakote Dr) 250 mg PO BID [facility]; Protocol Stop: 09/07/17 21:59 Last Admin: 07/14/17 08:08 Dose: 250 mg Haloperidol (Haldol) 3 mg PO BID [facility]; Protocol Stop: 09/12/17 16:59 Ipratropium [place] (Atrovent Neb 0.5mg/2.5ml) 0.5 mg HHN Q4HRT PRN PRN Reason: sob Stop: 09/07/17 14:59 Lactobacillus Rhamnosus (Culturelle 15b) 1 each PO DAILY [facility] Stop: 09/08/17 08:59 Last Admin: 07/14/17 08:08 Dose: 1 each Lorazepam (Ativan) 0.5 mg PO Q4HR PRN; Protocol PRN Reason: Agitation Stop: 09/07/17 21:11 Last Admin: 07/14/17 14:53 Dose: 0.5 mg Memantine (Namenda) 5 mg PO DAILY [facility] Stop: 09/12/17 08:59 Last Admin: 07/14/17 08:49 Dose: Not Given Ondansetron HCl (Zofran Odt) 4 mg PO Q8H PRN PRN Reason: Nausea / Vomiting Stop: 09/07/17 13:41 Quetiapine Fumarate (Seroquel) 400 mg PO HS [facility]; Protocol Stop: 09/07/17 21:59 Last Admin: 07/13/17 20:45 Dose: 400 mg Quetiapine Fumarate (Seroquel Xr) 200 mg PO BID [facility]; Protocol Stop: 09/08/17 08:59 Last Admin: 07/14/17 08:08 Dose: 200 mg Tramadol HCl (Ultram) 50 mg PO Q6HR PRN PRN Reason: Severe Pain Stop: 09/07/17 13:42 Last Admin: 07/11/17 18:43 Dose: 50 mg Zolpidem Tartrate (Ambien) 5 mg PO HS PRN PRN Reason: Insomnia Stop: 09/07/17 21:12 Last Admin: 07/13/17 22:19 Dose: 5 mg General: alert HEENT: NC/AT, PERRLA Neck: Supple Lungs: CTAB Cardiovascular: RRR, Normal S1, Normal S2, without murmur Abdomen: soft, non-tender, non-distended, positive bowel sound Internal Medicine Assmt/Plan - Assessment Assessment: oa schizophrenia dementia - Plan Plan: fall precautions continue current plan of care Nutritional Asmnt/Malnutr-PDOC - Dietary Evaluation Malnutrition Findings (Please click <Entered> for more info): Nutritional Asmnt/Malnutrition Start: 07/13/17 14: 24 Text: Status: Complete Freq: Protocol: Document 07/13/17 14:24 LCALEXANDREG (Rec: 07/13/17 14:30 SERG [email or web address]) Nutritional Asmnt/Malnutrition Patient General Information Nutritional Screening Moderate Risk Diagnosis psychosis Pertinent Medical Hx/Surgical Hx hip discolcation, OA, schizophrenia, dementia, opioid dependence, hip surgery Subjective Information Pt seen sleeping in leti-chair in hallway at time of visit. Per EMR, PO intake 75-100%. Current Diet Order/ Nutrition Support regular Pertinent Medications vit D3, culturelle, seroquel Pertinent Labs no labs Nutritional Hx/Data Height 5 ft 6 in Height (Calculated Centimeters) 167.6 Current Weight (lbs) 176 lb Weight (Calculated Kilograms) 79.8 Weight (Calculated Grams) 81710.3 [place] Body Weight 130 Body Mass Index (BMI) 28.4 Weight Status Overweight GI Symptoms GI Symptoms None Last BM none Difficult in: None Skin Integrity/Comment: intact Current %PO Good (75-100%) Estimated Nutritional Goals Calories/Kcals/Kg 25-30 based on IBW 59kg Kcals Calculated 6390-8920 Protein g/k Protein Calculated 59 Fluid: ml 1475-1770ml (1kcal/kg) Nutritional Problem No current Nutrition Prob Problem N/A Malnutrition Alert Is there a minimum of two criteria No selected? Query Text:Check all the applicable criteria. A minimum of two criteria are recommended for diagnosis of either severe or non-severe malnutrition. Malnutrition Related to Morbid Obesity Malnutrition related to morbid obesity No Intervention/Recommendation Comments 1. Continue with regular diet as ordered. 2. Monitor PO intake, wt, labs and skin integrity 3. F/U as low risk in 7 days, 07/20 Expected Outcomes/Goals Expected Outcomes/Goals 1. PO intake to meet at least 75% of nutritional needs. 2. Wt stability, skin to remain intact, labs to approach WNL.
[2017-07-15] MEDS: Lactobacillus Rhamnosus GG 15 Billion CFU CAP.SPRINK PO SCH (08:15)
--- NOTE | 2017-07-15 14:44 | Internal Medicine Prog Note ---
Internal Medicine Subjective - Subjective Service Date: 07/15/17 Patient is:: awake, verbal Per staff patient has:: tolerating meds Internal Medicine Objective - Physical Exam Vitals and I&O: Vital Signs Temp 97.5 F 07/15/17 07:30 Pulse 85 07/15/17 07:30 Resp 19 07/15/17 07:30 BP 106/66 07/15/17 07:30 Pulse Ox 98 07/15/17 07:30 Intake & Output 07/14/17 07/15/17 07/15/17 18:59 06:59 18:59 Intake Total 1200 200 200 Balance 1200 200 200 Intake: Oral 1200 200 200 Other: # Voids 3 3 3 # Bowel Movements 1 0 1 Active Medications: Current Medications Acetaminophen (Tylenol) 650 mg PO Q4H PRN PRN Reason: MILD PAIN OR FEVER ABOVE 101 Stop: 09/07/17 13:24 Last Admin: 07/10/17 06:59 Dose: 650 mg Albuterol Sulfate (Albuterol 2.5mg/3ml Neb Ud) 2.5 mg HHN Q4H PRN PRN Reason: SOB OR WHEEZE Stop: 09/07/17 13:26 Cholecalciferol (Vitamin D3) 2,000 iu PO DAILY [facility] Stop: 09/08/17 08:59 Last Admin: 07/15/17 08:13 Dose: 2,000 iu Divalproex Sodium (Depakote Dr) 250 mg PO BID [facility]; Protocol Stop: 09/07/17 21:59 Last Admin: 07/15/17 08:15 Dose: 250 mg Haloperidol (Haldol) 3 mg PO BID [facility]; Protocol Stop: 09/12/17 16:59 Last Admin: 07/15/17 08:14 Dose: 3 mg Ipratropium [place] (Atrovent Neb 0.5mg/2.5ml) 0.5 mg HHN Q4HRT PRN PRN Reason: sob Stop: 09/07/17 14:59 Lactobacillus Rhamnosus (Culturelle 15b) 1 each PO DAILY [facility] Stop: 09/08/17 08:59 Last Admin: 07/15/17 08:15 Dose: 1 each Lorazepam (Ativan) 0.5 mg PO Q4HR PRN; Protocol PRN Reason: Agitation Stop: 09/07/17 21:11 Last Admin: 07/15/17 09:14 Dose: 0.5 mg Memantine (Namenda) 5 mg PO DAILY [facility] Stop: 09/12/17 08:59 Last Admin: 07/15/17 08:15 Dose: 5 mg Ondansetron HCl (Zofran Odt) 4 mg PO Q8H PRN PRN Reason: Nausea / Vomiting Stop: 09/07/17 13:41 Quetiapine Fumarate (Seroquel) 400 mg PO HS [facility]; Protocol Stop: 09/07/17 21:59 Last Admin: 07/14/17 21:01 Dose: 400 mg Quetiapine Fumarate (Seroquel Xr) 200 mg PO BID [facility]; Protocol Stop: 09/08/17 08:59 Last Admin: 07/15/17 08:14 Dose: 200 mg Tramadol HCl (Ultram) 50 mg PO Q6HR PRN PRN Reason: Severe Pain Stop: 09/07/17 13:42 Last Admin: 07/11/17 18:43 Dose: 50 mg Zolpidem Tartrate (Ambien) 5 mg PO HS PRN PRN Reason: Insomnia Stop: 09/07/17 21:12 Last Admin: 07/13/17 22:19 Dose: 5 mg General: alert HEENT: NC/AT, PERRLA Neck: Supple Lungs: CTAB Cardiovascular: RRR, Normal S1, Normal S2, without murmur Abdomen: soft, non-tender, non-distended, positive bowel sound Internal Medicine Assmt/Plan - Assessment Assessment: oa schizophrenia dementia - Plan Plan: fall precautions continue current plan of care Nutritional Asmnt/Malnutr-PDOC - Dietary Evaluation Malnutrition Findings (Please click <Entered> for more info): Nutritional Asmnt/Malnutrition Start: 07/13/17 14: 24 Text: Status: Complete Freq: Protocol: Document 07/13/17 14:24 SERG (Rec: 07/13/17 14:30 LCAUSTIN [email or web address]) Nutritional Asmnt/Malnutrition Patient General Information Nutritional Screening Moderate Risk Diagnosis psychosis Pertinent Medical Hx/Surgical Hx hip discolcation, OA, schizophrenia, dementia, opioid dependence, hip surgery Subjective Information Pt seen sleeping in leti-chair in hallway at time of visit. Per EMR, PO intake 75-100%. Current Diet Order/ Nutrition Support regular Pertinent Medications vit D3, culturelle, seroquel Pertinent Labs no labs Nutritional Hx/Data Height 5 ft 6 in Height (Calculated Centimeters) 167.6 Current Weight (lbs) 176 lb Weight (Calculated Kilograms) 79.8 Weight (Calculated Grams) 90529.3 [place] Body Weight 130 Body Mass Index (BMI) 28.4 Weight Status Overweight GI Symptoms GI Symptoms None Last BM none Difficult in: None Skin Integrity/Comment: intact Current %PO Good (75-100%) Estimated Nutritional Goals Calories/Kcals/Kg 25-30 based on IBW 59kg Kcals Calculated 9387-7138 Protein g/k Protein Calculated 59 Fluid: ml 1475-1770ml (1kcal/kg) Nutritional Problem No current Nutrition Prob Problem N/A Malnutrition Alert Is there a minimum of two criteria No selected? Query Text:Check all the applicable criteria. A minimum of two criteria are recommended for diagnosis of either severe or non-severe malnutrition. Malnutrition Related to Morbid Obesity Malnutrition related to morbid obesity No Intervention/Recommendation Comments 1. Continue with regular diet as ordered. 2. Monitor PO intake, wt, labs and skin integrity 3. F/U as low risk in 7 days, 07/20 Expected Outcomes/Goals Expected Outcomes/Goals 1. PO intake to meet at least 75% of nutritional needs. 2. Wt stability, skin to remain intact, labs to approach WNL.
--- NOTE | 2017-07-15 19:23 | Progress Notes ---
DATE: 07/14/2017 SUBJECTIVE: A 66-year-old female, very confused, disoriented, nonsensical, get agitated, tries to get up. The patient requiring a near constant redirection in a Lamar chair. Staff noting still with some bouts of impulsivity, agitation, and unruly behaviors. The patient is sleeping fairly well at night, eating with prompting. ASSESSMENT: The patient remains symptomatic, confused, disoriented, still requiring a near constant redirection, still unruly. PLAN: We will increase Haldol today. I am recommending a locked fci facility placement or alternatively a locked dementia unit as the patient's cognitive impairment is very advanced. I have seen this patient in traditional fci facility before. This is a completely inappropriate plan for her staff as any traditional fci facility cannot handle her behavior disturbances and her level of dementia. JOB# [id number]
[2017-07-16] MEDS: Lactobacillus Rhamnosus GG 15 Billion CFU CAP.SPRINK PO SCH (08:37)
--- NOTE | 2017-07-16 11:55 | Internal Medicine Prog Note ---
Internal Medicine Subjective - Subjective Service Date: 07/16/17 Patient is:: awake, verbal Per staff patient has:: tolerating meds Internal Medicine Objective - Physical Exam Vitals and I&O: Vital Signs Temp 97.6 F 07/15/17 14:00 Pulse 99 07/15/17 14:00 Resp 19 07/15/17 14:00 BP 112/78 07/15/17 14:00 Pulse Ox 98 07/15/17 14:00 Intake & Output 07/15/17 07/16/17 07/16/17 18:59 06:59 18:59 Intake Total 200 480 Balance 200 480 Intake: Oral 200 480 Other: # Voids 3 2 # Bowel Movements 1 Active Medications: Current Medications Acetaminophen (Tylenol) 650 mg PO Q4H PRN PRN Reason: MILD PAIN OR FEVER ABOVE 101 Stop: 09/07/17 13:24 Last Admin: 07/10/17 06:59 Dose: 650 mg Albuterol Sulfate (Albuterol 2.5mg/3ml Neb Ud) 2.5 mg HHN Q4H PRN PRN Reason: SOB OR WHEEZE Stop: 09/07/17 13:26 Cholecalciferol (Vitamin D3) 2,000 iu PO DAILY GEOFFREY Stop: 09/08/17 08:59 Last Admin: 07/16/17 08:37 Dose: 2,000 iu Divalproex Sodium (Depakote Dr) 250 mg PO BID GEOFFREY; Protocol Stop: 09/07/17 21:59 Last Admin: 07/16/17 08:38 Dose: 250 mg Haloperidol (Haldol) 3 mg PO BID GEOFFREY; Protocol Stop: 09/12/17 16:59 Last Admin: 07/16/17 08:38 Dose: 3 mg Ipratropium [place] (Atrovent Neb 0.5mg/2.5ml) 0.5 mg HHN Q4HRT PRN PRN Reason: sob Stop: 09/07/17 14:59 Lactobacillus Rhamnosus (Culturelle 15b) 1 each PO DAILY GEOFFREY Stop: 09/08/17 08:59 Last Admin: 07/16/17 08:37 Dose: 1 each Lorazepam (Ativan) 0.5 mg PO Q4HR PRN; Protocol PRN Reason: Agitation Stop: 09/07/17 21:11 Last Admin: 07/15/17 09:14 Dose: 0.5 mg Memantine (Namenda) 5 mg PO DAILY GEOFFREY Stop: 09/12/17 08:59 Last Admin: 07/16/17 08:37 Dose: 5 mg Ondansetron HCl (Zofran Odt) 4 mg PO Q8H PRN PRN Reason: Nausea / Vomiting Stop: 09/07/17 13:41 Quetiapine Fumarate (Seroquel) 400 mg PO HS GEOFFREY; Protocol Stop: 09/07/17 21:59 Last Admin: 07/15/17 21:14 Dose: 400 mg Quetiapine Fumarate (Seroquel Xr) 200 mg PO BID GEOFFREY; Protocol Stop: 09/08/17 08:59 Last Admin: 07/16/17 08:37 Dose: 200 mg Tramadol HCl (Ultram) 50 mg PO Q6HR PRN PRN Reason: Severe Pain Stop: 09/07/17 13:42 Last Admin: 07/11/17 18:43 Dose: 50 mg Zolpidem Tartrate (Ambien) 5 mg PO HS PRN PRN Reason: Insomnia Stop: 09/07/17 21:12 Last Admin: 07/16/17 01:35 Dose: 5 mg General: alert HEENT: NC/AT, PERRLA Neck: Supple Lungs: CTAB Cardiovascular: RRR, Normal S1, Normal S2, without murmur Abdomen: soft, non-tender, non-distended, positive bowel sound Internal Medicine Assmt/Plan - Assessment Assessment: oa schizophrenia dementia - Plan Plan: fall precautions continue current plan of care Nutritional Asmnt/Malnutr-PDOC - Dietary Evaluation Malnutrition Findings (Please click <Entered> for more info): Nutritional Asmnt/Malnutrition Start: 07/13/17 14: 24 Text: Status: Complete Freq: Protocol: Document 07/13/17 14:24 LCHENG (Rec: 07/13/17 14:30 [email or web address]) Nutritional Asmnt/Malnutrition Patient General Information Nutritional Screening Moderate Risk Diagnosis psychosis Pertinent Medical Hx/Surgical Hx hip discolcation, OA, schizophrenia, dementia, opioid dependence, hip surgery Subjective Information Pt seen sleeping in leti-chair in hallway at time of visit. Per EMR, PO intake 75-100%. Current Diet Order/ Nutrition Support regular Pertinent Medications vit D3, culturelle, seroquel Pertinent Labs no labs Nutritional Hx/Data Height 5 ft 6 in Height (Calculated Centimeters) 167.6 Current Weight (lbs) 176 lb Weight (Calculated Kilograms) 79.8 Weight (Calculated Grams) 65205.3 [place] Body Weight 130 Body Mass Index (BMI) 28.4 Weight Status Overweight GI Symptoms GI Symptoms None Last BM none Difficult in: None Skin Integrity/Comment: intact Current %PO Good (75-100%) Estimated Nutritional Goals Calories/Kcals/Kg 25-30 based on IBW 59kg Kcals Calculated 6547-3125 Protein g/k Protein Calculated 59 Fluid: ml 1475-1770ml (1kcal/kg) Nutritional Problem No current Nutrition Prob Problem N/A Malnutrition Alert Is there a minimum of two criteria No selected? Query Text:Check all the applicable criteria. A minimum of two criteria are recommended for diagnosis of either severe or non-severe malnutrition. Malnutrition Related to Morbid Obesity Malnutrition related to morbid obesity No Intervention/Recommendation Comments 1. Continue with regular diet as ordered. 2. Monitor PO intake, wt, labs and skin integrity 3. F/U as low risk in 7 days, 07/20 Expected Outcomes/Goals Expected Outcomes/Goals 1. PO intake to meet at least 75% of nutritional needs. 2. Wt stability, skin to remain intact, labs to approach WNL.
--- NOTE | 2017-07-16 16:48 | Progress Notes ---
DATE: SUBJECTIVE: The patient seen, chart reviewed, discussed with staff. The patient is currently in the hospital very confused, disoriented, mumbling nonsensically. The patient disoriented, cannot care for her basic needs. The patient gets agitated, needing a Lamar chair at times. The patient needing a near constant redirection, supervision, and trying to leave the unit, wandering to one side of the unit, going to another side of the unit, going to the nursing station, making bizarre statements. Recent dose increase of Haldol yesterday. ASSESSMENT: The patient remains agitated, highly confused, disoriented, needing constant ___ redirection. The state of her dementia and impairment is very advanced. PLAN: We will continue to monitor. I did increase Haldol yesterday, the patient will need a locked dementia unit as a traditional correction spent incapable historically of caring for herself given the severity of her behavior. JOB# [id number] STONE
[2017-07-17] MEDS: Lactobacillus Rhamnosus GG 15 Billion CFU CAP.SPRINK PO SCH (09:35)
--- NOTE | 2017-07-17 13:37 | Internal Medicine Prog Note ---
Internal Medicine Subjective - Subjective Patient seen and examined:: with staff, chart reviewed Patient is:: awake, verbal, interactive, leti chair Per staff patient has:: no adverse event, no episodes of fall, poor appetite, tolerating meds Internal Medicine Objective - Physical Exam Vitals and I&O: Vital Signs Temp 97.7 F 07/16/17 19:43 Pulse 97 07/16/17 19:43 Resp 18 07/16/17 19:43 BP 118/74 07/16/17 19:43 Pulse Ox 98 07/16/17 19:43 Intake & Output 07/16/17 07/17/17 07/17/17 18:59 06:59 18:59 Intake Total 480 Balance 480 Intake: Oral 480 Other: # Voids 2 Active Medications: Current Medications Acetaminophen (Tylenol) 650 mg PO Q4H PRN PRN Reason: MILD PAIN OR FEVER ABOVE 101 Stop: 09/07/17 13:24 Last Admin: 07/10/17 06:59 Dose: 650 mg Albuterol Sulfate (Albuterol 2.5mg/3ml Neb Ud) 2.5 mg HHN Q4H PRN PRN Reason: SOB OR WHEEZE Stop: 09/07/17 13:26 Cholecalciferol (Vitamin D3) 2,000 iu PO DAILY [facility] Stop: 09/08/17 08:59 Last Admin: 07/17/17 09:35 Dose: 2,000 iu Divalproex Sodium (Depakote Dr) 250 mg PO BID GEOFFREY; Protocol Stop: 09/07/17 21:59 Last Admin: 07/17/17 09:34 Dose: 250 mg Haloperidol (Haldol) 4 mg PO BID GEOFFREY; Protocol Stop: 09/15/17 08:59 Last Admin: 07/17/17 09:35 Dose: 4 mg Ipratropium [place] (Atrovent Neb 0.5mg/2.5ml) 0.5 mg HHN Q4HRT PRN PRN Reason: sob Stop: 09/07/17 14:59 Lactobacillus Rhamnosus (Culturelle 15b) 1 each PO DAILY GEOFFREY Stop: 09/08/17 08:59 Last Admin: 07/17/17 09:35 Dose: 1 each Lorazepam (Ativan) 0.5 mg PO Q4HR PRN; Protocol PRN Reason: Agitation Stop: 09/07/17 21:11 Last Admin: 07/17/17 10:30 Dose: 0.5 mg Memantine (Namenda) 5 mg PO DAILY GEOFFREY Stop: 09/12/17 08:59 Last Admin: 07/17/17 09:35 Dose: 5 mg Ondansetron HCl (Zofran Odt) 4 mg PO Q8H PRN PRN Reason: Nausea / Vomiting Stop: 09/07/17 13:41 Quetiapine Fumarate (Seroquel) 400 mg PO HS GEOFFREY; Protocol Stop: 09/07/17 21:59 Last Admin: 07/16/17 21:13 Dose: 400 mg Quetiapine Fumarate (Seroquel Xr) 200 mg PO BID GEOFFREY; Protocol Stop: 09/08/17 08:59 Last Admin: 07/17/17 09:35 Dose: 200 mg Tramadol HCl (Ultram) 50 mg PO Q6HR PRN PRN Reason: Severe Pain Stop: 09/07/17 13:42 Last Admin: 07/11/17 18:43 Dose: 50 mg Zolpidem Tartrate (Ambien) 5 mg PO HS PRN PRN Reason: Insomnia Stop: 09/07/17 21:12 Last Admin: 07/16/17 01:35 Dose: 5 mg General: demented HEENT: NC/AT, PERRLA Neck: Supple Lungs: CTAB Cardiovascular: RRR, Normal S1, Normal S2, without murmur Abdomen: soft, non-tender, non-distended, positive bowel sound Extremities: excoriation, contracture Neurological: no change Internal Medicine Assmt/Plan - Assessment Assessment: - Assessment Assessment: oa schizophrenia dementia - Plan Plan: fall precautions continue current plan of care aspiraton and gastritis px dw rn Nutritional Asmnt/Malnutr-PDOC - Dietary Evaluation Malnutrition Findings (Please click <Entered> for more info): Nutritional Asmnt/Malnutrition Start: 07/13/17 14: 24 Text: Status: Complete Freq: Protocol: Document 07/13/17 14:24 SERG (Rec: 07/13/17 14:30 SERG [email or web address]) Nutritional Asmnt/Malnutrition Patient General Information Nutritional Screening Moderate Risk Diagnosis psychosis Pertinent Medical Hx/Surgical Hx hip discolcation, OA, schizophrenia, dementia, opioid dependence, hip surgery Subjective Information Pt seen sleeping in leti-chair in hallway at time of visit. Per EMR, PO intake 75-100%. Current Diet Order/ Nutrition Support regular Pertinent Medications vit D3, culturelle, seroquel Pertinent Labs no labs Nutritional Hx/Data Height 1.68 m Height (Calculated Centimeters) 167.6 Current Weight (lbs) 79.832 kg Weight (Calculated Kilograms) 79.8 Weight (Calculated Grams) 76339.3 [place] Body Weight 130 Body Mass Index (BMI) 28.4 Weight Status Overweight GI Symptoms GI Symptoms None Last BM none Difficult in: None Skin Integrity/Comment: intact Current %PO Good (75-100%) Estimated Nutritional Goals Calories/Kcals/Kg 25-30 based on IBW 59kg Kcals Calculated 9083-8013 Protein g/k Protein Calculated 59 Fluid: ml 1475-1770ml (1kcal/kg) Nutritional Problem No current Nutrition Prob Problem N/A Malnutrition Alert Is there a minimum of two criteria No selected? Query Text:Check all the applicable criteria. A minimum of two criteria are recommended for diagnosis of either severe or non-severe malnutrition. Malnutrition Related to Morbid Obesity Malnutrition related to morbid obesity No Intervention/Recommendation Comments 1. Continue with regular diet as ordered. 2. Monitor PO intake, wt, labs and skin integrity 3. F/U as low risk in 7 days, 07/20 Expected Outcomes/Goals Expected Outcomes/Goals 1. PO intake to meet at least 75% of nutritional needs. 2. Wt stability, skin to remain intact, labs to approach WNL.
--- NOTE | 2017-07-17 18:00 | Progress Notes ---
DATE: SUBJECTIVE: The patient seen, chart reviewed, discussed with staff. The patient is highly confused, disoriented, stating she is here because of "court order" which is not true. The patient not making any sense, AO to name only, disoriented, bizarre in a Lamar chair, requiring near constant staff redirection, prompting to eat, trying to leave at times, at times unruly, highly impulsive, unpredictable. ASSESSMENT: The patient remains confused, disoriented, still unruly at times and nonsensical on exam. PLAN: We will continue to monitor. I have been making dose adjustments of medications, increasing her Haldol all day at conservatively given her age and the fragility of her current condition. We will continue to monitor. The patient will need a locked correction facility or a locked dementia unit. JOB# [id number]
--- NOTE | 2017-07-17 21:38 | Progress Notes ---
DATE: SUBJECTIVE: The patient seen, chart reviewed, discussed with staff. The patient remains symptomatic, highly confused, disoriented, needing a near constant redirection, easily irritated, confused, ongoing episodes of yelling, screaming, still paranoid, making bizarre statements, nonsensical statements, trying to get up at times. Medications were noted including dosages and frequency, is currently on Depakote, Haldol. Medications were noted. ASSESSMENT: The patient remains symptomatic, still combative, confused, paranoid, nonsensical. Plan will be increasing Haldol today. I will check a Depakote level. Given ongoing symptoms, she remains on acute safety risk. JOB# [id number]
--- NOTE | 2017-07-18 08:05 | Internal Medicine Prog Note ---
Internal Medicine Subjective - Subjective Patient seen and examined:: with staff, chart reviewed Patient is:: awake, verbal, interactive, leti chair Per staff patient has:: no adverse event, no episodes of fall, poor appetite, tolerating meds Internal Medicine Objective - Results Recent Labs: Laboratory Last Values Valproic Acid 17.4 ug/mL (50.0-100.0) L 07/18/17 07:00 - Physical Exam Vitals and I&O: Vital Signs Temp 98.2 F 07/17/17 15:19 Pulse 98 07/17/17 15:19 Resp 19 07/17/17 15:19 BP 111/69 07/17/17 15:19 Pulse Ox 95 07/17/17 15:19 Intake & Output 07/17/17 07/18/17 07/18/17 18:59 06:59 18:59 Intake Total 1500 Balance 1500 Intake: Oral 1500 Other: # Voids 4 # Bowel Movements 1 Active Medications: Current Medications Acetaminophen (Tylenol) 650 mg PO Q4H PRN PRN Reason: MILD PAIN OR FEVER ABOVE 101 Stop: 09/07/17 13:24 Last Admin: 07/10/17 06:59 Dose: 650 mg Albuterol Sulfate (Albuterol 2.5mg/3ml Neb Ud) 2.5 mg HHN Q4H PRN PRN Reason: SOB OR WHEEZE Stop: 09/07/17 13:26 Cholecalciferol (Vitamin D3) 2,000 iu PO DAILY GEOFFREY Stop: 09/08/17 08:59 Last Admin: 07/17/17 09:35 Dose: 2,000 iu Divalproex Sodium (Depakote Dr) 500 mg PO BID GEOFFREY; Protocol Stop: 09/16/17 08:59 Haloperidol (Haldol) 4 mg PO BID GEOFFREY; Protocol Stop: 09/15/17 08:59 Last Admin: 07/17/17 16:49 Dose: 4 mg Ipratropium [place] (Atrovent Neb 0.5mg/2.5ml) 0.5 mg HHN Q4HRT PRN PRN Reason: sob Stop: 09/07/17 14:59 Lactobacillus Rhamnosus (Culturelle 15b) 1 each PO DAILY GEOFFREY Stop: 09/08/17 08:59 Last Admin: 07/17/17 09:35 Dose: 1 each Lorazepam (Ativan) 0.5 mg PO Q4HR PRN; Protocol PRN Reason: Agitation Stop: 09/07/17 21:11 Last Admin: 07/17/17 10:30 Dose: 0.5 mg Memantine (Namenda) 5 mg PO DAILY GEOFFREY Stop: 09/12/17 08:59 Last Admin: 07/17/17 09:35 Dose: 5 mg Ondansetron HCl (Zofran Odt) 4 mg PO Q8H PRN PRN Reason: Nausea / Vomiting Stop: 09/07/17 13:41 Quetiapine Fumarate (Seroquel) 400 mg PO HS GEOFFREY; Protocol Stop: 09/07/17 21:59 Last Admin: 07/17/17 20:22 Dose: 400 mg Quetiapine Fumarate (Seroquel Xr) 200 mg PO BID GEOFFREY; Protocol Stop: 09/08/17 08:59 Last Admin: 07/17/17 16:49 Dose: 200 mg Tramadol HCl (Ultram) 50 mg PO Q6HR PRN PRN Reason: Severe Pain Stop: 09/07/17 13:42 Last Admin: 07/11/17 18:43 Dose: 50 mg Zolpidem Tartrate (Ambien) 5 mg PO HS PRN PRN Reason: Insomnia Stop: 09/07/17 21:12 Last Admin: 07/17/17 20:29 Dose: 5 mg General: demented HEENT: NC/AT, PERRLA Neck: Supple Lungs: CTAB Cardiovascular: RRR, Normal S1, Normal S2, without murmur Abdomen: soft, non-tender, non-distended, positive bowel sound Extremities: excoriation, contracture Neurological: no change Internal Medicine Assmt/Plan - Assessment Assessment: - Assessment Assessment: oa schizophrenia dementia - Plan Plan: fall precautions continue current plan of care aspiraton and gastritis px dw rn - Plan Plan: nat rn Nutritional Asmnt/Malnutr-PDOC - Dietary Evaluation Malnutrition Findings (Please click <Entered> for more info): Nutritional Asmnt/Malnutrition Start: 07/13/17 14: 24 Text: Status: Complete Freq: Protocol: Document 07/13/17 14:24 LCHENG (Rec: 07/13/17 14:30 LCHENG [email or web address]) Nutritional Asmnt/Malnutrition Patient General Information Nutritional Screening Moderate Risk Diagnosis psychosis Pertinent Medical Hx/Surgical Hx hip discolcation, OA, schizophrenia, dementia, opioid dependence, hip surgery Subjective Information Pt seen sleeping in leti-chair in hallway at time of visit. Per EMR, PO intake 75-100%. Current Diet Order/ Nutrition Support regular Pertinent Medications vit D3, culturelle, seroquel Pertinent Labs no labs Nutritional Hx/Data Height 1.68 m Height (Calculated Centimeters) 167.6 Current Weight (lbs) 79.832 kg Weight (Calculated Kilograms) 79.8 Weight (Calculated Grams) 48689.3 [place] Body Weight 130 Body Mass Index (BMI) 28.4 Weight Status Overweight GI Symptoms GI Symptoms None Last BM none Difficult in: None Skin Integrity/Comment: intact Current %PO Good (75-100%) Estimated Nutritional Goals Calories/Kcals/Kg 25-30 based on IBW 59kg Kcals Calculated 1126-3151 Protein g/k Protein Calculated 59 Fluid: ml 1475-1770ml (1kcal/kg) Nutritional Problem No current Nutrition Prob Problem N/A Malnutrition Alert Is there a minimum of two criteria No selected? Query Text:Check all the applicable criteria. A minimum of two criteria are recommended for diagnosis of either severe or non-severe malnutrition. Malnutrition Related to Morbid Obesity Malnutrition related to morbid obesity No Intervention/Recommendation Comments 1. Continue with regular diet as ordered. 2. Monitor PO intake, wt, labs and skin integrity 3. F/U as low risk in 7 days, 07/20 Expected Outcomes/Goals Expected Outcomes/Goals 1. PO intake to meet at least 75% of nutritional needs. 2. Wt stability, skin to remain intact, labs to approach WNL.
[2017-07-18] MEDS: Lactobacillus Rhamnosus GG 15 Billion CFU CAP.SPRINK PO SCH (08:53)
--- NOTE | 2017-07-19 04:33 | Progress Notes ---
DATE: 07/18/2017 SUBJECTIVE: Remains symptomatic, confused, making statements that she "saves people from having to get travel pt" and nonsensical on exam in a Lamar chair. Still remains disruptive, unruly, requiring a lot of prompting, redirection and highly confused, disoriented, can become combative, highly impulsive and unpredictable. Depakote level was quite low at around 17. Per staff, she remains unruly, trying to get up from the Lamar chair, sleeping is very erratic and has been yelling. PLAN: We will continue to monitor. The patient remains quite acute. We will increase Depakote levels today. JOB# [id number]
[2017-07-19] MEDS: Lactobacillus Rhamnosus GG 15 Billion CFU CAP.SPRINK PO SCH (08:43)
--- NOTE | 2017-07-19 11:37 | Internal Medicine Prog Note ---
Internal Medicine Subjective - Subjective Service Date: 07/19/17 Patient seen and examined:: with staff Patient is:: awake, verbal, interactive, leti chair Per staff patient has:: no adverse event, no episodes of fall, poor appetite, tolerating meds Internal Medicine Objective - Results Recent Labs: Laboratory Last Values Valproic Acid 17.4 ug/mL (50.0-100.0) L 07/18/17 07:00 - Physical Exam Vitals and I&O: Vital Signs Temp 98.5 F 07/18/17 19:42 Pulse 99 07/18/17 19:42 Resp 20 07/18/17 19:42 BP 124/93 07/18/17 19:42 Pulse Ox 98 07/18/17 19:42 Intake & Output 07/18/17 07/19/17 07/19/17 18:59 06:59 18:59 Intake Total 1300 240 Balance 1300 240 Intake: Oral 1300 240 Other: # Voids 3 2 # Bowel Movements 0 Active Medications: Current Medications Acetaminophen (Tylenol) 650 mg PO Q4H PRN PRN Reason: MILD PAIN OR FEVER ABOVE 101 Stop: 09/07/17 13:24 Last Admin: 07/10/17 06:59 Dose: 650 mg Albuterol Sulfate (Albuterol 2.5mg/3ml Neb Ud) 2.5 mg HHN Q4H PRN PRN Reason: SOB OR WHEEZE Stop: 09/07/17 13:26 Cholecalciferol (Vitamin D3) 2,000 iu PO DAILY [facility] Stop: 09/08/17 08:59 Last Admin: 07/19/17 08:43 Dose: 2,000 iu Divalproex Sodium (Depakote Dr) 500 mg PO BID GEOFFREY; Protocol Stop: 09/16/17 08:59 Last Admin: 07/19/17 08:43 Dose: 500 mg Haloperidol (Haldol) 4 mg PO BID GEOFFREY; Protocol Stop: 09/15/17 08:59 Last Admin: 07/19/17 08:43 Dose: 4 mg Ipratropium [place] (Atrovent Neb 0.5mg/2.5ml) 0.5 mg HHN Q4HRT PRN PRN Reason: sob Stop: 09/07/17 14:59 Lactobacillus Rhamnosus (Culturelle 15b) 1 each PO DAILY GEOFFREY Stop: 09/08/17 08:59 Last Admin: 07/19/17 08:43 Dose: 1 each Lorazepam (Ativan) 0.5 mg PO Q4HR PRN; Protocol PRN Reason: Agitation Stop: 09/07/17 21:11 Last Admin: 07/17/17 10:30 Dose: 0.5 mg Memantine (Namenda) 5 mg PO DAILY GEOFFREY Stop: 09/12/17 08:59 Last Admin: 07/19/17 08:43 Dose: 5 mg Ondansetron HCl (Zofran Odt) 4 mg PO Q8H PRN PRN Reason: Nausea / Vomiting Stop: 09/07/17 13:41 Quetiapine Fumarate (Seroquel) 400 mg PO HS GEOFFREY; Protocol Stop: 09/07/17 21:59 Last Admin: 07/18/17 20:53 Dose: 400 mg Quetiapine Fumarate (Seroquel Xr) 200 mg PO BID GEOFFREY; Protocol Stop: 09/08/17 08:59 Last Admin: 07/19/17 08:43 Dose: 200 mg Tramadol HCl (Ultram) 50 mg PO Q6HR PRN PRN Reason: Severe Pain Stop: 09/07/17 13:42 Last Admin: 07/19/17 08:43 Dose: 50 mg Zolpidem Tartrate (Ambien) 5 mg PO HS PRN PRN Reason: Insomnia Stop: 09/07/17 21:12 Last Admin: 07/18/17 21:44 Dose: 5 mg General: demented HEENT: NC/AT, PERRLA Neck: Supple Lungs: CTAB Cardiovascular: RRR, Normal S1, Normal S2, without murmur Abdomen: soft, non-tender, non-distended, positive bowel sound Extremities: excoriation, contracture Neurological: no change Internal Medicine Assmt/Plan - Assessment Assessment: oa schizophrenia dementia - Plan Plan: fall precautions continue current plan of care Nutritional Asmnt/Malnutr-PDOC - Dietary Evaluation Malnutrition Findings (Please click <Entered> for more info): Nutritional Asmnt/Malnutrition Start: 07/13/17 14: 24 Text: Status: Complete Freq: Protocol: Document 07/13/17 14:24 SERG (Rec: 07/13/17 14:30 SERG [email or web address]) Nutritional Asmnt/Malnutrition Patient General Information Nutritional Screening Moderate Risk Diagnosis psychosis Pertinent Medical Hx/Surgical Hx hip discolcation, OA, schizophrenia, dementia, opioid dependence, hip surgery Subjective Information Pt seen sleeping in leti-chair in hallway at time of visit. Per EMR, PO intake 75-100%. Current Diet Order/ Nutrition Support regular Pertinent Medications vit D3, culturelle, seroquel Pertinent Labs no labs Nutritional Hx/Data Height 5 ft 6 in Height (Calculated Centimeters) 167.6 Current Weight (lbs) 176 lb Weight (Calculated Kilograms) 79.8 Weight (Calculated Grams) 98765.3 [place] Body Weight 130 Body Mass Index (BMI) 28.4 Weight Status Overweight GI Symptoms GI Symptoms None Last BM none Difficult in: None Skin Integrity/Comment: intact Current %PO Good (75-100%) Estimated Nutritional Goals Calories/Kcals/Kg 25-30 based on IBW 59kg Kcals Calculated 1510-3352 Protein g/k Protein Calculated 59 Fluid: ml 1475-1770ml (1kcal/kg) Nutritional Problem No current Nutrition Prob Problem N/A Malnutrition Alert Is there a minimum of two criteria No selected? Query Text:Check all the applicable criteria. A minimum of two criteria are recommended for diagnosis of either severe or non-severe malnutrition. Malnutrition Related to Morbid Obesity Malnutrition related to morbid obesity No Intervention/Recommendation Comments 1. Continue with regular diet as ordered. 2. Monitor PO intake, wt, labs and skin integrity 3. F/U as low risk in 7 days, 07/20 Expected Outcomes/Goals Expected Outcomes/Goals 1. PO intake to meet at least 75% of nutritional needs. 2. Wt stability, skin to remain intact, labs to approach WNL.
--- NOTE | 2017-07-20 06:40 | Progress Notes ---
DATE: 07/19/2017 The patient seems to be somewhat calmer, less aggressive, less intrusive, still confused, making nonsensical statements, still requiring a lot of prompting, redirection, but no emergency medications given over the past 24 hours. I did increase Depakote yesterday as well, seems to be tolerating. She is comfortable and calm at this time. Staff noting that there seems to be some improvement and it seems Haldol is helping. Medications were noted. ASSESSMENT: The patient remains symptomatic, still highly confused, disoriented, very impulsive, unpredictable, but improvement noted. PLAN: We will continue to monitor given ongoing symptoms, there are ongoing safety concerns. We will continue to titrate dosages of medications. [facility]# [id number]
[2017-07-20] MEDS: Lactobacillus Rhamnosus GG 15 Billion CFU CAP.SPRINK PO SCH (08:56)
--- NOTE | 2017-07-20 12:44 | Internal Medicine Prog Note ---
Internal Medicine Subjective - Subjective Service Date: 07/20/17 Patient is:: awake, verbal, interactive, leti chair Per staff patient has:: no adverse event, no episodes of fall, poor appetite, tolerating meds Internal Medicine Objective - Results Recent Labs: Laboratory Last Values Valproic Acid 17.4 ug/mL (50.0-100.0) L 07/18/17 07:00 - Physical Exam Vitals and I&O: Vital Signs Temp 97.7 F 07/20/17 05:50 Pulse 85 07/20/17 05:50 Resp 20 07/20/17 05:50 BP 100/64 07/20/17 05:50 Pulse Ox 97 07/20/17 05:50 Intake & Output 07/19/17 07/20/17 07/20/17 18:59 06:59 18:59 Intake Total 1200 240 Balance 1200 240 Intake: Oral 1200 240 Other: # Voids 3 2 Active Medications: Current Medications Acetaminophen (Tylenol) 650 mg PO Q4H PRN PRN Reason: MILD PAIN OR FEVER ABOVE 101 Stop: 09/07/17 13:24 Last Admin: 07/10/17 06:59 Dose: 650 mg Albuterol Sulfate (Albuterol 2.5mg/3ml Neb Ud) 2.5 mg HHN Q4H PRN PRN Reason: SOB OR WHEEZE Stop: 09/07/17 13:26 Cholecalciferol (Vitamin D3) 2,000 iu PO DAILY [facility] Stop: 09/08/17 08:59 Last Admin: 07/20/17 08:55 Dose: 2,000 iu Divalproex Sodium (Depakote Dr) 500 mg PO BID [facility]; Protocol Stop: 09/16/17 08:59 Last Admin: 07/20/17 08:56 Dose: 500 mg Haloperidol (Haldol) 4 mg PO BID [facility]; Protocol Stop: 09/15/17 08:59 Last Admin: 07/20/17 08:56 Dose: 4 mg Ipratropium [place] (Atrovent Neb 0.5mg/2.5ml) 0.5 mg HHN Q4HRT PRN PRN Reason: sob Stop: 09/07/17 14:59 Lactobacillus Rhamnosus (Culturelle 15b) 1 each PO DAILY [facility] Stop: 09/08/17 08:59 Last Admin: 07/20/17 08:56 Dose: 1 each Lorazepam (Ativan) 0.5 mg PO Q4HR PRN; Protocol PRN Reason: Agitation Stop: 09/07/17 21:11 Last Admin: 07/19/17 20:53 Dose: 0.5 mg Memantine (Namenda) 5 mg PO DAILY [facility] Stop: 09/12/17 08:59 Last Admin: 07/20/17 08:56 Dose: 5 mg Ondansetron HCl (Zofran Odt) 4 mg PO Q8H PRN PRN Reason: Nausea / Vomiting Stop: 09/07/17 13:41 Quetiapine Fumarate (Seroquel) 400 mg PO HS [facility]; Protocol Stop: 09/07/17 21:59 Last Admin: 07/19/17 20:53 Dose: 400 mg Quetiapine Fumarate (Seroquel Xr) 200 mg PO BID [facility]; Protocol Stop: 09/08/17 08:59 Last Admin: 07/20/17 09:11 Dose: 200 mg Tramadol HCl (Ultram) 50 mg PO Q6HR PRN PRN Reason: Severe Pain Stop: 09/07/17 13:42 Last Admin: 07/19/17 08:43 Dose: 50 mg Zolpidem Tartrate (Ambien) 5 mg PO HS PRN PRN Reason: Insomnia Stop: 09/07/17 21:12 Last Admin: 07/19/17 20:54 Dose: 5 mg General: demented HEENT: NC/AT, PERRLA Neck: Supple Lungs: CTAB Cardiovascular: RRR, Normal S1, Normal S2, without murmur Abdomen: soft, non-tender, non-distended, positive bowel sound Extremities: excoriation, contracture Neurological: no change Internal Medicine Assmt/Plan - Assessment Assessment: oa schizophrenia dementia - Plan Plan: fall precautions continue current plan of care Nutritional Asmnt/Malnutr-PDOC - Dietary Evaluation Malnutrition Findings (Please click <Entered> for more info): Nutritional Asmnt/Malnutrition Start: 07/13/17 14: 24 Text: Status: Complete Freq: Protocol: Document 07/13/17 14:24 SERG (Rec: 07/13/17 14:30 SERG [id number]) Nutritional Asmnt/Malnutrition Patient General Information Nutritional Screening Moderate Risk Diagnosis psychosis Pertinent Medical Hx/Surgical Hx hip discolcation, OA, schizophrenia, dementia, opioid dependence, hip surgery Subjective Information Pt seen sleeping in leti-chair in hallway at time of visit. Per EMR, PO intake 75-100%. Current Diet Order/ Nutrition Support regular Pertinent Medications vit D3, culturelle, seroquel Pertinent Labs no labs Nutritional Hx/Data Height 5 ft 6 in Height (Calculated Centimeters) 167.6 Current Weight (lbs) 176 lb Weight (Calculated Kilograms) 79.8 Weight (Calculated Grams) 93820.3 [place] Body Weight 130 Body Mass Index (BMI) 28.4 Weight Status Overweight GI Symptoms GI Symptoms None Last BM none Difficult in: None Skin Integrity/Comment: intact Current %PO Good (75-100%) Estimated Nutritional Goals Calories/Kcals/Kg 25-30 based on IBW 59kg Kcals Calculated 4326-3113 Protein g/k Protein Calculated 59 Fluid: ml 1475-1770ml (1kcal/kg) Nutritional Problem No current Nutrition Prob Problem N/A Malnutrition Alert Is there a minimum of two criteria No selected? Query Text:Check all the applicable criteria. A minimum of two criteria are recommended for diagnosis of either severe or non-severe malnutrition. Malnutrition Related to Morbid Obesity Malnutrition related to morbid obesity No Intervention/Recommendation Comments 1. Continue with regular diet as ordered. 2. Monitor PO intake, wt, labs and skin integrity 3. F/U as low risk in 7 days, 07/20 Expected Outcomes/Goals Expected Outcomes/Goals 1. PO intake to meet at least 75% of nutritional needs. 2. Wt stability, skin to remain intact, labs to approach WNL.
--- NOTE | 2017-07-21 03:40 | Progress Notes ---
DATE: 07/20/2017 The patient in the hospital, seems to be improving, calmer, less aggressive, less intrusive, less agitated. She remains confused, disoriented, still making some nonsensical comments. Staff noting poor sleep, on and off sleep, up at night rambling to self. We have been having trouble with placing the patient because of her behaviors. The patient currently gravely disabled. She is very confused and disoriented and completely and undeniably unable to take care of her basic needs. We will continue to monitor. Elijahl seems to be helping. JOB# [id number]
[2017-07-21] MEDS: Lactobacillus Rhamnosus GG 15 Billion CFU CAP.SPRINK PO SCH ×2 (08:19→10:16)
--- NOTE | 2017-07-22 02:05 | Progress Notes ---
DATE: 07/21/2017 SUBJECTIVE: The patient in the hospital, calmer, seems to be improving. Currently, gravely disabled, unable to care for her basic needs. She remains confused, sometimes unruly, impulsive and unpredictable, but generally improved, a lot less restless, resting comfortably at this time in a [place] chair. ASSESSMENT: The patient remains symptomatic, unruly, still requiring a lot of redirection, prompting PLAN: We will continue to monitor. We are continually adjusting and reevaluating her medications. I did discuss with staff and case finisher. JOB# [id number]
[2017-07-22] MEDS: Lactobacillus Rhamnosus GG 15 Billion CFU CAP.SPRINK PO SCH (09:04)
--- NOTE | 2017-07-22 11:34 | Internal Medicine Prog Note ---
Internal Medicine Subjective - Subjective Service Date: 07/22/17 Patient is:: awake, verbal, interactive, leti chair Per staff patient has:: no adverse event, no episodes of fall, poor appetite, tolerating meds Internal Medicine Objective - Results Recent Labs: Laboratory Last Values Valproic Acid 17.4 ug/mL (50.0-100.0) L 07/18/17 07:00 - Physical Exam Vitals and I&O: Vital Signs Temp 97.7 F 07/21/17 14:27 Pulse 88 07/21/17 14:27 Resp 18 07/21/17 14:27 BP 118/74 07/21/17 14:27 Pulse Ox 96 07/21/17 14:27 Active Medications: Current Medications Acetaminophen (Tylenol) 650 mg PO Q4H PRN PRN Reason: MILD PAIN OR FEVER ABOVE 101 Stop: 09/07/17 13:24 Last Admin: 07/10/17 06:59 Dose: 650 mg Albuterol Sulfate (Albuterol 2.5mg/3ml Neb Ud) 2.5 mg HHN Q4H PRN PRN Reason: SOB OR WHEEZE Stop: 09/07/17 13:26 Cholecalciferol (Vitamin D3) 2,000 iu PO DAILY [facility] Stop: 09/08/17 08:59 Last Admin: 07/22/17 09:03 Dose: 2,000 iu Divalproex Sodium (Depakote Dr) 500 mg PO BID [facility]; Protocol Stop: 09/16/17 08:59 Last Admin: 07/22/17 09:04 Dose: 500 mg Haloperidol (Haldol) 4 mg PO BID [facility]; Protocol Stop: 09/15/17 08:59 Last Admin: 07/22/17 09:03 Dose: 4 mg Ipratropium [place] (Atrovent Neb 0.5mg/2.5ml) 0.5 mg HHN Q4HRT PRN PRN Reason: sob Stop: 09/07/17 14:59 Lactobacillus Rhamnosus (Culturelle 15b) 1 each PO DAILY [facility] Stop: 09/08/17 08:59 Last Admin: 07/22/17 09:04 Dose: 1 each Lorazepam (Ativan) 0.5 mg PO Q4HR PRN; Protocol PRN Reason: Agitation Stop: 09/07/17 21:11 Last Admin: 07/21/17 20:40 Dose: 0.5 mg Memantine (Namenda) 5 mg PO DAILY [facility] Stop: 09/12/17 08:59 Last Admin: 07/22/17 09:04 Dose: 5 mg Ondansetron HCl (Zofran Odt) 4 mg PO Q8H PRN PRN Reason: Nausea / Vomiting Stop: 09/07/17 13:41 Quetiapine Fumarate (Seroquel) 400 mg PO HS [facility]; Protocol Stop: 09/07/17 21:59 Last Admin: 07/21/17 20:40 Dose: 400 mg Quetiapine Fumarate (Seroquel Xr) 200 mg PO BID [facility]; Protocol Stop: 09/08/17 08:59 Last Admin: 07/22/17 09:04 Dose: 200 mg Tramadol HCl (Ultram) 50 mg PO Q6HR PRN PRN Reason: Severe Pain Stop: 09/07/17 13:42 Last Admin: 07/19/17 08:43 Dose: 50 mg Zolpidem Tartrate (Ambien) 5 mg PO HS PRN PRN Reason: Insomnia Stop: 09/07/17 21:12 Last Admin: 07/21/17 20:41 Dose: 5 mg General: demented HEENT: NC/AT, PERRLA Neck: Supple Lungs: CTAB Cardiovascular: RRR, Normal S1, Normal S2, without murmur Abdomen: soft, non-tender, non-distended, positive bowel sound Extremities: excoriation, contracture Neurological: no change Internal Medicine Assmt/Plan - Assessment Assessment: oa schizophrenia dementia - Plan Plan: fall precautions continue current plan of care Nutritional Asmnt/Malnutr-PDOC - Dietary Evaluation Malnutrition Findings (Please click <Entered> for more info): Nutritional Asmnt/Malnutrition Start: 07/13/17 14: 24 Text: Status: Complete Freq: Protocol: Document 07/13/17 14:24 SERG (Rec: 07/13/17 14:30 SERG [id number]) Nutritional Asmnt/Malnutrition Patient General Information Nutritional Screening Moderate Risk Diagnosis psychosis Pertinent Medical Hx/Surgical Hx hip discolcation, OA, schizophrenia, dementia, opioid dependence, hip surgery Subjective Information Pt seen sleeping in leti-chair in hallway at time of visit. Per EMR, PO intake 75-100%. Current Diet Order/ Nutrition Support regular Pertinent Medications vit D3, culturelle, seroquel Pertinent Labs no labs Nutritional Hx/Data Height 5 ft 6 in Height (Calculated Centimeters) 167.6 Current Weight (lbs) 176 lb Weight (Calculated Kilograms) 79.8 Weight (Calculated Grams) 60058.3 [place] Body Weight 130 Body Mass Index (BMI) 28.4 Weight Status Overweight GI Symptoms GI Symptoms None Last BM none Difficult in: None Skin Integrity/Comment: intact Current %PO Good (75-100%) Estimated Nutritional Goals Calories/Kcals/Kg 25-30 based on IBW 59kg Kcals Calculated 2975-4567 Protein g/k Protein Calculated 59 Fluid: ml 1475-1770ml (1kcal/kg) Nutritional Problem No current Nutrition Prob Problem N/A Malnutrition Alert Is there a minimum of two criteria No selected? Query Text:Check all the applicable criteria. A minimum of two criteria are recommended for diagnosis of either severe or non-severe malnutrition. Malnutrition Related to Morbid Obesity Malnutrition related to morbid obesity No Intervention/Recommendation Comments 1. Continue with regular diet as ordered. 2. Monitor PO intake, wt, labs and skin integrity 3. F/U as low risk in 7 days, 07/20 Expected Outcomes/Goals Expected Outcomes/Goals 1. PO intake to meet at least 75% of nutritional needs. 2. Wt stability, skin to remain intact, labs to approach WNL.
--- NOTE | 2017-07-23 20:24 | Progress Notes ---
DATE: 07/22/2017 The patient ____ calmer, more cooperative. Her behaviors over the past couple of days calmer. No agitation. No escalation of behaviors. No aggressive behaviors. Gestures here remain very confused and disoriented on exam. Sleeping well, but calmer today. The patient approaching her baseline and, likely no SI, no HI. No overt psychotic symptoms. She remains very confused and disoriented, better impulse control. PLAN: ____ been confirmed, the patient likely at baseline. We will discharge today. JOB# [id number]
== END 2017-07-22 15:00 | DRG 885 ==
LOC: GERO2 12:02 → UNDODISIN 07-16 14:00
PROVIDERS: ADMIT Psychiatry & Neurology Psychiatry; ATTEND Psychiatry & Neurology Psychiatry
DX: F20.0 Paranoid schizophrenia (principal); M19.90 Unspecified osteoarthritis, unspecified site; F03.90 Unspecified dementia, unspecified severity, without behavioral disturbance, psychotic disturbance, mood disturbance, and anxiety
CPT/HCPCS: 36415-UA; 80164-TC; 94760; 97530; G0410; J1200; J1630; J2060; X3904; Z7610